=== PATIENT | male | born 1960 | race Caucasian/White ===

== ENCOUNTER 2024-08-27 04:21 | Inpatient (IN) | payer OTHER, SELFPAY ==
[2024-08-26 23:20] VITALS: BP 74/51
[2024-08-26 23:24] VITALS: BP 74/51
[2024-08-26 23:27] VITALS: BMI 31.6
[2024-08-26 23:47] LABS: % Basophils 0.3 % (0-2); % Eosinophils 0.1 % (0-6); % Immature Granulocytes 0.8 % (0-0.5); % Lymphocytes 19.8 % (20.5-51.1); % Monocytes 6.8 % (1.7-9.3); % Neutrophils 72.2 % (42.2-75.2); Absolute Immature Granulocytes 0.1 10^3/uL (0-0.05); Absolute Lymphocytes 1.4 10^3/uL (1.2-3.4); Absolute Monocytes 0.5 10^3/uL (0.1-0.6); Absolute Neutrophils 5.1 10^3/uL (1.4-6.5); Hemoglobin 10.1 g/dL (13.0-18.0); Mean Corp Hgb Conc. 33.7 g/dL (33.0-37.0); Mean Corpuscular Hgb 31.1 pg (27.0-31.0); Mean Corpuscular Volume 92.3 fL (80.0-94.0); Nucleated Red Blood Cells % 0 % (-); Platelet Count 146 10^3/uL (130-400); Red Blood Cell Count 3.25 10^6/uL (4.70-6.10); Red Cell Dist. Width 13.8 % (11.5-14.5); White Blood Cell Count 7.1 10^3/uL (4.8-10.8)
[2024-08-26 23:54] VITALS: BP 83/58
[2024-08-27] VITALS (75 sets, daily range): BP systolic 61–171; BP diastolic 46–145; BMI 31.6; BMI 33.0
[2024-08-27] MEDS: NSS 1000 IV ×5 (00:04→23:26)
--- NOTE | 2024-08-27 00:04 | ED.GENMED ---
History of Present Illness
<Carlos Becerra PA-C - Last Filed: 08/28/24 07:55>
General
Chief Complaint: Dehydration Symptoms
Source: patient, spouse and ambulance crew
Time Seen by Provider: 08/26/24 23:38
History of Present Illness
History of Present Illness:
64-year-old male with past medical history of atrial fibrillation, hypertension (noncompliant with medications secondary to insurance issues) presenting to the ER via EMS for evaluation of a questionable fall, reportedly called EMS because she
found patient on the ground upon getting home from work around 9:30 PM. History from the patient is somewhat limited as patient states that he did not even know he was on the ground at the time. He has no specific complaints at this time other
than he notes that he was a little bit constipated earlier in the week and that he has chronic back pain. Patient currently denies any chest pain, shortness of breath, abdominal pain, extremity related injury, headaches, visual disturbance, focal
weakness or numbness. Patient does have a medication list with him but is unable to recall most of his medications or if he takes them regularly.
Past History
<Carlos Becerra PA-C - Last Filed: 08/28/24 07:55>
Past History
ED Past Medical History: Arrthythmia and HTN
ED Past Surgical History: Orthopedic
Social History
Tobacco: Non-smoker
Alcohol: Former
Drug: None
Personal:
Living: with family
Review of Systems
<Carlos Becerra PA-C - Last Filed: 08/28/24 07:55>
Review of Systems
All Other Systems: ROS reviewed and negative except as documented in HPI and ROS
Phy Exam
<Carlos Becerra PA-C - Last Filed: 08/28/24 07:55>
Physical Exam
Physical Exam:
GENERAL: Alert , in no apparent distress, appears older than stated age, weight, unkempt
HEAD: Scattered superficial abrasions along the right cheek and forehead
EYE: Clear conjunctiva
NECK: Supple, no midline tenderness
ENT: o/p clr, dry mucous membranes
CARDIAC: Irregularly irregular rate and rhythm, heart rate between 106 and 123 bpm
LUNGS: Clear breath sounds bilaterally, no acute respiratory distress, no wheezes/rales/rhonchi
ABDOMEN: Soft, without focal tenderness, no r/g, no cvat, hepatomegaly, mottled right flank
NEUROLOGICAL: Alert and oriented to person place and time but does seem somewhat confused with answering medical related questions about his own personal history, no focal neuro deficits
SKIN: Warm and dry, skin intact., Pale and somewhat mottled
MUSCULOSKELETAL: Trace nonpitting ankle edema, well perfused. Bruising to the dorsum of the left foot
PSYCH: Somewhat flat affect
Scores
<Carlos Becerra PA-C - Last Filed: 08/28/24 07:55>
Heart Failure Risk
Heart Failure Risk Score: Not Applicable
Heart Score for Chest Pain Patients
STEMI patient?: Not applicable
Withdrawal Assessment of Alcohol
Withdrawal Assessment Completed?: Not applicable
Course
<Carlos Becerra PA-C - Last Filed: 08/28/24 07:55>
Orders/Labs/Results
Orders:
Orders
08/26/24 23:31
EKG [Electrocardiogram (*1)] Urgent
Reason for Study: Tachycardia
EKG- Treatment ONCE
08/26/24 23:34
CMP [Comprehensive Metabolic Panel] Urgent
08/26/24 23:35
Complete Blood Count/With Diff Urgent
08/26/24 23:49
0.9% Sodium Chloride 1000 ml [Nss] 1,000 ml IV BOLUS
08/26/24 23:57
Type+Screen Urgent
Alcohol Urgent
Ammonia Urgent
COVID-19 Antigen Urgent
Source: Nasal Swab
Creatine Phosphokinase Urgent
Comment: ADD ON
PTT Urgent
Prothrombin Time Urgent
Influenza A+B Rapid Molecular Urgent
TUTU Source: Nasal Swab
Specimen Description:
08/26/24 23:59
Add On - Microbiology Stat
Tests Added?: cpk
08/27/24 00:00
CT Cervical Spine W/o Iv Contr Urgent
Reason For Exam: ? fall, AMS
CT Chest/abd/pel Wo Iv Cont Urgent
Reason For Exam: hypotension, fall
CT Head W/o Iv Contrast Urgent
Reason For Exam: ? fall, head trauma
08/27/24 01:35
0.9% Sodium Chloride 1000 ml [Nss] 1,000 ml IV BOLUS
08/27/24 03:40
Admit/Transfer Patient As Directed
Co-Sign Provider:
Level of Care: Inpatient admission
Assign to:: IMU- Intermediate Care
Physician / Group: hospitalist
Diagnosis: kidney failure
Reason for Hospitalization: kidney failure
Expected length of stay greater than two midnights?: Yes
ELOS- Estimated Length of Stay in days: 2
I certify the patient meets the requirements for IP care: Yes
PRN Pain Medication Management As Directed
May give lesser potent ordered pain med per pt: Yes
preference::
Protocol:: Medication orders for pain may be administered in a
manner that supports deferring to patient preference
when the pt is:
- Requesting an ordered lesser potent pain medication.
Least to most potent pain medications are defined
as: acetaminophen < NSAID < tramadol < opioids
(morphine, oxycodone, hydromorphone).
- Requesting a lesser dose of the same medication IF
ORDERED.
- Requesting a less intrusive route of administration
if both routes are prescribed by the provider (PO <
IV).
08/27/24 03:41
Code Status As Directed
Resuscitation Status: Full Code
08/27/24 04:27
0.9% Sodium Chloride 1000 ml [Nss] 1,000 ml IV 150 mls/hr
Acetaminophen [Tylenol] 650 mg PO Q4HPRN PRN
Bisacodyl [Dulcolax] 10 mg RECTAL [id number] PRN
Docusate W/Senna [Senokot-S] 1 tablet PO BIDPRN PRN
HYDROmorphone [Dilaudid] 0.5 mg IV Q4HPRN PRN
Ondansetron Injectable [Zofran] 4 mg IV Q6HPRN PRN
Polyethylene Glycol Powder [Miralax] 17 grams PO DAILYPRN PRN
08/27/24 04:27
CARDIOLOGY CONSULT Routine
Consulting Provider: Siomara Martinez
Was physician already notified: No
Reason for consult: afib rvr, metastatic ca, rhabdo
Consult Notification Routine
Specialty to Notify: Cardiology
Date consulting provider notified: 08/27/24
Time consulting provider notified: 10:58
Notified:: Provider
Consult Notification Routine
Specialty to Notify: Nephrology
Date consulting provider notified: 08/27/24
Time consulting provider notified: 10:57
Notified:: Provider
Consult Notification Routine
Specialty to Notify: Oncology
Date consulting provider notified: 08/27/24
Time consulting provider notified: 10:57
Notified:: Provider
NEPHROLOGY CONSULT Routine
Consulting Provider: Bhavya Mejia
Was physician already notified: No
Reason for consult: rhabdo, avery cr 4.4, other labs ok, h/o NICM, dry, bnp pending
ONCOLOGY CONSULT Routine
Consulting Provider: Shagufta Medina
Was physician already notified: No
Reason for consult: new metastatic dz to spine, ribs, hips, unknown prim
Activity As Directed
Activity Level: With Assistance
Bladder Scan As Directed
Follow Bladder Retention/Intermittent Cath Algorithm?: Yes
PRN if no void in __ hours: 6
Frequency: Per Retention Algorithm
If Bladder Scan Result >: 400
then:: Straight cath
Orthostatic Vital Signs As Directed
Orthostatic VS Frequency: Daily
Pneumatic Compression Sleeves As Directed
Type: Knee high
Straight Cath As Directed
Frequency: Per Retention Algorithm
Additional Instructions: straight cath as needed per acute urinary retention algorithm for 24 hrs
Additional Instructions: for bladder scan greater than 400 mL
Vital Signs As Directed
Frequency: Per unit guidelines
Pulse Ox/spot Check [RESP] Routine
Quantity: 1
Pt Eval And Treat Routine
Activity Level: With Assistance
DX Deep Vein Thrombosis Video Routine
08/27/24 Breakfast
Cholesterol Lowering
At Your Request: Limited Participation
Cholesterol Lowering: Sodium, 2 Gram
08/27/24 06:54
ABO2 Urgent
BBK Wristband Number:
Associate notified that ABO2 has been ordered: [id number]
Date: 08/27/24
Time: 00:07
Electrical Prospecting Observer ID: [id number]
CA [id number] [S] IN AM
CEA IN AM
Complete Blood Count/No Diff IN AM
Creatine Phosphokinase IN AM
GGT [GGTP] IN AM
NT-proBNP IN AM
PSA, Total - Screen IN AM
Phosphorus IN AM
TSH IN AM
Vitamin B12 IN AM
Vitamin D, 25-OH IN AM
08/27/24 08:00
Heparin 5,000 units SC Q8
Metoprolol Xl [Toprol Xl] 25 mg PO DAILY
08/27/24 10:30
Urine Protein/Creat Ratio (Random) [Protein/Creat Ratio (Random)] IN AM
Date Specimen was Collected: 08/27/24
Time Specimen was Collected: 10:28
Urine Sodium IN AM
Date Specimen was Collected: 08/27/24
Time Specimen was Collected: 10:28
Abnormal Lab Results
08/26/24 08/26/24 08/26/24
23:34 23:35 23:57
RBC 3.25 L 10^6/uL
(4.70-6.10)
Hgb 10.1 L g/dL
(13.0-18.0)
Hct 30.0 L %
(39.0-52.0)
MCH 31.1 H pg
(27.0-31.0)
Abs Immat Gran (auto) 0.1 H 10^3/uL
(0-0.05)
Immature Gran % 0.8 H %
(0-0.5)
Lymphocytes % 19.8 L %
(20.5-51.1)
PT 26.3 H Sec
(11.4-14.6)
APTT 85.3 H Sec
(23.4-35.0)
Sodium 132 L mmol/L
(135-145)
Chloride 95 L mmol/L
(98-107)
BUN 65 H mg/dl
(9-20)
Creatinine 4.4 H* mg/dL
(0.7-1.3)
Glucose 118 H mg/dl
(70-99)
Calcium 7.7 L mg/dl
(8.4-10.2)
Total Bilirubin 2.1 H mg/dl
(0.2-1.3)
AST 370 H U/L
(17-59)
Alkaline Phosphatase > 2400 H U/L
(38-126)
Ammonia < 9 L umol/L
(9-30)
Creatine Kinase 6235 H U/L
(55-170)
Total Protein 6.0 L g/dl
(6.3-8.2)
08/26/24 23:35
08/26/24 23:34
Vital Signs
Initial and Last Documented VS:
Initial Vital Signs
Temp Pulse BP Pulse Ox
97.3 F 74 74/51 100
08/26/24 23:20 08/26/24 23:20 08/26/24 23:20 08/26/24 23:20
Last Documented Vital Signs
Temp Pulse Resp BP Pulse Ox
98.0 F 112 16 92/53 96
08/28/24 04:25 08/28/24 07:00 08/28/24 07:00 08/28/24 07:00 08/28/24 07:00
<Ganesh Murphy, DO - Last Filed: 08/27/24 00:19>
Orders/Labs/Results
Orders:
Orders
08/26/24 23:31
EKG [Electrocardiogram (*1)] Urgent
Reason for Study: Tachycardia
EKG- Treatment ONCE
08/26/24 23:34
CMP [Comprehensive Metabolic Panel] Urgent
08/26/24 23:35
Complete Blood Count/With Diff Urgent
08/26/24 23:49
0.9% Sodium Chloride 1000 ml [Nss] 1,000 ml IV BOLUS
08/26/24 23:57
Type+Screen Urgent
Alcohol Urgent
Ammonia Urgent
COVID-19 Antigen Urgent
Source: Nasal Swab
Creatine Phosphokinase Urgent
Comment: ADD ON
PTT Urgent
Prothrombin Time Urgent
Influenza A+B Rapid Molecular Urgent
TUTU Source: Nasal Swab
Specimen Description:
08/26/24 23:59
Add On - Microbiology Stat
Tests Added?: cpk
08/27/24 00:00
CT Cervical Spine W/o Iv Contr Urgent
Reason For Exam: ? fall, AMS
CT Chest/abd/pel Wo Iv Cont Urgent
Reason For Exam: hypotension, fall
CT Head W/o Iv Contrast Urgent
Reason For Exam: ? fall, head trauma
08/27/24 01:35
0.9% Sodium Chloride 1000 ml [Nss] 1,000 ml IV BOLUS
08/27/24 03:40
Admit/Transfer Patient As Directed
Co-Sign Provider:
Level of Care: Inpatient admission
Assign to:: IMU- Intermediate Care
Physician / Group: hospitalist
Diagnosis: kidney failure
Reason for Hospitalization: kidney failure
Expected length of stay greater than two midnights?: Yes
ELOS- Estimated Length of Stay in days: 2
I certify the patient meets the requirements for IP care: Yes
PRN Pain Medication Management As Directed
May give lesser potent ordered pain med per pt: Yes
preference::
Protocol:: Medication orders for pain may be administered in a
manner that supports deferring to patient preference
when the pt is:
- Requesting an ordered lesser potent pain medication.
Least to most potent pain medications are defined
as: acetaminophen < NSAID < tramadol < opioids
(morphine, oxycodone, hydromorphone).
- Requesting a lesser dose of the same medication IF
ORDERED.
- Requesting a less intrusive route of administration
if both routes are prescribed by the provider (PO <
IV).
08/27/24 03:41
Code Status As Directed
Resuscitation Status: Full Code
08/27/24 04:27
0.9% Sodium Chloride 1000 ml [Nss] 1,000 ml IV 150 mls/hr
Acetaminophen [Tylenol] 650 mg PO Q4HPRN PRN
Bisacodyl [Dulcolax] 10 mg RECTAL [id number] PRN
Docusate W/Senna [Senokot-S] 1 tablet PO BIDPRN PRN
HYDROmorphone [Dilaudid] 0.5 mg IV Q4HPRN PRN
Ondansetron Injectable [Zofran] 4 mg IV Q6HPRN PRN
Polyethylene Glycol Powder [Miralax] 17 grams PO DAILYPRN PRN
08/27/24 04:27
CARDIOLOGY CONSULT Routine
Consulting Provider: Siomara Martinez
Was physician already notified: No
Reason for consult: afib rvr, metastatic ca, rhabdo
Consult Notification Routine
Specialty to Notify: Cardiology
Date consulting provider notified: 08/27/24
Time consulting provider notified: 10:58
Notified:: Provider
Consult Notification Routine
Specialty to Notify: Nephrology
Date consulting provider notified: 08/27/24
Time consulting provider notified: 10:57
Notified:: Provider
Consult Notification Routine
Specialty to Notify: Oncology
Date consulting provider notified: 08/27/24
Time consulting provider notified: 10:57
Notified:: Provider
NEPHROLOGY CONSULT Routine
Consulting Provider: Bhavya Mejia
Was physician already notified: No
Reason for consult: rhabdo, avery cr 4.4, other labs ok, h/o NICM, dry, bnp pending
ONCOLOGY CONSULT Routine
Consulting Provider: Shagufta Medina
Was physician already notified: No
Reason for consult: new metastatic dz to spine, ribs, hips, unknown prim
Activity As Directed
Activity Level: With Assistance
Bladder Scan As Directed
Follow Bladder Retention/Intermittent Cath Algorithm?: Yes
PRN if no void in __ hours: 6
Frequency: Per Retention Algorithm
If Bladder Scan Result >: 400
then:: Straight cath
Orthostatic Vital Signs As Directed
Orthostatic VS Frequency: Daily
Pneumatic Compression Sleeves As Directed
Type: Knee high
Straight Cath As Directed
Frequency: Per Retention Algorithm
Additional Instructions: straight cath as needed per acute urinary retention algorithm for 24 hrs
Additional Instructions: for bladder scan greater than 400 mL
Vital Signs As Directed
Frequency: Per unit guidelines
Pulse Ox/spot Check [RESP] Routine
Quantity: 1
Pt Eval And Treat Routine
Activity Level: With Assistance
DX Deep Vein Thrombosis Video Routine
08/27/24 Breakfast
Cholesterol Lowering
At Your Request: Limited Participation
Cholesterol Lowering: Sodium, 2 Gram
08/27/24 06:54
ABO2 Urgent
BBK Wristband Number:
Associate notified that ABO2 has been ordered: [id number]
Date: 08/27/24
Time: 00:07
Electrical Prospecting Observer ID: [id number]
CA 19-9 [S] IN AM
CEA IN AM
Complete Blood Count/No Diff IN AM
Creatine Phosphokinase IN AM
GGT [GGTP] IN AM
NT-proBNP IN AM
PSA, Total - Screen IN AM
Phosphorus IN AM
TSH IN AM
Vitamin B12 IN AM
Vitamin D, 25-OH IN AM
08/27/24 08:00
Heparin 5,000 units SC Q8
Metoprolol Xl [Toprol Xl] 25 mg PO DAILY
08/27/24 10:30
Urine Protein/Creat Ratio (Random) [Protein/Creat Ratio (Random)] IN AM
Date Specimen was Collected: 08/27/24
Time Specimen was Collected: 10:28
Urine Sodium IN AM
Date Specimen was Collected: 08/27/24
Time Specimen was Collected: 10:28
Abnormal Lab Results
08/26/24 08/26/24 08/26/24
23:34 23:35 23:57
RBC 3.25 L 10^6/uL
(4.70-6.10)
Hgb 10.1 L g/dL
(13.0-18.0)
Hct 30.0 L %
(39.0-52.0)
MCH 31.1 H pg
(27.0-31.0)
Abs Immat Gran (auto) 0.1 H 10^3/uL
(0-0.05)
Immature Gran % 0.8 H %
(0-0.5)
Lymphocytes % 19.8 L %
(20.5-51.1)
PT 26.3 H Sec
(11.4-14.6)
APTT 85.3 H Sec
(23.4-35.0)
Sodium 132 L mmol/L
(135-145)
Chloride 95 L mmol/L
(98-107)
BUN 65 H mg/dl
(9-20)
Creatinine 4.4 H* mg/dL
(0.7-1.3)
Glucose 118 H mg/dl
(70-99)
Calcium 7.7 L mg/dl
(8.4-10.2)
Total Bilirubin 2.1 H mg/dl
(0.2-1.3)
AST 370 H U/L
(17-59)
Alkaline Phosphatase > 2400 H U/L
(38-126)
Ammonia < 9 L umol/L
(9-30)
Creatine Kinase 6235 H U/L
(55-170)
Total Protein 6.0 L g/dl
(6.3-8.2)
08/26/24 23:35
08/26/24 23:34
Vital Signs
Initial and Last Documented VS:
Initial Vital Signs
Temp Pulse BP Pulse Ox
97.3 F 74 74/51 100
08/26/24 23:20 08/26/24 23:20 08/26/24 23:20 08/26/24 23:20
Last Documented Vital Signs
Temp Pulse Resp BP Pulse Ox
98.0 F 112 16 92/53 96
08/28/24 04:25 08/28/24 07:00 08/28/24 07:00 08/28/24 07:00 08/28/24 07:00
<Carlos Becerra PA-C - Last Filed: 08/28/24 07:55>
MDM/Problems Addressed
Differential Diagnosis Includes:
Sepsis/bacteremia, UTI, CVA given patient's history of A-fib and not properly anticoagulated, visceral injury secondary to trauma, alcohol abuse, dehydration, electrolyte derangement, rhabdomyolysis, renal injury
MDM/Problems Addressed:
64-year-old male presenting the emergency department for evaluation of a possible fall sustained an unknown time. Patient reportedly found on the ground by on her getting home. reportedly en route to the emergency department. Patient
found to be profoundly hypertensive at 74/52 and in A-fib with rapid ventricular rate. Trauma studies ordered. Labs ordered. Fluids ordered for patient's hypotension. Patient will be admitted
Chronic conditions affecting care: Arrhythmia
Acute Exacerbation and/or Progression of Chronic Illness: Arrhythmia
<Carlos Becerra PA-C - Last Filed: 08/28/24 07:55>
*Radiology
Radiology exam reviewed: radiology read reviewed
*Pulse Oximetry
Patient hypoxic: no
*EKG
Interpreted by ED Provider?: Yes
Heart Rate: 105
Rate: tachycardiac
Rhythm: a-fib
QRS Pattern: right bundle branch block
*Stockroom Helper Interpretation
Rate: tachycardiac
Rhythm: a-fib
*Critical Care Note
Total Time (30-74mins, 75-104mins- exclusive of procedures): 35
comment:
Critical care statement: A total of 35 minutes of critical care time was provided for this patient. This includes management of unstable vital signs, evaluation of the patient at bedside, reviewing the patient's pertinent medical records, discussion
with consultants, review of old EKGs and review of pertinent medical records. This time with separate from time utilized to perform the aforementioned documented procedures
<Carlos Becerra PA-C - Last Filed: 08/28/24 07:55>
Comment
Comment:
12 AM: Patient's now at the bedside stating that at some point between 6:30 AM and 9:30 PM when she got home is when she found the patient on the ground. She states that over the last year plus patient has been having significant medical
difficulties but due to not having insurance he has not been dealing with these medical issues properly. He is noncompliant with his anticoagulant regimen, cannot afford the Eliquis and was taking Pradaxa intermittently, most recently had only been
taking a little bit of aspirin. 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 Patient has not had any fevers or recent illnesses. notes that patient's urine has been much darker in color lately and also
states that he was profoundly constipated for approximately 3 weeks, took a laxative on and had an entire day of large-volume stool. Patient has insurance in [place] where he has lived previously and was planning to bring him back to
[place] next week but felt tonight he was too ill which is why she acted EMS.
Patient Management
Discussion with other providers: Hospitalist
Escalation/DeEscalation of care consider admission/obs:
Negative patient's trauma studies were negative for any acute intracranial pathology however there was significant concern for widely spread metastatic disease with suspected source being the prostate. Patient remains hypotensive following 1 L of
IV fluids. Found to be in significant renal failure which we are unsure is acute or chronic given patient has not been seen by medical provider in quite some time. CPK profoundly elevated at greater than 6500. Will order second liter of fluids.
Patient will require ICU level of care secondary to his current instability and current condition. Hospitalist team notified and accepts for continued evaluation and treatment.
ED Attending Note
<Carlos Becerra PA-C - Last Filed: 08/28/24 07:55>
-
Portions of this chart may have been created with voice recognition software.� Occasional wrong word or��sound alike� substitutions may have occurred due to the inherent limitations of voice recognition software.
<Ganesh Murphy DO - Last Filed: 08/27/24 00:19>
ED Attending Note
Patient seen and examined by attending physician: Yes
I performed the substantive portion of visit, reviewed & personally made and approve the management plan that is documented in note by myself or LEILA.: Yes
ED Attending Note:
I have seen and evaluated the patient with a [id number] encounter. I have spoken to the advance practicer provider and involved in the medical history, the physical exam, medical decision making.
Evaluation and management service: agree unless noted differently below.
Results interpretation: agree unless noted differently below.
Focused HPI: 64-year-old male presenting for evaluation for altered mental status. His found him on the floor. It is unsure if he fell or how long he was there. Patient has bizarre affect. He appears disoriented. at bedside states
that this has been an ongoing issue. He has refused medical care. He is noncompliant with his medicines.
Physical exam: Flat affect. Dry mucous membranes. Tachycardic and irregular
Medical Decision Making: Will provide IV fluids. Will obtain CT head. Will look for evidence of hepatic encephalopathy or metabolic abnormalities. Patient will ultimately require admission
Discharge Plan
Departure
Patient Disposition: Admit
Date of Disposition: 08/27/24
Time of Disposition: 01:56
Presentation/result/management discussed w/ accepting MD/DO: Hospitalist
Discharge Problem:
AVERY (acute kidney injury), Rhabdomyolysis, Metastasis to spinal column
Interventions
Interventions:
*Risk Screen - Suicide Last Done: 08/27/24 14:08
*General Assessment Last Done: 08/26/24 23:20
*Neglect/Abuse Screening Last Done: 08/26/24 23:20
ED- Fall Risk Assessment Last Done: 08/27/24 00:11
*ED COVID-19 Vaccine History Last Done: 08/27/24 14:00
*Nursing Disposition Last Done: 08/27/24 11:30
ED- Cardiac Assessment Last Done: 08/27/24 00:12
ED- Neurological Assessment Last Done: 08/26/24 23:34
ED- Pulmonary Assessment Last Done: 08/26/24 23:34
Discharge Date and Time
Discharge Date/Time: 08/27/24 11:30
[2024-08-27 00:21] LABS: Ammonia < 9 umol/L (9-30)
[2024-08-27 00:27] LABS: Alcohol None Detected
[2024-08-27 00:32] LABS: Creatine Phosphokinase 6235 U/L (55-170)
[2024-08-27 00:36] LABS: COVID-19 Antigen Negative (Negative)
[2024-08-27 00:40] LABS: ALT (SGPT) 24 U/L (0-50); AST (SGOT) 370 U/L (17-59); Albumin 3.5 g/dl (3.5-5.0); Blood Urea Nitrogen 65 mg/dl (9-20); Calcium 7.7 mg/dl (8.4-10.2); Carbon Dioxide 24 mmol/L (22-30); Chloride 95 mmol/L (98-107); Estimated Creatinine Clearance 21 ml/min; Glucose 118 mg/dl (70-99); Potassium 4.4 mmol/L (3.5-5.1); Sodium 132 mmol/L (135-145); Total Bilirubin 2.1 mg/dl (0.2-1.3)
[2024-08-27 01:28] LABS: INR 2.42; PT 26.3 Sec (11.4-14.6)
[2024-08-27 01:30] LABS: APTT 85.3 Sec (23.4-35.0)
[2024-08-27 02:03] LABS: Alkaline Phosphatase > 2400 U/L (38-126)
--- NOTE | 2024-08-27 03:12 | HPS.HSE ---
Family Physician
-
Family Physician:
Chief Complaint
-
Weakness
History of Present Illness
This is a 64-year-old with past medical history significant for atrial fibrillation, nonischemic cardiomyopathy, congestive heart failure with recovered EF, presenting to the emergency department after being found on the floor by spouse in the
setting of approximately 10 months history of progressive ambulatory difficulties and worsening weakness.
Past spouse and patient he has been having ambulatory difficulties since around October 2023. Initially he had concern for sciatica for which he followed up with a chiropractor. He had no improvement with a chiropractor. He started having weakness
in his legs and ambulatory difficulties. He reports some weight loss that he had to discontinue his diuretic. He also had to discontinue valsartan due to decreasing blood pressure. He now is back on Lasix 40 mg for peripheral lower extremity
edema.
On this particular occasion patient apparently went to bed in his usual state of health and woke up remembered having plate break fast. Denies have any fall. Stated that he wanted to stay on the ground to rest. Spouse found him at around 9 PM on
the ground prior to bed face up with his left leg bent under his body. Patient denied having any pain. He was unable to get up with help due to weakness. He had some incontinence. There was no alteration in mental status. Patient has had some
concerns about malignancy since the onset of his back pain and lower extremity pain.
He stated that he had blood work done in October which showed normal kidney function. Patient has not been on apixaban due to insurance issues and he has been taking baby aspirin for anticoagulation. He recently received some Pradaxa which he had
not taking for about 3 doses. Reports some epistaxis but denied any melena or hematochezia. Denied any diarrhea nausea or vomiting. Appetite is reduced.
In the emergency department he was afebrile, he was satting 90% on room air, blood pressure was 87/58 his heart rate was around 120. ECG showed atrial fibrillation with rapid ventricular response. CBC was mostly unremarkable with white count of 7
hemoglobin of 10 and plate count 146. INR was 2.4. Electrolytes notable for a sodium of 132 potassium of 4.4 bicarb of 24. BUN and creatinine are elevated at 65.4.4 respectively. Calcium was 7.7 total bilirubin 2.1, AST 370, ALT normal and
markedly elevated alk phos 2400. His CK was also markedly elevated at 6200. COVID and influenza negative.
CT of the chest abdomen pelvis shows no acute fractures or dislocations. There were multiple lesions concerning for metastatic disease with bony involvement. No other acute intrathoracic, intra-abdominal or intracranial process.
Medical History
Past Medical History
Past Medical History: Reports Arrhythmia (Atrial fibrillation) and CHF (Nonischemic cardiomyopathy)
Past Surgical History: Reports None
Social History
Tobacco: Non-smoker
Alcohol: None
Drug: None
Personal:
Living: With Family
Family History
Family History: Not pertinent
Allergies / Home Medications
Allergies reflects when Allergies were last updated in [facility].
Home Medications with original date entered in [facility]
Allergy/Medication List:
Allergies
Allergy/AdvReac Type Severity Reaction Status Date / Time
No Known Allergies Allergy Verified 08/26/24 23:28
Home Medications
aspirin 81 mg capsule 81 mg PO DAILY 08/27/24
carvedilol 25 mg tablet 25 mg PO BID 08/27/24
furosemide 40 mg tablet (Lasix) 40 mg PO DAILY 08/27/24
magnesium 250 mg tablet 250 mg PO DAILY 08/27/24
multivitamin 1 tab PO DAILY 08/27/24
Review of Systems
-
History Source: Patient and Family
Constitutional: Reports Weight Loss and Fatigue
EENT: Reports No Symptoms
Respiratory: Reports No Symptoms
Cardiac: Reports No Symptoms
Abdomen/GI: Reports No Symptoms
: Reports Incontinence
Musculoskeletal: Reports Other (back pain)
Skin: Reports No Symptoms
Neurological: Reports Weakness
Endocrine: Reports No Symptoms
Hematologic/Lymphatic: Reports No Symptoms
Psych: Reports No Symptoms
Physical Exam
Vital Signs
Vital Signs
Temp Pulse Resp BP Pulse Ox
97.3 F 101 21 87/58 98
08/26/24 23:20 08/27/24 01:30 08/27/24 01:30 08/27/24 01:30 08/27/24 01:30
Physical Exam
General: Well Developed, Comfortable, Conversant and Appears Chronically Ill
HEENT: NormoCephalic, Anicteric, Moist mucous membranes, Atraumatic, PERRLA, Silt Conjunctivae and Neck Nontender
Respiratory: Clear
Cardiac: S1/S2 and Irregular Rhythm
Breast: Deferred by me
GI: Soft, Non Tender, Normal Bowel Sounds and No Hepatosplenomegaly
Rectal: Deferred by Provider
Genito-urinary: Deferred by me
Musculoskeletal: No Clubbing, No Cyanosis, Edema, Left Lower Extremity and Edema, Right Lower Extremity
Skin: Warm
Neuro: AO x 3 and Nonfocal/grossly intact
Hematologic/Lymphatic: No Lymphadenopathy
Psych: Calm
Laboratory Results
-
08/26/24 23:35
08/26/24 23:34
Laboratory Results
PT 26.3 Sec (11.4-14.6) H 08/26/24 23:57
INR 2.42 08/26/24 23:57
APTT 85.3 Sec (23.4-35.0) H 08/26/24 23:57
Total Bilirubin 2.1 mg/dl (0.2-1.3) H 08/26/24 23:34
AST 370 U/L (17-59) H 08/26/24 23:34
ALT 24 U/L (0-50) 08/26/24 23:34
Alkaline Phosphatase > 2400 U/L (38-126) H 08/26/24 23:34
Data Reviewed
-
CT Scan: Report Reviewed by me
Medical Tests (Nuc Med, Echo, EKG etc): Image Personally Visualized and interpreted
Lab Data: Labs Reviewed by me
Old Records: Reviewed
Impression/Plan
-
IMPRESSION:
64 y.o male w/ afib, NICM coming in with weakness and found down. Has rhabdo with severe AVERY. Also has findings c/w metastatic disease with osseous mets to spine, ribs, hips, retroperitoneal lymph nodes and biliary lymph nodes. No obvious liver
lesions in the non-contrast CT.
PLAN:
1. AVERY/Rhabdo - suspect partly due to rhabdomyolysis but unsure given duration of being down and degree of cpk elevatin and AVERY there is possibly ongoing CKD whose etiology is unclear. Patient has h/o CHF but appears euvolemic today. Not currently
on diuretics and has boderline low BPs recently. No hydronephrosis or bladder retention obvious on CT scan.
- admit to imu
- continue with IV fluids NS at 150 ml/hr for now
- monitor strict i/os
- trend cpk
- monitor for signs of oveload and may initiate diuretics if SBP > 110
- phos level, u/a, urine protein/cr,
- nephrology consultation
2.AFIB RVR - known afib, was to be on apixaban but could not afford. On coreg 25 bid and aspirin. Rates in the 110s
- rehydration
- hold ac, restart apixaban pending decision on biopsy
- consider changing carvedilol to metoprolol succinate for now due to low bp
- diltiazem gtt if needed for rate control
- tele
- cardiology consult
3. Elevated T bili and alkphos - liver/billiary mets versus non liver elevation of alkphos
- check ggt
-check direct bili
- RUQ u/s (non-con CT)
- consider abdominal mri w/o contrast
4. Metastatic dz - Suspect elevated alkphos is due to osseus lesions from metastatic disease. No clear primary but concern for lung, prostate, kidney, skin
- oncology consult
- check psa, cea, ca 19-9, afp
- additional imaging somewhat limited but lymph node or lesions may be biopsied
- patient prefers to complete w/u in [place] if possible
- PT evaluation
DVT PPX - heparin sq
Code status - full code
[2024-08-27 07:08] LABS: Hematocrit 27.7 % (39.0-52.0); Hemoglobin 9.3 g/dL (13.0-18.0); Mean Corp Hgb Conc. 33.6 g/dL (33.0-37.0); Mean Corpuscular Hgb 30.9 pg (27.0-31.0); Mean Platelet Volume 9.1 fL (7.4-10.4); Platelet Count 120 10^3/uL (130-400); Red Blood Cell Count 3.01 10^6/uL (4.70-6.10); Red Cell Dist. Width 13.9 % (11.5-14.5); White Blood Cell Count 5.2 10^3/uL (4.8-10.8)
[2024-08-27] MEDS: ProAmatine 5 MG PO (07:16)
[2024-08-27 07:36] LABS: ALT (SGPT) 29 U/L (0-50); AST (SGOT) 360 U/L (17-59); Albumin 3.2 g/dl (3.5-5.0); Blood Urea Nitrogen 69 mg/dl (9-20); Calcium 7.6 mg/dl (8.4-10.2); Carbon Dioxide 28 mmol/L (22-30); Chloride 96 mmol/L (98-107); Estimated Creatinine Clearance 18 ml/min; GGTP 64 U/L (15-73); Glucose 123 mg/dl (70-99); Phosphorus 3.8 mg/dl (2.5-4.5); Potassium 4.4 mmol/L (3.5-5.1); Sodium 134 mmol/L (135-145); Total Bilirubin 1.6 mg/dl (0.2-1.3); eGFR 12.18
[2024-08-27 07:42] LABS: NT-proBNP 9920 pg/ml
[2024-08-27] MEDS: LEVOPHED 250 IV ×4 (07:45→21:22)
[2024-08-27 07:58] LABS: TSH 1.65 uIU/ml (0.47-4.68)
[2024-08-27 08:17] LABS: Vitamin B12 265 pg/ml (239-931)
[2024-08-27 08:35] LABS: Alkaline Phosphatase > 2400 U/L (38-126); Creatine Phosphokinase 7255 U/L (55-170)
--- NOTE | 2024-08-27 09:15 | W.CON.NEPH ---
Addendum entered and electronically signed by Bhavya Mejia MD 08/27/24 13:38:
note pt also with h/o heavy Ibuprofen use so may have underlying CKD too, need old labs to compare
Original Note:
Consultation
-
Date/Time Consultation Requested: 08/27/247
Date/Time Consultation Performed: 08/27/2435
Requesting Provider: Shahana Waddell
Performing Provider: Bhavya Bazan
Reason for Consultation: AVERY
Medical History
-
Chief Complaint: Gen weakness
History of Present Illness:
64-year-old with past medical history significant for atrial fibrillation on ASA, coreg not on AC due to insurance coverage , nonischemic cardiomyopathy, congestive heart failure with recovered EF on lasix, presenting to the emergency department
after being found on the floor by spouse in the setting of approximately 10 months history of progressive ambulatory difficulties and worsening weakness.
Past spouse and patient he has been having ambulatory difficulties since around October 2023. Initially he had concern for sciatica for which he followed up with a chiropractor and was taking lot of Ibuprofen for this. He started having weakness in
his legs and ambulatory difficulties. He reports some weight loss 150lbs in more than 8m duration. DUe to his low BPs he is off ARB and lasix. He still with some LE edema which seem chronic.
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 He reports having difficulty to urinate with hesitancy for a long time but did not seek medical attention. No PSA was checked before. Spouse found him at around 9 PM
yesterday on the ground prior to bed face up with his left leg bent under his body. Patient denied having any pain. He was unable to get up with help due to weakness. He had some incontinence.
Denied any diarrhea nausea or vomiting. Appetite is reduced. no fever, chest pain or shortness of breath.
On arrival to the ER today noted to have hypotension and 70s, received total of 4 L of normal saline, did not have any urine output so far and plan to have a Hernandez catheter placement. concerned about increasing abdominal distention.
His laboratory data noted creatinine of 4.4, with rhabdomyolysis 6235 however this morning creatinine increased to 5, CKs up to 7200. He is on pressors for hypotension. CT scan chest abdomen pelvis without contrast shows significant bone mineral
stasis with bilateral hydronephrosis, distended bladder suspect prostate cancer.
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
Past Medical History
atrial fibrillation, nonischemic cardiomyopathy, congestive heart failure with recovered EF
Social History
Tobacco: Non-Smoker
Alcohol: None
Personal:
Living: With Family
Employment: Other ( worked in the [employer])
Family History
no CKD
Allergies / Home Medications
Allergy/AdvReac Type Severity Reaction Status Date / Time
No Known Allergies Allergy Verified 08/26/24 23:28
�Medication �Instructions �Recorded �Confirmed �Type
aspirin 81 mg capsule 81 mg PO DAILY 08/27/24 08/27/24 History
carvedilol 25 mg tablet 25 mg PO BID 08/27/24 08/27/24 History
furosemide 40 mg tablet (Lasix) 40 mg PO DAILY 08/27/24 08/27/24 History
magnesium 250 mg tablet 250 mg PO DAILY 08/27/24 08/27/24 History
multivitamin 1 tab PO DAILY 08/27/24 08/27/24 History
Review of Systems
-
All complete 12 point review of system have been inquired and 4 negative other than stated in HPI
Physical Exam
Vital Signs
Vital Signs
Temp Pulse Resp BP Pulse Ox
97.3 F 102 31 82/56 99
08/26/24 23:20 08/27/24 06:52 08/27/24 06:52 08/27/24 07:16 08/27/24 06:52
Lab Results
WBC 5.2 10^3/uL (4.8-10.8) 08/27/24 06:54
RBC 3.01 10^6/uL (4.70-6.10) L 08/27/24 06:54
Hgb 9.3 g/dL (13.0-18.0) L 08/27/24 06:54
Hct 27.7 % (39.0-52.0) L 08/27/24 06:54
Plt Count 120 10^3/uL (130-400) L 08/27/24 06:54
Sodium 134 mmol/L (135-145) L 08/27/24 06:54
Potassium 4.4 mmol/L (3.5-5.1) 08/27/24 06:54
Chloride 96 mmol/L (98-107) L 08/27/24 06:54
Carbon Dioxide 28 mmol/L (22-30) 08/27/24 06:54
BUN 69 mg/dl (9-20) H 08/27/24 06:54
Creatinine 5.0 mg/dL (0.7-1.3) H* 08/27/24 06:54
eGFR 12.18 08/27/24 06:54
Glucose 123 mg/dl (70-99) H 08/27/24 06:54
Calcium 7.6 mg/dl (8.4-10.2) L 08/27/24 06:54
Phosphorus 3.8 mg/dl (2.5-4.5) 08/27/24 06:54
Ahr-B-Boppxyjidcw Pept 9920 pg/ml 08/27/24 06:54
Albumin 3.2 g/dl (3.5-5.0) L 08/27/24 06:54
CTchest abd ;
IMPRESSION:
CHEST:
1. MULTIFOCAL BLASTIC OSSEOUS METASTATIC DISEASE involving the thoracic spine, ribs, and sternum.
2. Acute superior and inferior endplate fractures of T7 (either pathologic or traumatic in etiology).
3. Multiple acute and subacute right rib fractures (either pathologic or traumatic in etiology).
4. Moderate cardiomegaly.
5. Multiple small subcentimeter centrilobular pulmonary nodules in the right upper lobe which are most likely secondary to peripheral endobronchial infection. Pulmonary metastases are an alternative diagnostic possibility.
6. Minimal bilateral pleural effusions.
ABDOMEN and PELVIS:
1. SEVERE PROSTATE CANCER with extracapsular extension of malignancy and URINARY BLADDER OUTLET OBSTRUCTION.
2. Severely distended urinary bladder.
3. Moderate bilateral hydronephrosis.
4. VERY EXTENSIVE BLASTIC OSSEOUS METASTATIC DISEASE in the lumbar spine, pelvic bones, and proximal femurs.
5. Multiple pathologic fractures in the lower lumbar spine.
6. Extra osseous extension of malignancy from the sacrum and left pubic bone into the adjacent soft tissues.
7. SEVERE METASTATIC LYMPHADENOPATHY in the pelvis.
8. Moderate metastatic lymphadenopathy in the retroperitoneum.
9. Large amount of fecal material in the proximal colon.
10. Moderate splenomegaly.
CT head:
IMPRESSION:
1. No CT evidence for acute intracranial hemorrhage.
2. Moderate-sized chronic transcortical infarct in the lateral right frontal lobe and right insular cortex.
3. Moderate bilateral frontal lobe volume loss.
4. Moderate right frontal sinusitis.
Physical Exam
General: Awake, Alert, Oriented, AOx3 and Other ( chronically ill appearance)
HEENT: EOMI, Anicteric, Facial Symmetry and No JVD
Respiratory: Clear, Normal Excursion and Nonlabored Respirations
Cardiac: S1/S2 and Other ( A. fib with RVR)
Breast: Deferred by me
Abdomen: Soft, Nontender and Nondistended
Musculoskeletal: No Cyanosis and Edema (2+)
Skin: No Rash
Neuro: Nonfocal/Grossly Intact
Psych: Appropriate
Data Reviewed
-
Radiology: Report Reviewed by me, Discussed with Physician, Discussed with Patient and Discussed with Family
Labs: Labs Reviewed by me, Discussed with Physician, Discussed with Patient and Discussed with Family
Assessment/Plan
-
IMP:
AVERY
Bilat hydronephrosis with distended bladder-ALSTON
Hypotension
Rhabdomyolysis
AFIB RVR
Metastatic dz - likely prostate
Significantly elevated ALP likely from bone metastases
Anemia
Hyponatremia
Plan:
A/w found down
AVERY-severe with RHabdo and obst uropathy-bilat hydro on CT, consulted
place hernandez, check urine studies
aggressive IVF however caution with h/o CHF, BNP is high
trend CK-increasing trend
hypotension-pressors to keep MAP>65
no emergent indication of HD however likely need in next 24-48hrs if renal function worsens
avoid nephrotoxins
d/w pt and at bedside in detail
d/w primary
[2024-08-27 10:39] LABS: Urine Albumin 2+ (Neg - Trace); Urine Bilirubin Negative (Negative); Urine Character Clear (Clear); Urine Color Amber; Urine Glucose Negative (Negative); Urine Ketone Negative (Negative); Urine Leukocyte 1+ (Negative); Urine Nitrite Negative (Negative); Urine Occult Blood 4+ (Negative); Urine Specific Gravity 1.015 (<1.030); Urine Urobilinogen 1+ (Neg - 1+)
[2024-08-27 10:44] LABS: Urine Bacteria Few (Negative); Urine Red Blood Cell 40-50 /HPF (0-2)
[2024-08-27 10:59] LABS: Protein/creatinine Ratio 0.2; Urine Protein 27 mg/dl; Urine Sodium 36 mmol/L (30-90)
--- NOTE | 2024-08-27 12:13 | CON.INTV ---
Addendum entered and electronically signed by Stefanie Ulrich MD 08/27/24 13:39:
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 She is requesting midline instead
Reviewed reasoning for PICC line over midline. states that she would like to see how he does with the midline. I reminded her that he is critically ill and a PICC line will help us manage any issues given that he is requiring pressors
Although I disagree with her request, I encouraged the to consider PICC line to allow us for additional ports of access. This will be an ongoing discussion.
I did my best to educate her with regards to the potential risks of a PICC line
All questions answered to the best of my ability
Original Note:
Consultation
Consultation Request
Date/Time Consultation Requested: 08/27
Date/Time Consultation Performed: 08/27
Reason for Consultation: Critical care
Medical History
-
History of Present Illness:
History obtained from the patient but patient is not a very good historian. Most history is obtained from his who used to work at [facility] 20 years ago. Patient has a history of atrial fibrillation, nonischemic cardiomyopathy with
history of heart failure with myocarditis 20+ years ago follows cardiology at [facility], does not routinely see a physician. Patient has lost 100 pounds over the last year, refused to be seen by any physician. He has had multiple falls
recently, and apparently had mental status changes few days ago. Despite multiple request by to go seek medical attention, patient refused. Patient was found down at around 9:30 PM Wednesday night. was working throughout the day. EMS
was contacted. To me he denies any symptoms however he states he does not feel good. Specifically he denies chest pain, abdominal pain, nausea, diarrhea, shortness of breath, blood in urine or stool, falls or syncope. Not sure his ability to give
history is optimal at this time. Upon arrival to [facility], afebrile, pulse 74, blood pressure 74/51, 100% saturation. He had a CT chest, head, cervical spine. He was given IV fluids. He had persistent hypotension, was started on
norepinephrine. Patient admitted to ICU for further management
.
PMH: Asthma, NICM, Afib sees cardiology at [facility] (Dr. Winston). Patient has refused medical care in the past
Past Medical History
Past Medical History: None (See above)
Past Surgical History: None (See above)
Social History
Tobacco: Non-smoker
Alcohol: Binge Drinker (none since 2023)
Drug: None
Personal:
Living: With Family
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
Family History
Family History: Other (Family history positive for prostate cancer. 2 children)
Allergies / Home Medications
Allergies
Allergy/AdvReac Type Severity Reaction Status Date / Time
No Known Allergies Allergy Verified 08/26/24 23:28
Home Medications
�Medication �Instructions �Recorded �Confirmed �Last Taken �Type
aspirin 81 mg capsule 81 mg PO DAILY 08/27/24 08/27/24 Unknown History
carvedilol 25 mg tablet 25 mg PO BID 08/27/24 08/27/24 Unknown History
furosemide 40 mg tablet (Lasix) 40 mg PO DAILY 08/27/24 08/27/24 Unknown History
magnesium 250 mg tablet 250 mg PO DAILY 08/27/24 08/27/24 Unknown History
multivitamin 1 tab PO DAILY 08/27/24 08/27/24 Unknown History
Review of Systems
-
Unable to Obtain full review of systems at this time due to: Acuity
All other systems: Negative unless noted
Vitals / Labs / Diagnostic Testing
Vital Signs
Temp Pulse Resp BP Pulse Ox
98.1 F 127 24 84/50 97
08/27/24 07:00 08/27/24 11:15 08/27/24 11:15 08/27/24 11:15 08/27/24 11:15
Lab Data
08/27/24 06:54
08/27/24 06:54
Laboratory Results
08/26/24
23:57
PT 26.3 H
INR 2.42
APTT 85.3 H
Microbiology
08/26/24 23:57 Nasal Swab Influenza Types A & B (WINTER) - Final
Negative for Influenza A & B, NAAT
Negative results must be combined with clinical observations
and patient history.
Nucleic Acid Amplification test (NAAT)performed on the
[employer] platform.
Diagnostic Testing:
Physical Exam
-
HEENT: Normocephalic and Other (Disheveled appearing)
Cardiovascular: Irregular Rhythm, Murmur (n) and Rub (n)
Respiratory: Wheeze (few), Rales (n), Rhonchi (few) and Non-Labored Respirations
GI: Soft, Non Distended (Obese) and Non Tender
Neurology: Awake, Alert, Oriented (Oriented to hospital), No Motor Deficits (Moving all extremities) and Other (Agitated)
Skin: Other (No clubbing, no cyanosis)
General: Other (Agitated)
Assessment
-
64-year-old male with history of atrial fibrillation, history of nonischemic cardiomyopathy follows cardiology at [facility], 100 pound weight loss over the past year, has not had a bowel movement for 3 weeks according to , found with mental
status changes, found down at least throughout the day. Upon arrival to [facility], found to be in acute renal failure, rhabdomyolysis, hypotensive. Imaging suggested old moderate size cortical stroke, metastatic lesions throughout the
sternum, ribs, spine, and significant adenopathy throughout the abdomen. Patient given IV fluids, IV antibiotics, required norepinephrine. Patient brought to ICU for further management.
Septic shock
Hypotension, suspect urinary source
Acute renal insufficiency, creatinine 5.0
Hematuria, 1 L post Baeza catheter placement
Rhabdomyolysis
Anemia
Thrombocytopenia, Coagulopathy
100 pound weight loss
Elevated alkaline phosphatase greater than 2400
Constipation, no bowel movement x 3 weeks
Extensive suspected metastatic disease per imaging
Thoracic spine, ribs, sternum, sacrum, left pubic bone
Acute endplate fractures of T7
Multiple subacute, acute rib fractures
Severe metastatic adenopathy in the pelvis, retroperitoneum
Conditions present prior to admission
History of atrial fibrillation
History of nonischemic cardiomyopathy, myocarditis 20 years ago
Follows cardiology at [facility], details unclear
Family history of leukemia (brother)
History of binge alcohol, none for last year
Plan/recommendations
Patient is critically ill with multiorgan system failure.
At unfortunately patient has had symptoms for at least few weeks including no bowel movement for 3 weeks.
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
He has lost 100 pounds over the last year
also describes multiple falls recently, difficulty urinating, dark urine
Moving forward
IV fluids with additional boluses as able
Continue norepinephrine
May require stress dose steroids but hold off for now
Acute renal failure with rhabdomyolysis, hematuria
1 L of bloody urine noted in the bladder post Baeza catheter placement
Suspect secondary to metastatic prostate cancer?
Significant pelvic and abdominal adenopathy noted
Nephrology has been consulted
EKG with atrial fibrillation, right bundle branch block
Patient also high risk for thromboembolic disease
Unfortunately, given gross hematuria, falls, acute rib fractures, not ideal candidate for anticoagulation
Check echocardiogram, assess RV/LV
Obtain cardiology records from [facility]
Agree with empiric antibiotics. Patient currently on Zosyn therapy
Patient also complaining of not feeling well, generalized pain. Suspect secondary to metastatic osseous disease
Dilaudid as needed for pain
DVT prophylaxis: Continue with subcutaneous heparin every 8 hours
GI prophylaxis: Add Protonix
Reviewed with critical care nursing, primary service
Given presentation and evidence of extensive metastatic disease, suspect prognosis is poor
Reviewed with over phone. plans to discuss with family members, children regarding CODE STATUS as patient has refused evaluation in the past
TCCT 45 min
--- NOTE | 2024-08-27 12:25 | CON.ONC ---
Impression
Impression
- Rhabdomyolysis
- AVERY
- blastic bone metastases
- prostate cancer with bladder obstruction, extensive pelvic, retroperitoneal adenopathy
- bilateral hydronephrosis
Plan
Plan
- imaging findings HIGHLY suspicious for metastatic prostate cancer with local extension/obstruction of bladder resulting in bilateral hydronephrosis, extensive LN involvement and extensive bone metastases. PSA pending.
- pt critically ill with hypotension, RVR on pressors with significant AVERY in setting of rhabdo, unclear if also underlying infection. ICU, nephrology following.
- unclear if AVERY related to rhabdo vs. element of obstructive nephropathy with bilateral hydro. placed consult to Urology as may require PCNs. Baeza was able to be placed.
- tissue for diagnosis confirmation not necessarily needed if PSA high with imaging findings however should be considered to rule out more aggressive rare histologies (ie small cell) and for molecular testing. This can be considered in-pt vs. outpt
as pt is likely going to seek tx in [place] where he is from.
- recommend starting Bicalutamide once pt more stable. Review with that he should establish an oncologist either here or in [place] [facility] after discharge to start ADT and would consider first line chemotherapy for this pt with extensive dz.
- will continue to follow.
Patient History
History of Present Illness
Nigel is a 64 yo M w/ hx of atrial fibrillation who was brought in by his after being found down, confused and too weak to stand. states he was in normal state of health when she left for work at am however in hindsight may have been
slightly confused. She states that over the past several months he has been having issues with new joint and leg pain. He is from [place] without [place] insurance. He was seeing chiropractor, painter spring for these symptoms without improvement. also
notes he has been having more urinary issues, constipation and recently did a 'colon cleanse' so she was concerned weakness could have been due to dehydration because he had diarrhea after cleanse. Labs on admission notable for hgb 9.3 g/dl, plts
120, Cr 5.0, t bili 1.6, AST 230, ALT normal ALP > 2400, CK 7255. He was hypotensive w/ afib RVR. He is receiving fluids, started on levophed and awaiting ICU bed. Pt is lethargic on exam, hx provided by . She notes his dad of esophageal
cancer in his 60-70s, mom had some form of cancer that involved bones however she is unsure what type. Pt did not follow with regularly however had labs in October with clarifier and she does not recall any LFT changes. He is never smoker,
former heavy ETOH use.
CT C/A/P showed multifocal blastic ossteous metastases involving spine, ribs with multiple rib fractures, T7 fracture, prostate cancer with bladder outlet obstruction, bladder dilation, moderate bilateral hydronephrosis, pelvic and retroperitoneal
adenopathy, moderate splenomegaly. non =specific RUL pulmonary nodules favoring infectious process.
Past-Medical/Surgical History
- atrial fibrillation
Patient Medication
�Medication �Instructions �Recorded �Confirmed �Last Taken �Type
aspirin 81 mg capsule 81 mg PO DAILY 08/27/24 08/27/24 Unknown History
carvedilol 25 mg tablet 25 mg PO BID 08/27/24 08/27/24 Unknown History
furosemide 40 mg tablet (Lasix) 40 mg PO DAILY 08/27/24 08/27/24 Unknown History
magnesium 250 mg tablet 250 mg PO DAILY 08/27/24 08/27/24 Unknown History
multivitamin 1 tab PO DAILY 08/27/24 08/27/24 Unknown History
Active Medications
Generic Name Dose Route Start Last Admin
Trade Name Freq PRN Reason Stop Dose Admin
Acetaminophen 650 mg 08/27/24 04:27
Acetaminophen 325 Mg Tablet PO 09/24/24 04:26
Q4HPRN PRN
mild pain/JOHNSON/temp> 100.4F
Hydromorphone HCl 0.5 mg 08/27/24 04:27
Hydromorphone 0.5 Mg/0.5 Ml Syringe IV 09/10/24 04:26
Q4HPRN PRN
severe pain
Norepinephrine Bitartrate 4 mg in 250 mls @ 0 mls/hr 08/27/24 07:15 08/27/24 07:45
Levophed IV 250 mls
PER PROTOCOL CASSI Administration
Protocol
Per Protocol
Sodium Chloride 1,000 mls @ 100 mls/hr 08/27/24 08:45 08/27/24 09:48
Nss IV Not Given
.Q10H CASSI
Piperacillin Sod/Tazobactam Sod 2.25 grams in 50 mls @ 100 mls/hr 08/27/24 12:00
Zosyn IV
Q8H CASSI
Ondansetron HCl 4 mg 08/27/24 04:27
Ondansetron 4 Mg/2 Ml Vial IV 09/24/24 04:26
Q6HPRN PRN
nausea and vomiting
Polyethylene Glycol 17 grams 08/27/24 04:27
Polyethylene Glycol Powder 17 Grams Packet PO 09/24/24 04:26
DAILYPRN PRN
constipation
Sodium Chloride 0 flush 08/27/24 05:00
Sodium Chloride 0.9% (Flush) Syringe IV 09/24/24 04:59
PER PROTOCOL CASSI
Review of Systems
-
Unable to obtain full review of systems at this time due to: Acuity
History Source: Family
Constitutional: Reports Weight Loss; Denies Fever
Respiratory: Denies Cough
Cardiac: Denies Chest Pain
GI: Reports Diarrhea and Constipated; Denies Abdominal Pain, Bloody Stools or Black Stools
: Reports Frequency and Difficulty Voiding
Musculoskeletal: Reports Joint Pain and Muscle Pain
Neuro: Reports Weakness; Denies Headache or Lightheadedness
Physical Exam
-
General: Well Nourished, No Apparent Distress and Other (lethargic, ill appearing )
HEENT: Negative Jaundice
Cardiology: Irregular Rate/Rhythm; Negative No Murmur
Pulmonary: Clear
GI: Soft; Negative Distended
Musculoskeletal: No Edema
Extremities: Negative Edema
Neurology: Non Focal and No Lateralizing Symptoms
Labs
Lab Results
WBC 5.2 10^3/uL (4.8-10.8) 08/27/24 06:54
RBC 3.01 10^6/uL (4.70-6.10) L 08/27/24 06:54
Hgb 9.3 g/dL (13.0-18.0) L 08/27/24 06:54
Hct 27.7 % (39.0-52.0) L 08/27/24 06:54
MCV 92.0 fL (80.0-94.0) 08/27/24 06:54
MCH 30.9 pg (27.0-31.0) 08/27/24 06:54
MCHC 33.6 g/dL (33.0-37.0) 08/27/24 06:54
RDW 13.9 % (11.5-14.5) 08/27/24 06:54
Plt Count 120 10^3/uL (130-400) L 08/27/24 06:54
MPV 9.1 fL (7.4-10.4) 08/27/24 06:54
Abs Immat Gran (auto) 0.1 10^3/uL (0-0.05) H 08/26/24 23:35
Absolute Neuts (auto) 5.1 10^3/uL (1.4-6.5) 08/26/24 23:35
Absolute Lymphs (auto) 1.4 10^3/uL (1.2-3.4) 08/26/24 23:35
Absolute Monos (auto) 0.5 10^3/uL (0.1-0.6) 08/26/24 23:35
Absolute Eos (auto) 0.0 10^3/uL (0-0.7) 08/26/24 23:35
Absolute Basos (auto) 0.0 10^3/uL (0-0.2) 08/26/24 23:35
Immature Gran % 0.8 % (0-0.5) H 08/26/24 23:35
Neutrophils % 72.2 % (42.2-75.2) 08/26/24 23:35
Lymphocytes % 19.8 % (20.5-51.1) L 08/26/24 23:35
Monocytes % 6.8 % (1.7-9.3) 08/26/24 23:35
Eosinophils % 0.1 % (0-6) 08/26/24 23:35
Basophils % 0.3 % (0-2) 08/26/24 23:35
Creatinine 5.0 mg/dL (0.7-1.3) H* 08/27/24 06:54
Vital Signs
Vital Signs
Temp Pulse Resp BP Pulse Ox
102.1 F H 127 24 84/50 97
08/27/24 12:24 08/27/24 11:15 08/27/24 11:15 08/27/24 11:15 08/27/24 11:15
[2024-08-27] MEDS: TYLENOL PO (12:39)
[2024-08-27 13:24] LABS: B.E. -0.7 mmol/L; HCO3 21.8 mmol/L (21-28); PCO2 28 mmHg (35-48); PO2 94 mmHg (83-108)
--- NOTE | 2024-08-27 13:37 | W.PN.HOSP.TC ---
Today's Communication/Plan
-
Pressors
Hernandez cath
IVF
ICU
Ur cx
empiric Zosyn
Assessment / Plan
Assessment / Plan
Septic Shock
not responding to low dose Levophed. Contacted Dr. Ulrich and will change from IMU to ICU. Pt is critically ill. Needs fluids and Pressors
concern for urinary outlet obstruction from Prostate Cancer. Order hernandez catheter and 1000 cc dark urine drained. Concern for urinary tract infection as source of sepsis
Zosyn started empirically, await Gm to decide if Gm + coverage should be added
Probable UTI
1. AVERY/Rhabdo - suspect partly due to rhabdomyolysis but unsure given duration of being down and degree of cpk elevatin and AVERY there is possibly ongoing CKD whose etiology is unclear. Patient has h/o CHF but appears euvolemic today. Not currently
on diuretics and has borderline low BPs recently. No hydronephrosis or bladder retention obvious on CT scan.
- admit to imu
- continue with IV fluids NS
- monitor strict i/os
- trend cpk
- monitor for signs of overload and may initiate diuretics if SBP > 110
- phos level, urine protein/cr,
- nephrology consultation
Creat 4.4-->5.0
2.AFIB RVR - known afib, was to be on apixaban but could not afford. On coreg 25 bid and aspirin. Rates in the 110s
- rehydration
- hold ac, restart apixaban pending decision on biopsy
- hold on Beta Blockers due to hypotension
- diltiazem gtt if needed for rate control
- cardiology consult
3. Elevated T bili and alkphos - liver/billiary mets versus non liver elevation of alkphos - most likely bone related
- check ggt
-check direct bili
- RUQ u/s (non-con CT)
- consider abdominal mri w/o contrast
4. Metastatic dz - Suspect elevated alkphos is due to osseus lesions from Prostatic metastatic disease. No clear primary but concern for lung, prostate, kidney, skin
- oncology consult
- check psa, cea, ca 19-9, afp
- additional imaging somewhat limited but lymph node or lesions may be biopsied
- patient prefers to complete w/u in [place] if possible
- PT evaluation
reviewed result of CT scan with (PORSCHE Chen), out of room
Oncology has been consulted, but first order of business will be to stabilize pt
CHEST:
1. MULTIFOCAL BLASTIC OSSEOUS METASTATIC DISEASE involving the thoracic spine, ribs, and sternum.
2. Acute superior and inferior endplate fractures of T7 (either pathologic or traumatic in etiology).
3. Multiple acute and subacute right rib fractures (either pathologic or traumatic in etiology).
4. Moderate cardiomegaly.
5. Multiple small subcentimeter centrilobular pulmonary nodules in the right upper lobe which are most likely secondary to peripheral endobronchial infection. Pulmonary metastases are an alternative diagnostic possibility.
6. Minimal bilateral pleural effusions.
ABDOMEN and PELVIS:
1. SEVERE PROSTATE CANCER with extracapsular extension of malignancy and URINARY BLADDER OUTLET OBSTRUCTION.
2. Severely distended urinary bladder.
3. Moderate bilateral hydronephrosis.
4. VERY EXTENSIVE BLASTIC OSSEOUS METASTATIC DISEASE in the lumbar spine, pelvic bones, and proximal femurs.
5. Multiple pathologic fractures in the lower lumbar spine.
6. Extra osseous extension of malignancy from the sacrum and left pubic bone into the adjacent soft tissues.
7. SEVERE METASTATIC LYMPHADENOPATHY in the pelvis.
8. Moderate metastatic lymphadenopathy in the retroperitoneum.
9. Large amount of fecal material in the proximal colon.
10. Moderate splenomegaly.
DVT PPX - heparin sq
on admission, INR was 2.42/PTT 85.3
most likely related to septic shock, will place Heparin on hold, await further input from Heme/Onc
Total Critical Care Time 60 minutes. I was immediately available to the patient and staff. I personally examined, reviewed labs, diagnostic images/reports, interpretations, treatment plans, discussed patient care with other providers and family
or caregivers (if patient is unable to make decisions), entered orders as appropriate and documented the medical record.
Very complex situation
Code status - full code
Anticipated Discharge: > 48 hours
Subjective/Interval History
-
Date of Service: August 27, 2024
Pt appears ill, poorly responsive, very weak, hypotensive
Objective Data
-
Labs:
Laboratory Results
08/26/24 08/27/24 08/27/24
23:34 06:54 13:12
WBC 5.2
Hgb 9.3 L
Hct 27.7 L
Plt Count 120 L
PT
INR
APTT
HCO3 21.8
Sodium 134 L
Potassium 4.4
Chloride 96 L
Carbon Dioxide 28
BUN 69 H
Creatinine 5.0 H*
Glucose 123 H
Calcium 7.6 L
Total Bilirubin 1.6 H
AST 360 H
ALT 29
Alkaline Phosphatase > 2400 H > 2400 H
08/27/24
13:31
WBC
Hgb
Hct
Plt Count
PT Pending
INR Pending
APTT Pending
HCO3
Sodium
Potassium
Chloride
Carbon Dioxide
BUN
Creatinine
Glucose
Calcium
Total Bilirubin
AST
ALT
Alkaline Phosphatase
Vital Signs:
Vital Signs
Temp Pulse Resp BP Pulse Ox
102.1 F H 127 24 84/50 97
08/27/24 12:24 08/27/24 11:15 08/27/24 11:15 08/27/24 11:15 08/27/24 11:15
I&O
08/26/24 08/27/24 08/28/24
06:59 06:59 06:59
Output Total 1000 / 1000
Balance -1000 / -1000
Review of Systems
-
History Source: Patient and Family (reviewed with , April MORRELL, both in and out of room)
Constitutional: Reports Fever (98.1-->102.1)
EENT: Reports No Symptoms Reported
Respiratory: Reports No Symptoms
Cardiac: Denies Chest Pain
Abdomen/GI: Reports Constipated (no BM in 3 weeks)
Genitourinary: Reports Other (was not urinating, ordered hernandez)
Physical Exam
-
General: Well Developed, Well Nourished and Other (ill appearing, hypotensive/shock)
HEENT: Normocephalic and Atraumatic
Respiratory: Clear to Auscultation (on shallow respirations)
Cardiac: S1/S2 and Irregular Rhythm
GI: Soft, Nontender and Nondistended
Musculoskeletal: No Clubbing, No Cyanosis and No Edema
Skin: Warm and Dry
[2024-08-27] MEDS: OFIRMEV 100 IV (13:43)
[2024-08-27] MEDS: ZOSYN 50 IV ×2 (13:46→19:41)
--- NOTE | 2024-08-27 13:48 | CON.CAR ---
Consultation
Consultation Request
Date/Time Consultation Requested: August 27, 2024
Date/Time Consultation Performed: August 27, 2024
Requesting Provider: Hospitalist
Performing Provider: Dr Wilbert vela
Reason for Consultation: Atrial fibrillation with rapid ventricular rates, hypotension
Medical History
-
Chief Complaint: Profound weakness
History of Present Illness:
Patient woke up in the morning and had breakfast and then just felt progressively weaker where he laid on the ground and did not want to get up. His found him later in the day around 9 PM on the ground. He denied having any particular pain.
He was unable to get up on his own due to weakness.
Patient was brought to [facility] emergency department by his who found him on the floor.
In the emergency department he was found to be febrile with temperature of 102.1 hypotensive with blood pressure of 87/58 and in atrial fibrillation with rapid ventricular rate of 120 bpm.
His provides he has medical history of atrial fibrillation, cardiomyopathy felt to be noninfarct related, heart failure with recovered/improved ejection fraction and progressive ambulatory dysfunction as well as progressive now profound
weakness starting approximately 10 months ago. Along with this she has had reduced appetite and reduced oral intake.
His tells me that for many years he receives much of his care in [place], he is a [place] citizen. She tells me that the diagnosis of cardiomyopathy/congestive heart failure was initially made in [place] approximately 15 years ago. She notes
that with medical therapy as well as a reduction in his binge drinking his ejection fraction ultimately improved. She also tells me that over the years his control of alcohol abuse has waxed and waned. The diagnosis of atrial fibrillation was also
made and [place]. Locally he has been receiving his cardiology care at [facility] with Dr. Winston but he has been noncompliant with follow-up and noncompliant with medical therapy.
He is now admitted to the ICU with septic shock, acute renal failure and rhabdomyolysis.
He is also found to very likely have widely metastatic prostate cancer.
Additionally he is felt to have decompensated congestive heart failure.
Cardiology has been consulted regarding atrial fibrillation as well as heart failure.
He is in renal failure with BUN and creatinine of 69 and 5
Creatinine kinase is 7255 and alkaline phosphatase is greater than 2400 with AST of 360 and ALT of 29
proBNP is elevated at 9920
He is anemic with hemoglobin of 9.3 and thrombocytopenic with platelet count of 120,000
Presenting electrocardiogram August 26, 2024 find atrial fibrillation with ventricular rate of 105 bpm, right bundle branch block
Second EKG August 27, 2024 finds atrial fibrillation ventricular rate of 127 bpm right bundle branch block and some nonspecific T wave abnormalities laterally
Chest x-ray on admission finds mild cardiomegaly with no vascular congestion or pulmonary edema. No pneumonia
Cervical spine CT finds multifocal blastic osseous metastatic disease
Chest abdomen and pelvis CT finds multifocal blastic osseous metastatic disease involving the thoracic spine, ribs and sternum. Acute superior and inferior endplate fractures of T7 (either pathologic or traumatic in etiology).
Multiple acute and subacute right rib fractures (either pathologic or traumatic in etiology). Multiple small subcentimeter centrilobular pulmonary nodules in the right upper lobe which are most likely secondary to peripheral
endobronchial infection. Pulmonary metastases are an alternative diagnostic possibility.
CT scan of the head finds no acute intracranial hemorrhage, moderate-sized chronic transcortical infarct in the lateral right frontal lobe and right insular cortex, moderate bilateral frontal lobe volume loss
Social History
Tobacco: Non-Smoker
Alcohol: Binge Drinker (None since 2023)
Drug: None
Personal:
Living: With Family
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
Family History
Family History: Reviewed & Not Pertinent
Allergies / Home Medications
Allergy/AdvReac Type Severity Reaction Status Date / Time
No Known Allergies Allergy Verified 08/26/24 23:28
�Medication �Instructions �Recorded �Confirmed �Type
aspirin 81 mg capsule 81 mg PO DAILY 08/27/24 08/27/24 History
carvedilol 25 mg tablet 25 mg PO BID 08/27/24 08/27/24 History
furosemide 40 mg tablet (Lasix) 40 mg PO DAILY 08/27/24 08/27/24 History
magnesium 250 mg tablet 250 mg PO DAILY 08/27/24 08/27/24 History
multivitamin 1 tab PO DAILY 08/27/24 08/27/24 History
Review of Systems
-
Unable to obtain full review of systems at this time due to: Acuity
Physical Exam
Vital Signs
Temp Pulse Resp BP Pulse Ox
102.1 F H 127 24 84/50 97
08/27/24 12:24 08/27/24 11:15 08/27/24 11:15 08/27/24 11:15 08/27/24 11:15
Lab Results
08/27/24 06:54
08/27/24 06:54
Shb-S-Xjvuibkeivv Pept 9920 pg/ml 08/27/24 06:54
Physical Exam
General: Well Developed, No Apparent Distress, Comfortable and Other (He is somnolent but arousable.)
HEENT: Normocephalic, Anicteric and Moist Mucous Membranes
Respiratory: Clear (Clear anteriorly bilaterally) and Other (He has clear breath sounds bilaterally)
Cardiac: S1/S2, Irregular Rhythm (Tachycardic) and Murmur (Grade 1/6 basal systolic ejection murmur and 1/6 apical holosystolic murmur, PMI laterally and inferiorly displaced, no rubs)
Breast: Deferred by me
GI: Soft and Non Distended
Rectal: Deferred by Provider
Musculoskeletal: No Clubbing, No Cyanosis and Edema (There is +2 bilateral lower extremity edema)
Skin: Warm and Dry
Neuro: Other (Somnolent but is arousable to some degree, cannot hold a full conversation)
Impression / Plan
-
Impression:
- Septic shock
- Rhabdomyolysis
- AVERY
- Atrial fibrillation with rapid ventricular rate ( describes permanent atrial fibrillation)
- History of cardiomyopathy/heart failure with recovered ejection fraction
- Anemia
- Thrombocytopenia
- blastic bone metastases
- prostate cancer with bladder obstruction, extensive pelvic, retroperitoneal adenopathy
- bilateral hydronephrosis
He is critically ill
Recommendations:
Hemodynamic support to include IV fluid hydration, IV pressors and also antibiotics for suspected sepsis
I do not think he is significantly intravascularly volume overloaded. He likely is intravascular volume depleted and therefore no need for diuresis at present.
He has permanent atrial fibrillation and while rates are mildly rapid, it is appropriate/physiologic for his current state. At present no attempts to control ventricular rate, but as his blood pressure improves if he still tachycardic we could
consider rate control of atrial fibrillation.
Ideally he will be on anticoagulation for atrial fibrillation related thromboembolic risk reduction but he is at high bleeding risk at present. He has been having epistaxis, he is thrombocytopenic, he has multiple metastatic lesions.
Continue current care and reassess safety for anticoagulation, IV heparin.
Currently he is too hypotensive to consider guideline directed medical therapy for heart failure with reduced ejection fraction.
Will check echocardiogram in the morning
He remains critically ill.
I met with and discussed his case with his . All of her questions have been answered.
Total critical care time today is 60 minutes
Data Reviewed
-
EKG: Tracing Personally Visualized and interpreted and Report Reviewed by me
Radiology: Image Personally Visualized and interpreted and Report Reviewed by me
CT Scan: Image Personally Visualized and interpreted and Report Reviewed by me
Labs: Labs Reviewed by me and Discussed with Family
[2024-08-27 13:51] LABS: INR 2.26; PT 25.1 Sec (11.4-14.6)
[2024-08-27 13:53] LABS: APTT 67.2 Sec (23.4-35.0)
[2024-08-27] MEDS: PITRESSIN 100 IV ×2 (14:29→20:31)
[2024-08-27 15:24] LABS: % Basophils 0.2 % (0-2); % Eosinophils 0.1 % (0-6); % Immature Granulocytes 0.7 % (0-0.5); % Lymphocytes 17.1 % (20.5-51.1); % Monocytes 12.5 % (1.7-9.3); % Neutrophils 69.4 % (42.2-75.2); Absolute Immature Granulocytes 0.1 10^3/uL (0-0.05); Absolute Lymphocytes 1.4 10^3/uL (1.2-3.4); Absolute Neutrophils 5.6 10^3/uL (1.4-6.5); Hematocrit 28.4 % (39.0-52.0); Hemoglobin 9.6 g/dL (13.0-18.0); Mean Corp Hgb Conc. 33.8 g/dL (33.0-37.0); Mean Corpuscular Hgb 30.7 pg (27.0-31.0); Mean Corpuscular Volume 90.7 fL (80.0-94.0); Mean Platelet Volume 9.3 fL (7.4-10.4); Nucleated Red Blood Cells % 0 % (-); Platelet Count 167 10^3/uL (130-400); Red Blood Cell Count 3.13 10^6/uL (4.70-6.10); Red Cell Dist. Width 14.1 % (11.5-14.5); White Blood Cell Count 8.1 10^3/uL (4.8-10.8)
[2024-08-27 15:40] LABS: Blood Urea Nitrogen 72 mg/dl (9-20); Calcium 7.2 mg/dl (8.4-10.2); Carbon Dioxide 24 mmol/L (22-30); Chloride 97 mmol/L (98-107); Estimated Creatinine Clearance 22 ml/min; Glucose 121 mg/dl (70-99); Potassium 4.4 mmol/L (3.5-5.1); Sodium 129 mmol/L (135-145); eGFR 15.46
[2024-08-27] MEDS: LR 1000 IV ×2 (15:56→23:26)
--- NOTE | 2024-08-27 16:04 | PTCARENOTE ---
patient with picc order for med purposes/pva; insisted on midline instead of picc at this time. midline place, primary RN aware, will cont to assess for picc needs
--- NOTE | 2024-08-27 17:57 | PTCARENOTE ---
12:30 New admission from ED. Admitting DX : Hypotension, Prostal Cancer with metastasis . Patient transfer via psychology technician on continue business support liaison. Arrived with Levophed at 12mcg and NSS at 150/hr infusing via RT AC # 18 Line + blood return. Left
Ac peripheral line capped flushed +blood return. Indwelling Hernandez inserted in ER draining dark red blood
pt drowsy, AAO x3. b/L UE and LE pain. Reports that pain started before he sustain fall
Afib 107 occasional 130's BP via left upper arm: SBP 73-80;
+2 edema to b/l LE Pedal pulses weak
Abdomen soft round pt incontinent of bowel
Indwelling hernandez + Hematuria with no blood clots Hernandez care done Output at this time 250cc
patient's at bedside. Dr. Ulrich at bedside. very detail update to pt and his given at the bedside. Dr. Ulrich explained that pt hemodynamically untestable, he explained that medications such as Levophed and Vasopressin are very potent
to veins. Significants to insertion of PICC line explained. 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 I don't want my to get PICC line because I know it's going to his heart and he has a lot of heart issues as
it is'. Dr. Ulrich again explained the important for pt to get picc line until he will be hemodynamic stable. confirmed an understanding of information that was provided to her by physial. After all, refused PICC line and ask for mid-line to
be inserted instead.
RT UE Mid line inserted . Levophed at 18mcg and Vasopressin at 0.04 . LR 1L bolus given
At this time pt more awake Levophed adjusted for SBP >90 call mcfarlane within reach
--- NOTE | 2024-08-27 20:00 | PTCARENOTE ---
Received pt resting in bed, AAOx2, thought it was year 1953. Drowsy but easily arousable. LEs weak, barely able to wiggle toes, unable to move joints. reports this has been ongoing/progressive weakness. Sensation in RLE < LLE. No complaints of
pain except with movement. Afib on tele, HR 80-90s. On levo and vaso to maintain SBP>90. Up titrating levo - see worklist. Afebrile. + DP/PTs. +2 LE edema, +1 UE. On RA, spo2 97%. Lungs dim throughout. + bowel sounds. Round abd. Poor appetite.
Pureed diet. Baeza draining bloody urine. No clots noted. R midline with vaso and levo infusing. R AC with NSS @ 150ml/hr. Turning q2.
Earlier in the day, pt. not agreeable to PICC line but now she is willing to have a PICC placed. VAT team contacted as pressor needs continue to increase. VAT RN stated she will put him on her list.
--- NOTE | 2024-08-27 21:41 | PTCARENOTE ---
Pt. more confused, slow to answer what his name is and unable to tell his , even though an hour ago he was able to without difficulty. SOLE SEAMER notified. No new orders at this time. Continue to monitor.
1L LR bolus ordered for hypotension. VAT team at bedside placing PICC.
[2024-08-28] VITALS (55 sets, daily range): BP systolic 69–120; BP diastolic 50–92; PULSE 98; BMI 33.0
--- NOTE | 2024-08-28 00:42 | PTCARENOTE ---
R DL PICC ok to use per order. New tubing hung for pressors and IVF. Continues on levo and vaso. Urine appears more bloody, no clots- PAINT TECHNICIAN notified. Will monitor. Pt. without complaints but just wishes to rest. Remains easily arousable.
[2024-08-28] MEDS: PITRESSIN 100 IV ×3 (02:53→19:31)
[2024-08-28] MEDS: DILAUDID 0.5 MG IV (04:05)
[2024-08-28] MEDS: LEVOPHED 258 MG IV ×3 (04:08→19:26)
--- NOTE | 2024-08-28 04:15 | PTCARENOTE ---
Pt. reassessed. Medicated for pain, specifically in his back, with PRN dilaudid dose. Attempting to wean levophed. Levophed switched to double concentrated. Assessment otherwise unchanged
[2024-08-28] MEDS: ZOSYN 50 IV ×4 (04:20→23:29)
[2024-08-28 04:25] LABS: INR 1.85; PT 21.5 Sec (11.4-14.6)
[2024-08-28 04:26] LABS: APTT 61.3 Sec (23.4-35.0); Fibrinogen 623 MG/DL (199-459)
[2024-08-28 04:42] LABS: D-Dimer > 20.00 ug/mlFEU (0.00-0.50)
[2024-08-28 04:51] LABS: ALT (SGPT) 28 U/L (0-50); AST (SGOT) 238 U/L (17-59); Albumin 2.2 g/dl (3.5-5.0); Blood Urea Nitrogen 63 mg/dl (9-20); Carbon Dioxide 23 mmol/L (22-30); Chloride 98 mmol/L (98-107); Direct Bilirubin 0.9 mg/dl (0.0-0.4); Estimated Creatinine Clearance 38 ml/min; Glucose 167 mg/dl (70-99); Sodium 129 mmol/L (135-145); Total Bilirubin 1.6 mg/dl (0.2-1.3); Total Protein 4.3 g/dl (6.3-8.2); eGFR 29.39
[2024-08-28 05:00] LABS: Hematocrit 26.2 % (39.0-52.0); Hemoglobin 8.9 g/dL (13.0-18.0); Mean Corpuscular Hgb 30.9 pg (27.0-31.0); Mean Platelet Volume 9.5 fL (7.4-10.4); Platelet Count 174 10^3/uL (130-400); Red Blood Cell Count 2.88 10^6/uL (4.70-6.10); Red Cell Dist. Width 13.8 % (11.5-14.5); White Blood Cell Count 8.2 10^3/uL (4.8-10.8)
[2024-08-28 05:03] LABS: Alkaline Phosphatase > 2400 U/L (38-126)
[2024-08-28] MEDS: NSS 1000 IV ×2 (06:23→16:54)
--- NOTE | 2024-08-28 08:00 | PTCARENOTE ---
Received pt awake and alert.Speech is mostly appropriate.Occasionally forgets his month.Denies pain.+5/5 movement bl upper extremities.0/5 movement bl lower extremities with decreased sensation noted.A Fib noted.Right PICC intact with
Vasopressin and Levophed gtts.Decreased breath sounds throughout.POX 94% on RA.Appetite poor.No BM.Baeza draining red bloody urine with clots noted.Skin integrity as documented.Pt's children at bedside.Plan of care discussed.
[2024-08-28 08:29] LABS: % Basophils 0.1 % (0-2); % Immature Granulocytes 0.7 % (0-0.5); % Lymphocytes 18.9 % (20.5-51.1); % Monocytes 11.1 % (1.7-9.3); % Neutrophils 69.2 % (42.2-75.2); Absolute Immature Granulocytes 0.1 10^3/uL (0-0.05); Absolute Lymphocytes 1.6 10^3/uL (1.2-3.4); Absolute Monocytes 0.9 10^3/uL (0.1-0.6); Absolute Neutrophils 5.7 10^3/uL (1.4-6.5); Nucleated Red Blood Cells % 0 % (-)
--- NOTE | 2024-08-28 08:42 | W.PN.NEPH.PH ---
Today's Communication / Plan
-
No dialysis required
Maintain IV fluids but will decrease rate to 100cc/hr
Can utilize IV Lasix as needed if I's and O's balance becomes too significantly positive due to history of congestive heart
Follow CPK levels
Maintain MAP greater than 65 with pressor support
Renally dosed Zosyn
Assessment/Plan
-
IMP:
AVERY
Bilat hydronephrosis with distended bladder-ALSTON
Hypotension
Rhabdomyolysis
AFIB RVR
Metastatic dz - likely prostate
Significantly elevated ALP likely from bone metastases
Anemia
Hyponatremia
Plan:
A/w found down
AVERY-severe with RHabdo and obst uropathy-bilat hydro on CT, consulted
Creatinine down to 2.4 BUN 63 nonoliguric with urine output greater than 1 L
Maintain hernandez, check urine studies: Urine protein to creatinine ratio 200 mg
adjusted IVF(s) however caution with h/o CHF, BNP is high
trend CK-increasing trend : ~7K yesterday, none recorded today
hypotension-pressors to keep MAP>65
Hyponatremia stable serum sodium 129
no emergent indication of HD
avoid nephrotoxins
d/w pt and sons at bedside
d/w primary
Patient critically ill requiring 2 pressor support in setting of acute renal failure
Total Time Spent with Patient (in minutes): 34 minutes critical care time spent with patient
-
-
Date of Service: August 28, 2024
CC / HPI / ROS
-
Chief Complaint:
AVERY
History of Present Illness:
Creatinine improved to 2.4
Hemodynamically labile on dual pressor support
Remains on Zosyn
Review of Systems:
Nonoliguric via Hernandez
Noted fevers over past 24 hours
Labs
-
Labs:
WBC 8.2 10^3/uL (4.8-10.8) 08/28/24 03:57
RBC 2.88 10^6/uL (4.70-6.10) L 08/28/24 03:57
Hgb 8.9 g/dL (13.0-18.0) L 08/28/24 03:57
Hct 26.2 % (39.0-52.0) L 08/28/24 03:57
Plt Count 174 10^3/uL (130-400) 08/28/24 03:57
Sodium 129 mmol/L (135-145) L 08/28/24 03:57
Potassium 4.0 mmol/L (3.5-5.1) 08/28/24 03:57
Chloride 98 mmol/L (98-107) 08/28/24 03:57
Carbon Dioxide 23 mmol/L (22-30) 08/28/24 03:57
BUN 63 mg/dl (9-20) H 08/28/24 03:57
Creatinine 2.4 mg/dL (0.7-1.3) H 08/28/24 03:57
eGFR 29.39 08/28/24 03:57
Glucose 167 mg/dl (70-99) H 08/28/24 03:57
Calcium 7.0 mg/dl (8.4-10.2) L 08/28/24 03:57
Phosphorus 3.8 mg/dl (2.5-4.5) 08/27/24 06:54
Abw-G-Chpihvngbec Pept 9920 pg/ml 08/27/24 06:54
Albumin 2.2 g/dl (3.5-5.0) L 08/28/24 03:57
Physical Exam
-
Vital Signs:
Vital Signs
Temp Pulse Resp BP Pulse Ox
98.0 F 112 16 92/53 96
08/28/24 04:25 08/28/24 07:00 08/28/24 07:00 08/28/24 07:00 08/28/24 07:00
Cardiovascular:: Irregular rate and rhythm
Respiratory:: Bilateral: CTA
Lung Excursion:: Normal
Abdomen:: Nontender and Soft
Bowel Sounds:: Decreased
Extremity Edema:: None: Bilateral:
Hernandez Catheter: Yes
--- NOTE | 2024-08-28 08:59 | CONS.URO ---
Medical History
History of Present Illness
Dr Hamilton's admission note excerpt: '64-year-old with past medical history significant for atrial fibrillation, nonischemic cardiomyopathy, congestive heart failure with recovered EF, presenting to the emergency department after being found on
the floor by spouse in the setting of approximately 10 months history of progressive ambulatory difficulties and worsening weakness.'
Lab assessment found him to be in ARF.
CT demonstrated a massively distended urinary with bilateral hydroureteronephrosis --> Baeza was placed
Patient reports that he has not been seeing a PCP and has never seen an urologist.
Past Medical History
Past Medical History: Other (Atrial fibrillation and CHF/nonischemic cardiomyopathy)
Social History
Personal:
Living: With Family
Allergies/Home Medications
Allergies
Allergy/AdvReac Type Severity Reaction Status Date / Time
No Known Allergies Allergy Verified 08/26/24 23:28
Home Medications
�Medication �Instructions �Recorded �Confirmed �Type
aspirin 81 mg capsule 81 mg PO DAILY 08/27/24 08/27/24 History
carvedilol 25 mg tablet 25 mg PO BID 08/27/24 08/27/24 History
furosemide 40 mg tablet (Lasix) 40 mg PO DAILY 08/27/24 08/27/24 History
magnesium 250 mg tablet 250 mg PO DAILY 08/27/24 08/27/24 History
multivitamin 1 tab PO DAILY 08/27/24 08/27/24 History
Physical Exam
Vital Signs
Vital Signs
Temp Pulse Resp BP Pulse Ox
100.3 F 112 16 92/53 96
08/28/24 07:15 08/28/24 07:00 08/28/24 07:00 08/28/24 07:00 08/28/24 07:00
Lab / Testing Results
Laboratory Results
08/28/24 03:57
08/28/24 03:57
Physical Exam
adult male asleep upon entering room
General: No Apparent Distress
Genito-urinary: Baeza Catheter
Assessment / Plan
-
suspected metastatic prostate cancer causing urinary retention/obstructive nephropathy/AVERY
PSA pending
Rec: keep Baeza
med tx of prostate cancer per Med Onc
will recommend TURP later during month after stabilization of acute issues
Data Reviewed
-
CT Scan: Image personally visualized and interpreted
Lab Data: Labs Reviewed
--- NOTE | 2024-08-28 09:24 | PTOTSP ---
Dysphagia Evaluation
No signs of oral/pharyngeal dysphagia suspected based on clinical bedside swallowing evaluation.
Recommend:
1. Regular, Thin Liquids
2. Medications - as best tolerated
3. Strategies: upright as close to 90 degrees as tolerated, small sips/bites slow rate
No further dysphagia tx f/u warranted at this time. Please reconsult as appropriate.
[2024-08-28] MEDS: NSS IV (10:30)
--- NOTE | 2024-08-28 10:54 | W.PN.CARDCBS ---
Today's Communication / Plan
-
Await echocardiogram
Wean pressors as tolerated
Eventual resumption of anticoagulation and carvedilol for rate control
Impression / Plan
-
Impression:
- Septic shock
- Rhabdomyolysis
- AVERY
- Atrial fibrillation with rapid ventricular rate ( describes permanent atrial fibrillation)
- History of cardiomyopathy/heart failure with recovered ejection fraction
- Anemia
- Thrombocytopenia
- blastic bone metastases
- prostate cancer with bladder obstruction, extensive pelvic, retroperitoneal adenopathy
- bilateral hydronephrosis
Plan:
Despite what is clinical sepsis with shock and mild rhabdomyolysis in the setting of newly diagnosed widely metastatic prostate cancer and bladder outlet obstruction, he is considerably improved by report.
Cultures to date are negative, he is on broad-spectrum antibiotics and in the last.
He has gross hematuria following Baeza placement. Will continue to hold anticoagulation for now. Eventual resumption of Eliquis.
Ventricular response to atrial fibrillation is still somewhat rapid but not dramatically so and best option is continued observation without calcium blockers, beta-blockers, amiodarone, digoxin etc. Suspect that as pressors are weaned we will be
able to resume carvedilol.
He will begin therapy for presumed prostate cancer.
Await echocardiogram.
He is critically ill
Progress Note - Pharmacology Teacher
Subjective
Date of Service: August 28, 2024:
64-year-old man admitted with weakness and rhabdomyolysis after laying on the ground, CPK 7450, presented to the emergency department with fever and hypotension with permanent atrial fibrillation and rapid ventricular response. He had evidence of
bladder outlet obstruction, Baeza placed for 900 mL, initial creatinine as high as 5 and 24 hours later following Baeza placement 2.4, patient with suspected widely metastatic prostate cancer and bony lesions, D-dimer greater than 20, sodium 129,
alkaline phosphatase greater than 2400 with AST 238, proBNP 9920
Overall he feels much better
PMH: Cardiomyopathy/CHF, known atrial fibrillation, unclear whether persistent or paroxysmal, noncompliance, receives care in [place]
Current meds: Grgeory-Synephrine IV, Zosyn, vasopressin, norepinephrine
92/53, pulse 112, resp rate 16, afebrile, no distress, April at bedside, head neck exam unremarkable, irregular rate and rhythm, no obvious murmurs, JVD okay, anasarca from hips down, abdomen distended, pulses palpable
Chest x-ray with cardiomegaly PICC line
EKG yesterday atrial fibrillation, right bundle branch block, ST and T changes
Echo: Pending
Hemoglobin 8.9, White count 8.2, platelets 174, ABG 7.5///, sodium 129, potassium 4, BUN and creatinine 63 and 2.4
Objective
Labs:
08/28/24 03:57
08/28/24 03:57
Labs
Hgb 8.9 g/dL (13.0-18.0) L 08/28/24 03:57
Hct 26.2 % (39.0-52.0) L 08/28/24 03:57
Plt Count 174 10^3/uL (130-400) 08/28/24 03:57
PT 21.5 Sec (11.4-14.6) H 08/28/24 03:57
INR 1.85 08/28/24 03:57
APTT 61.3 Sec (23.4-35.0) H 08/28/24 03:57
Sodium 129 mmol/L (135-145) L 08/28/24 03:57
Potassium 4.0 mmol/L (3.5-5.1) 08/28/24 03:57
BUN 63 mg/dl (9-20) H 08/28/24 03:57
Creatinine 2.4 mg/dL (0.7-1.3) H 08/28/24 03:57
Glucose 167 mg/dl (70-99) H 08/28/24 03:57
Vital Signs and I&O:
Vital Signs
Temp Pulse Resp BP Pulse Ox
37.9 C 112 16 92/53 96
08/28/24 07:15 08/28/24 07:00 08/28/24 07:00 08/28/24 07:00 08/28/24 07:00
Vital Signs
Temp Pulse Resp BP Pulse Ox
37.9 C 112 16 92/53 96
08/28/24 07:15 08/28/24 07:00 08/28/24 07:00 08/28/24 07:00 08/28/24 07:00
Intake & Output
08/26/24 08/27/24 08/28/24 08/29/24
07:59 07:59 07:59 07:59
Intake Total 5978.4 / 5978.4
Output Total 2465 / 2465
Balance 3513.4 / 3513.4
Physical Exam
Physical Exam
See above
[2024-08-28] MEDS: DULCOLAX 5 MG PO (11:17)
--- NOTE | 2024-08-28 11:35 | W.PN.ONC2 ---
Today's Communication / Plan
-
- Cr improving.
- apprec urology, nephrology recs regarding obstuctive nephropathy.
- plan to start Bicalutamide 08/29.
Impression
Impression
- Rhabdomyolysis
- AVERY
- blastic bone metastases
- prostate cancer with bladder obstruction, extensive pelvic, retroperitoneal adenopathy
- bilateral hydronephrosis
Plan
Plan
- imaging findings HIGHLY suspicious for metastatic prostate cancer with local extension/obstruction of bladder resulting in bilateral hydronephrosis, extensive LN involvement and extensive bone metastases. PSA pending.
- pt critically ill with hypotension, RVR on pressors with significant AVERY in setting of rhabdo, unclear if also underlying infection. initial BCX + staph aureus. ICU, nephrology following.
- unclear if AVERY related to rhabdo vs. element of obstructive nephropathy with bilateral hydro. placed consult to Urology as may require PCNs. Hernandez was able to be placed. Cr improving with IV hydration, hernandez down to 2.4 today.
- tissue for diagnosis confirmation not necessarily needed if PSA high with imaging findings however recommended to rule out more aggressive rare histologies (ie small cell) and for molecular testing. can consider doing this in-pt once hemodynamics
more stable.
- recommend starting Bicalutamide 50 mg daily, plan to start tomorrow as pt MS at baseline and clinically improving today (no renal dosing required). Reviewed with yesterday and pt today that he should establish an oncologist either here or in
[place] [facility] after discharge to start ADT and would consider first line chemotherapy for this pt with extensive dz. Pt states it can take months to see oncology in [place] and would consider starting at least ADT here while awaiting appointment.
- will continue to follow.
Subjective/Objective
Chief Complaint
AVERY, suspected metastatic prostate cancer, shock
Subjective
pt much more alert this am. He notes getting best sleep last 24 hours than he has had in months. Pain controlled at this time. Cr improved from 4.1 to 2.4 today after fluids.
Vital Signs:
Vital Signs
Temp Pulse Resp BP Pulse Ox
100.3 F 112 16 92/53 96
08/28/24 07:15 08/28/24 07:00 08/28/24 07:00 08/28/24 07:00 08/28/24 07:00
Lab Results:
Laboratory Data
WBC 8.2 10^3/uL (4.8-10.8) 08/28/24 03:57
Hgb 8.9 g/dL (13.0-18.0) L 08/28/24 03:57
Plt Count 174 10^3/uL (130-400) 08/28/24 03:57
PT 21.5 Sec (11.4-14.6) H 08/28/24 03:57
INR 1.85 08/28/24 03:57
APTT 61.3 Sec (23.4-35.0) H 08/28/24 03:57
eGFR 29.39 08/28/24 03:57
Physical Exam
HEENT: No Jaundice
Cardiology: Normal Sinus Rhythm
Pulmonary: Clear
GI: Soft; No Distended
Extremities: No Edema
Neuro: Non Focal
Review of Systems
Review of Systems
Constitutional: Reports Fatigue; Denies Fever
Respiratory: Denies Dyspnea
Cardiovascular: Denies Chest Pain
Genitourinary: Reports Hematuria
Neurological: Denies Headache
Orders
Orders
Orders From Last 24 Hours
08/27/24 12:39
Consult Urology [UROLOGY CONSULT] Routine
08/29/24 08:00
Bicalutamide [Casodex] 50 mg PO DAILY
--- NOTE | 2024-08-28 11:58 | CM ---
CM following re: discharge planning.
Discussed in Rounds, reviewed pt's chart, met with pt. Pt's son and daughter who live in [place] at bedside.
Pt is a 64 year old male, admitted with primary dx of AVERY, suspected metastatic prostate cancer, shock. per Oncology, pt will start chemotherapy here in [place] or in [place].
Per son and daughter who live in [place], pt lives with spouse 2SH, 2 steps to enter in [facility], has 2 supportive children. Per daughter, pt ambulates wit a walker at baseline and spouse provided all necessary care/supervision pt needed.
PCP: per daughter, pt does not have PCP in [facility]
Pharmacy: [facility] [place].
D/C plan: home with services when medically stable. Return back to [place] for ongoing treatment.
CM will follow with discharge plan updates as hospitalization progresses
--- NOTE | 2024-08-28 12:00 | PTCARENOTE ---
Pt assessed.No change in assessment noted.Multi Podus boots applied as ordered. Pt's at bedside.Plan of care discussed.
--- NOTE | 2024-08-28 12:30 | W.PN.INTV ---
Today's Communication / Plan
Recommendations
Continue antibiotics
Zosyn/vancomycin for now
Wean down vasopressors as able
Follow renal function
Continue IV fluids
Baeza in place
Pain control with narcotics, watch respiratory status closely
Assessment
-
64-year-old male with history of atrial fibrillation, history of nonischemic cardiomyopathy follows cardiology at [facility], 100 pound weight loss over the past year, has not had a bowel movement for 3 weeks according to , found with mental
status changes, found down at least throughout the day. Upon arrival to [facility], found to be in acute renal failure, rhabdomyolysis, hypotensive. Imaging suggested old moderate size cortical stroke, metastatic lesions throughout the
sternum, ribs, spine, and significant adenopathy throughout the abdomen. Patient given IV fluids, IV antibiotics, required norepinephrine. Patient brought to ICU for further management.
Septic shock
Hypotension, suspect urinary source
Acute renal insufficiency, creatinine 5.0
Hematuria, 1 L post Baeza catheter placement
Rhabdomyolysis
Anemia
Thrombocytopenia, Coagulopathy
100 pound weight loss
Elevated alkaline phosphatase greater than 2400
Constipation, no bowel movement x 3 weeks
Extensive suspected metastatic disease per imaging
Thoracic spine, ribs, sternum, sacrum, left pubic bone
Acute endplate fractures of T7
Multiple subacute, acute rib fractures
Severe metastatic adenopathy in the pelvis, retroperitoneum
Conditions present prior to admission
History of atrial fibrillation
History of nonischemic cardiomyopathy, myocarditis 20 years ago
Follows cardiology at [facility], details unclear
Family history of leukemia (brother)
History of binge alcohol, none for last year
Plan/recommendations
Patient is critically ill with multiorgan system failure-requiring vasopressors.
At unfortunately patient has had symptoms for at least few weeks including no bowel movement for 3 weeks.
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
He has lost 100 pounds over the last year
also describes multiple falls recently, difficulty urinating, dark urine
-
Septic shock: Likely urinary source
Urine culture negative
Blood culture positive for Staph aureus-identification pending.
Continue pip-tazo and vancomycin for now.
-
Continue Levophed/vasopressin-target mean arterial blood pressure 65 mmHg
IV fluids with additional boluses as able
-
Acute renal failure with rhabdomyolysis, hematuria
creatinine improving
1 L of bloody urine noted in the bladder post Baeza catheter placement
Suspect secondary to metastatic prostate cancer?
Significant pelvic and abdominal adenopathy noted on CT chest. Abdomen pelvis.
Nephrology following patient, case discussed.
No dialysis required.
Maintain IV fluids follow CK levels
-
Atrial fibrillation/history of heart failure
Cardiology following
No diuresis for now
Echocardiogram pending
Patient also high risk for thromboembolic disease
Unfortunately, given gross hematuria, falls, acute rib fractures, not ideal candidate for anticoagulation
Obtain cardiology records from [facility]
Cancer related pain:
Patient also complaining of not feeling well, generalized pain. Suspect secondary to metastatic osseous disease
Dilaudid as needed for pain
Oncology following the patient to start therapy 08/29/2024.
DVT prophylaxis: Continue SCDs. Pharmacological prophylaxis on hold due to hematuria. Will reassess in 24 hours
GI prophylaxis: Continue Protonix
-
Reviewed with critical care nursing, primary service
-
Dr. Massey updated and children at the bedside 08/28/2024. Remains full code.
-
Critical care statement: A total of 38 minutes of critical care time was provided for this patient today. This includes management of unstable vital signs, evaluation of the patient at bedside, reviewing the patient's pertinent medical records
including ventilator settings, arterial blood gases, radiographs, microbiology, laboratory evaluations and discussion with primary team, critical care nursing, and respiratory therapy.
Subjective Dataa
Subjective Data
Date of Service:
Date of Service: August 28, 2024
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
Subjective:
Patient offers no complaints this morning
He is in bed and denies any nausea or vomiting.
Denies abdominal pain.
His bone pain is controlled
Review of Systems
General: Fever (n)
Cardiopulmonary: Dyspnea (none at rest)
GI: Abdominal Pain (n) and Nausea (n)
Neuro: Headache (n)
Objective Data
Data Reviewed
Vital Signs / I&O / Oxygen:
Vital Signs
Temp Pulse Resp BP Pulse Ox
100.3 F 112 16 92/53 96
08/28/24 07:15 08/28/24 07:00 08/28/24 07:00 08/28/24 07:00 08/28/24 07:00
Intake and Output
08/27/24 08/28/24 08/29/24
06:59 06:59 06:59
Intake Total 5978.4 / 5978.4
Output Total 2465 / 2465
Balance 3513.4 / 3513.4
SaO2 96
Physical Exam
General: Comfortable
HEENT: Normocephalic
Cardiovascular: S1-S2
Respiratory: Non-Labored Respirations
GI: Soft and Non Distended
Neurology: Awake and AO x 3
Skin: Warm
Labs/Micro/Reports
Lab Data
08/28/24 03:57
08/28/24 03:57
Laboratory Results
08/27/24 08/27/24 08/28/24
13:12 13:31 03:57
PT 25.1 H 21.5 H
INR 2.26 1.85
APTT 67.2 H 61.3 H
pH 7.50 H
pCO2 28 L
pO2 94
HCO3 21.8
O2 Delivery Level
Microbiology
08/27/24 13:51 Urine Urine Culture - Final
NO GROWTH
08/27/24 10:30 Urine Urine Culture - Final
NO GROWTH
08/27/24 13:31 Blood/Venous Blood Culture - Preliminary
Staphylococcus aureus
08/27/24 13:31 Blood/Venous Gram Stain - Final
08/26/24 23:57 Nasal Swab Influenza Types A & B (WINTER) - Final
Negative for Influenza A & B, NAAT
Negative results must be combined with clinical observations
and patient history.
Nucleic Acid Amplification test (NAAT)performed on the
[employer] platform.
--- NOTE | 2024-08-28 12:52 | PHA.VAN.IN ---
Assessment
- Assessment
Renal Function: Unknown baseline (resolving renal failure since admisiion 4.4--->2.4)
Maximum Temperature: 102.1 - 08/27/23 12:24
Concomitant Antimicrobials: piperacillin/tazo
Plan
- Plan
Initial / Loading Dose: 2000 mg loading dose x 1 - started 08/28 12:14
Maintenance Regimen: dose by random level due to elevated SCr
Monitoring: random AM 08/29/24
Pharmacokinetics Vancomycin I
- -
Patient Age: 64
Patient Sex: Male
Vancomycin Day #: 1
Indication: Bacteremia
Requesting Provider: Estuardo
Height / Weight:
Height 5 ft 11 in
Actual Weight 107.3 kg
Pertinent Past Medical History: 100 lb wt loss over part year; metastatic disease
- Vital Signs / Lab Results
Temp Pulse Resp BP Pulse Ox
100.3 F 112 16 92/53 96
08/28/24 07:15 08/28/24 07:00 08/28/24 07:00 08/28/24 07:00 08/28/24 07:00
Lab Results - Hematology
08/26/24 08/27/24 08/27/24
23:35 06:54 15:05
WBC 7.1 5.2 8.1
08/28/24
03:57
WBC 8.2
Lab Results - Chemistry
08/26/24 08/27/24 08/27/24
23:34 06:54 15:05
BUN 65 H 69 H 72 H
Creatinine 4.4 H* 5.0 H* 4.1 H*
Estimated Creat Clear 21 18 22
Albumin 3.5 3.2 L
08/28/24
03:57
BUN 63 H
Creatinine 2.4 H
Estimated Creat Clear 38
Albumin 2.2 L
Lab Results - Urine
08/27/24
10:30
Urine Nitrite Cancelled
Urine Nitrite (Reflex) Negative
Ur Leukocyte Esterase Cancelled
Leukocyte Esterase Rfl 1+ A
Urine WBC (Reflex) 6-10
Ur Squamous Epith Cells 3-5
Urine Bacteria (Reflex) Few A
Microbiology Results
08/27/24 13:51 Urine Culture - Final
Urine NO GROWTH
08/27/24 10:30 Urine Culture - Final
Urine NO GROWTH
08/27/24 13:31 Blood Culture - Preliminary
Blood/Venous Staphylococcus aureus
Gram Stain - Final
08/26/24 23:57 Influenza Types A & B (WINTER) - Final
Nasal Swab Negative for Influenza A & B, NAAT
Negative results must be combined with clinical observations
and patient history.
Nucleic Acid Amplification test (NAAT)performed on the
[employer] platform.
--- NOTE | 2024-08-28 13:10 | W.PN.UPDATE ---
Update Note
Progress Note Update
updated at the bedside: Concerned about his progressive lower extremity weakness. Patient states that is slowly he has developed this over time. Now unable to move both legs.
Based on CAT scan patient is significant metastatic disease:
VERY EXTENSIVE BLASTIC OSSEOUS METASTATIC DISEASE in the lumbar spine, pelvic bones, and proximal femurs.
Multiple pathologic fractures in the lower lumbar spine.
Extra osseous extension of malignancy from the sacrum and left pubic bone into the adjacent soft tissues.
SEVERE METASTATIC LYMPHADENOPATHY in the pelvis.
Moderate metastatic lymphadenopathy in the retroperitoneum.
-
Metastatic disease could explain this.
Alternatively patient has lost about 100 pounds and muscle mass loss may be contributed.
Follow total CK
MRI may be necessary to rule out cord compression-will obtain MRI of the thoracic and lumbar spine now.
Oncology updated.
It is not clear to me whether any additional intervention will be necessary.
[2024-08-28] MEDS: VANCOCIN 540 MG IV (13:12)
[2024-08-28] MEDS: PROTONIX 40 MG PO (13:12)
--- NOTE | 2024-08-28 13:57 | W.PN.UPDATE ---
Update Note
Progress Note Update
Did discuss with his my concern regarding his lower extremity weakness and potential cord compression.
I explained her that MRI should be performed as soon as possible to rule out cord compression. She is concerned about the financials, she will call her family and let me know. Patient is from [place] and does not have medical insurance here in the
[place].
She does understand that this is time sensitive and if cord compression persists for Prolonged time it may be irreversible.
--- NOTE | 2024-08-28 16:00 | PTCARENOTE ---
Pt assessed.No change in assessment noted.
[2024-08-28] MEDS: TYLENOL 650 MG PO ×2 (16:58→21:01)
--- NOTE | 2024-08-28 18:44 | W.PN.HOSP.TC ---
Today's Communication/Plan
-
Case Management consult
continue abx
Assessment / Plan
Assessment / Plan
Septic Shock
continues to require Pressors
Pt only doctor as outpatient is Nigel Winston of Cardiology at [facility]
Urine Cx neg
Blood Cx +Staph aureus
1. AVERY/Rhabdo - suspect partly due to rhabdomyolysis but unsure given duration of being down and degree of cpk elevatin and AVERY there is possibly ongoing CKD whose etiology is unclear. Patient has h/o CHF but appears euvolemic today. Not currently
on diuretics and has borderline low BPs recently. No hydronephrosis or bladder retention obvious on CT scan.
- admit to imu
- continue with IV fluids NS
- monitor strict i/os
- trend cpk
- monitor for signs of overload and may initiate diuretics if SBP > 110
- phos level, urine protein/cr,
- nephrology consultation
Creat 4.4-->5.0-->2.4
2.AFIB RVR - known afib, was to be on apixaban but could not afford. On coreg 25 bid and aspirin. Rates in the 110s
- rehydration
- hold ac, consider restart apixaban pending decision on biopsy
- hold on Beta Blockers due to hypotension
- diltiazem gtt if needed for rate control
- cardiology consult
3. Elevated T bili and alkphos - liver/billiary mets versus non liver elevation of alkphos - most likely bone related
- 64 ggt
-check direct bili
- RUQ u/s (non-con CT)
- consider abdominal mri w/o contrast
4. Metastatic dz - Suspect elevated alkphos is due to osseus lesions from Prostatic metastatic disease. No clear primary but concern for lung, prostate, kidney, skin
- oncology consult
- check psa, cea, ca 19-9, afp
- additional imaging somewhat limited but lymph node or lesions may be biopsied
- patient prefers to complete w/u in [place] if possible
- PT evaluation
5. Pt notes weak lower extremities
Bryson raises concern for metastatic disease to the spine and would like to check MRI. Pt and are hesitant and would like to find out about transfer to [place] possibility.
Will request CM consult
reviewed result of CT scan with (PORSCHE Chen), out of room
Oncology has been consulted, but first order of business will be to stabilize pt
CHEST:
1. MULTIFOCAL BLASTIC OSSEOUS METASTATIC DISEASE involving the thoracic spine, ribs, and sternum.
2. Acute superior and inferior endplate fractures of T7 (either pathologic or traumatic in etiology).
3. Multiple acute and subacute right rib fractures (either pathologic or traumatic in etiology).
4. Moderate cardiomegaly.
5. Multiple small subcentimeter centrilobular pulmonary nodules in the right upper lobe which are most likely secondary to peripheral endobronchial infection. Pulmonary metastases are an alternative diagnostic possibility.
6. Minimal bilateral pleural effusions.
ABDOMEN and PELVIS:
1. SEVERE PROSTATE CANCER with extracapsular extension of malignancy and URINARY BLADDER OUTLET OBSTRUCTION.
2. Severely distended urinary bladder.
3. Moderate bilateral hydronephrosis.
4. VERY EXTENSIVE BLASTIC OSSEOUS METASTATIC DISEASE in the lumbar spine, pelvic bones, and proximal femurs.
5. Multiple pathologic fractures in the lower lumbar spine.
6. Extra osseous extension of malignancy from the sacrum and left pubic bone into the adjacent soft tissues.
7. SEVERE METASTATIC LYMPHADENOPATHY in the pelvis.
8. Moderate metastatic lymphadenopathy in the retroperitoneum.
9. Large amount of fecal material in the proximal colon.
10. Moderate splenomegaly.
DVT PPX - heparin sq placed on hold with hematuria, CCM will consider restarting
on admission, INR was 2.42/PTT 85.3-->2/3 1.85/61.3
most likely related to septic shock, will place Heparin on hold, await further input from Heme/Onc
Very complex situation on multiple aspects
Total Critical Care Time 60 minutes. I was immediately available to the patient and staff. I personally examined, reviewed labs, diagnostic images/reports, interpretations, treatment plans, discussed patient care with other providers and family
or caregivers (if patient is unable to make decisions), entered orders as appropriate and documented the medical record.
Very complex situation
Code status - full code
Anticipated Discharge: > 48 hours
Subjective/Interval History
-
Date of Service: August 28, 2024
Pt does not have [employer] Insurance, as [place] he would like to go back to [place] for treatment
Objective Data
-
Vital Signs:
Vital Signs
Temp Pulse Resp BP Pulse Ox
101.2 F H 105 18 102/68 96
08/28/24 15:43 08/28/24 17:30 08/28/24 17:30 08/28/24 17:30 08/28/24 17:30
I&O
08/27/24 08/28/24 08/29/24
06:59 06:59 06:59
Intake Total 5978.4 / 6176.0 1837.4 / 1837.4
Output Total 2465 / 2465 1225 / 1225
Balance 3513.4 / 3711.0 612.4 / 612.4
Review of Systems
-
History Source: Patient and Family (reviewed with , April MORRELL, both in and out of room)
Constitutional: Reports Fever (98.1-->102.1-->101.2)
EENT: Reports No Symptoms Reported
Respiratory: Reports No Symptoms
Cardiac: Denies Chest Pain
Abdomen/GI: Reports Constipated (no BM in 3 weeks)
Genitourinary: Reports Other (was not urinating, ordered hernandez, drained >1000 cc)
Physical Exam
-
General: Well Developed, Well Nourished and Other (appears much less ill yovani when initially admitted)
HEENT: Normocephalic and Atraumatic
Respiratory: Clear to Auscultation (on shallow respirations)
Cardiac: S1/S2 and Irregular Rhythm
GI: Soft, Nontender and Nondistended
Musculoskeletal: No Clubbing, No Cyanosis and No Edema
Skin: Warm and Dry
--- NOTE | 2024-08-28 20:00 | PTCARENOTE ---
Patient received in bed, AAOX3, offers no complaints. Refusing turns, educated at this time. 5/5 movement in bilateral upper extremities, 0/5 in bilateral lower extremities. Afib on monitor, febrile, blood pressure as documented. palpable pulses
throughout, + edema to lower extremities. Lungs diminished, pulse ox 95% on room air. Abdomen obese with positive bowel sounds. Poor appetite noted. Baeza catheter draining blood tinged urine. RDL PICC with IVF, Levophed, and Vasopressin gtts
infusing as documented. Family at bedside.
[2024-08-28 20:04] LABS: Vitamin D, 25-OH*** 20.8 ng/mL (30-80)
[2024-08-28 20:09] LABS: AFP Male/Tumor Marker 4 ng/mL (0-9)
[2024-08-28 20:18] LABS: CEA 1.77 ng/ml
[2024-08-28] MEDS: SENOKOT 8.6 MG PO (21:01)
[2024-08-28 22:00] LABS: PSA, Total - Screen > 2000.00 ng/ml (0.0-4.0)
[2024-08-29] VITALS (61 sets, daily range): BP systolic 59–114; BP diastolic 48–79
[2024-08-29] MEDS: ROXICODONE 2.5 MG PO ×3 (01:03→22:20)
[2024-08-29 01:08] LABS: CA 19-9 17 U/mL (<=35)
--- NOTE | 2024-08-29 01:25 | PTCARENOTE ---
Patient reassessed, incontinent of liquid stool, CHG bath given, linens changed. Sacral foam placed. Turned and repositioned. at bedside
[2024-08-29] MEDS: PITRESSIN 100 IV (03:31)
[2024-08-29] MEDS: LEVOPHED 258 MG IV (03:32)
[2024-08-29] MEDS: NSS 1000 IV (03:33)
--- NOTE | 2024-08-29 04:57 | PTCARENOTE ---
Patient sleeping, no changes in assessment,
[2024-08-29] MEDS: ZOSYN 50 IV ×2 (05:16→11:25)
[2024-08-29 05:34] LABS: Vancomycin Random 9.5 ug/ml
[2024-08-29 05:41] LABS: Blood Urea Nitrogen 47 mg/dl (9-20); Carbon Dioxide 22 mmol/L (22-30); Chloride 105 mmol/L (98-107); Creatine Phosphokinase 1571 U/L (55-170); Estimated Creatinine Clearance 85 ml/min; Glucose 128 mg/dl (70-99); Potassium 3.4 mmol/L (3.5-5.1); Sodium 135 mmol/L (135-145); eGFR > 60.00
[2024-08-29 05:51] LABS: Hematocrit 24.3 % (39.0-52.0); Mean Corp Hgb Conc. 32.9 g/dL (33.0-37.0); Mean Corpuscular Hgb 30.1 pg (27.0-31.0); Mean Corpuscular Volume 91.4 fL (80.0-94.0); Mean Platelet Volume 9.2 fL (7.4-10.4); Platelet Count 172 10^3/uL (130-400); Red Blood Cell Count 2.66 10^6/uL (4.70-6.10); Red Cell Dist. Width 13.9 % (11.5-14.5); White Blood Cell Count 8.5 10^3/uL (4.8-10.8)
[2024-08-29] MEDS: CALCIUM GLUCONATE 100 IV (06:35)
[2024-08-29] MEDS: KCL 270 MEQ IV (06:35)
[2024-08-29] MEDS: CASODEX 50 MG PO (07:31)
[2024-08-29] MEDS: PROTONIX 40 MG PO (07:31)
[2024-08-29 07:57] LABS: % Basophils 0.1 % (0-2); % Eosinophils 0.4 % (0-6); % Immature Granulocytes 1.4 % (0-0.5); % Lymphocytes 22.7 % (20.5-51.1); % Monocytes 11.1 % (1.7-9.3); % Neutrophils 64.3 % (42.2-75.2); Absolute Immature Granulocytes 0.1 10^3/uL (0-0.05); Absolute Lymphocytes 1.9 10^3/uL (1.2-3.4); Absolute Monocytes 0.9 10^3/uL (0.1-0.6); Absolute Neutrophils 5.5 10^3/uL (1.4-6.5); Nucleated Red Blood Cells % 0 % (-)
--- NOTE | 2024-08-29 08:48 | W.PN.URO.CBU ---
Today's Communication / Plan
-
Rec: keep Baeza
med tx of prostate cancer per Med Onc
will recommend TURP later during month after stabilization of acute issues
Assessment / Plan
-
presumed metastatic prostate cancer [PSA >2000] causing urinary retention/obstructive nephropathy/AVERY
Diagnosis
-
Date of Service: August 29, 2024
-
Patient Diagnosis:
suspected metastatic prostate cancer causing urinary retention/obstructive nephropathy/AVERY
Rec: keep Baeza
med tx of prostate cancer per Med Onc
will recommend TURP later during month after stabilization of acute issues
Objective
-
Vital Signs
Temp Pulse Resp BP Pulse Ox
98 F 109 21 102/65 94
08/29/24 03:20 08/29/24 07:30 08/29/24 07:30 08/29/24 07:30 08/29/24 07:30
Intake and Output
08/28/24 08/29/24 08/30/24
06:59 06:59 06:59
Intake Total 5978.4 / 6176.0 3493.0 / 3791.8 298.8 / 298.8
Output Total 2465 / 2465 1625 / 1625
Balance 3513.4 / 3711.0 1868.0 / 2166.8 298.8 / 298.8
Intake:
Oral fluids 240 / 240
IV fluids (Total) 4638.4 / 4836.0 3443.0 / 3576.8 133.8 / 133.8
IVF 3450 / 3600 2500 / 2600 100 / 100
Levo 1044.4 / 1080.0 625.0 / 646.8 21.8 / 21.8
Vaso 144 / 156 318 / 330 12 / 12
IV piggybacks 1100 / 1100 50 / 215 165 / 165
Output:
Urine, Baeza 1215 / 1215 1625 / 1625
Urine, Voided 1250 / 1250
Laboratory Results
08/29/24 04:47
08/29/24 04:47
PSA >2000
Physical Exam
-
General - well developed, well nourished, no acute distress
Chest - clear bilaterally
Abdomen - soft, non-tender, positive bowel sounds, no CVAT, no incisional pain or distention
Genitalia - normal
Rectal - normal
Skin - warm & dry with no rash
Neuro - AOx3, no motor deficits
Extremities - no clubbing, no cyanosis, no edema
Incision - clean, dry
Dressing - clean, dry, intact
--- NOTE | 2024-08-29 09:24 | PTCARENOTE ---
Received pt awake and alert. Speech is slow but appropriate. Denies pain. +5/5 movement bl upper extremities.0/5 movement bl lower extremities with decreased sensation noted.A Fib noted.Right PICC intact with Vasopressin and Levophed gtts. Crackles
in bases. POX 94% on RA. Appetite poor. No BM. Baeza draining red bloody urine with clots noted. Skin integrity as documented. Pt's spouse at bedside. Plan of care discussed.
--- NOTE | 2024-08-29 09:25 | W.PN.NEPH.PH ---
Today's Communication / Plan
-
will sign off
hold further IVFs
Assessment/Plan
-
IMP:
AVERY
Bilat hydronephrosis with distended bladder-ALSTON
Hypotension
Rhabdomyolysis
AFIB RVR
Metastatic dz - likely prostate
Significantly elevated ALP likely from bone metastases
Anemia
Hyponatremia
Plan:
A/w found down
AVERY-severe with RHabdo and obst uropathy-bilat hydro on CT, consulted
Creatinine down to 1.1 BUN 63 nonoliguric with urine output greater than 1.3 L
Maintain hernandez, check urine studies: Urine protein to creatinine ratio 200 mg
Remains hypotensive on levophed
will d/c further IVFs
trend CK-down to 1500
hypotension-pressors to keep MAP>65
Hyponatremia stable serum sodium 135
Replete potassium
no emergent indication of HD
avoid nephrotoxins
d/w primary
Patient critically ill requiring 2 pressor support in setting of acute renal failure
we will sign off
-
-
Date of Service: August 29, 2024
CC / HPI / ROS
-
Chief Complaint:
AVERY
History of Present Illness:
Creatinine improved to 1.1
Hemodynamically labile on levophed
Remains on Zosyn
Review of Systems:
Nonoliguric via Hernandez
Noted fevers over past 24 hours
Labs
-
Labs:
WBC 8.5 10^3/uL (4.8-10.8) 08/29/24 04:47
RBC 2.66 10^6/uL (4.70-6.10) L 08/29/24 04:47
Hgb 8.0 g/dL (13.0-18.0) L 08/29/24 04:47
Hct 24.3 % (39.0-52.0) L 08/29/24 04:47
Plt Count 172 10^3/uL (130-400) 08/29/24 04:47
Sodium 135 mmol/L (135-145) 08/29/24 04:47
Potassium 3.4 mmol/L (3.5-5.1) L 08/29/24 04:47
Chloride 105 mmol/L (98-107) 08/29/24 04:47
Carbon Dioxide 22 mmol/L (22-30) 08/29/24 04:47
BUN 47 mg/dl (9-20) H 08/29/24 04:47
Creatinine 1.1 mg/dL (0.7-1.3) 08/29/24 04:47
eGFR > 60.00 08/29/24 04:47
Glucose 128 mg/dl (70-99) H 08/29/24 04:47
Calcium 7.0 mg/dl (8.4-10.2) L 08/29/24 04:47
Phosphorus 3.8 mg/dl (2.5-4.5) 08/27/24 06:54
Dop-X-Idtemymrmeg Pept 9920 pg/ml 08/27/24 06:54
Albumin 2.2 g/dl (3.5-5.0) L 08/28/24 03:57
Physical Exam
-
Vital Signs:
Vital Signs
Temp Pulse Resp BP Pulse Ox
99.2 F 101 23 99/59 95
08/29/24 07:40 08/29/24 09:15 08/29/24 09:15 08/29/24 09:00 08/29/24 09:15
Cardiovascular:: Irregular rate and rhythm
Respiratory:: Bilateral: CTA
Lung Excursion:: Normal
Abdomen:: Nontender and Soft
Bowel Sounds:: Decreased
Extremity Edema:: +1: Bilateral:
Hernandez Catheter: Yes
[2024-08-29] MEDS: SOLU-CORTEF 50 MG IV ×3 (09:53→22:20)
[2024-08-29] MEDS: LEVOPHED IV (09:53)
--- NOTE | 2024-08-29 10:03 | W.PN.CARDCBS ---
Today's Communication / Plan
-
Attempt to wean vasopressin, continue phenylephrine
Eventual furosemide, eventual restart of carvedilol
In the interim, add digoxin and supplement potassium
Management of potential spinal cord injury per hospitalist, [employer] promotional sales, neuro, etc.
Impression / Plan
-
Impression:
- Septic shock
- Rhabdomyolysis
- AVERY
- Atrial fibrillation with rapid ventricular rate ( describes permanent atrial fibrillation)
- History of cardiomyopathy/heart failure with recovered ejection fraction
- Anemia
- Thrombocytopenia
- blastic bone metastases
- prostate cancer with bladder obstruction, extensive pelvic, retroperitoneal adenopathy
- bilateral hydronephrosis
-Possible spinal cord compression
Echo 08/28/2024: Dilated LV, EF 55-60%, possible basal and mid inferior akinesis, LVH, moderate mitral regurgitation, MAC, moderately dilated left atrium, mild to moderate tricuspid regurgitation, pulmonary artery pressure 46 mmHg above mean right
atrial pressure, normal RV
Plan:
At present, his heart rate in atrial fibrillation is slightly elevated but acceptable. He is currently off norepinephrine having been switched to phenylephrine. He is still on vasopressin and is retaining fluid.
At present it seems like he may have a spinal cord injury related to bony metastatic prostate cancer to spine with spinal cord compression. He has severe sensory and motor deficits of the abdomen and lower extremities. This in retrospect has
probably been present since his fall on Wednesday. Options are very limited.
Spinal cord injury may account for his hypotension.
Although he likely has acute HFpEF, he is not in distress and his echocardiogram is overall reassuring.
He remains off carvedilol related to hypotension. Will add low-dose digoxin. Will need to supplement potassium we could consider amiodarone for rate control as his atrial fibrillation is largely permanent.
Ideally, would add furosemide given that he is volume overloaded with proBNP greater than 9000. However, given hypotension will hold off for now.
Cortisol level this morning was 38, patient currently on hydrocortisone 50 mg every 8 hours, defer to [employer] promotional sales
Antibiotics per primary service.
To optimize volume status and heart rate, continue phenylephrine which is a better choice than norepinephrine, and attempt to wean vasopressin.
Case management to address issues regarding [place] citizenship and [place]
Overall complex and very unfortunate situation.
Progress Note - Picker
Subjective
Date of Service: August 29, 2024:
64-year-old man admitted with weakness and rhabdomyolysis after laying on the ground, CPK 7450, presented to the emergency department with fever and hypotension with permanent atrial fibrillation and rapid ventricular response. He had evidence of
bladder outlet obstruction, Baeza placed for 900 mL, initial creatinine as high as 5 and 24 hours later following Baeza placement 2.4, patient with suspected widely metastatic prostate cancer and bony lesions, D-dimer greater than 20, sodium 129,
alkaline phosphatase greater than 2400 with AST 238, proBNP 9920, concern has been raised regarding spinal cord compression
Overall he feels much better
PMH: Cardiomyopathy/CHF, permanent atrial fibrillation, noncompliance, receives care in [place]
Current meds: Vasopressin, Gregory-Synephrine, norepinephrine, Casodex 50 mg a day, pantoprazole 40 mg a day, Zosyn, vancomycin, hydrocortisone
Blood pressure 99/59, pulse 101, respirate 23, afebrile, intake and output +2.4 L, weight is 107.3 kg yesterday, weight at admission was 102.8 kg, no distress, April at bedside, neuro - decreased sensorium abdomen and lower extremities,
minimal movement of toes if any on command, cannot lift legs, no acute distress, lungs are relatively clear, irregular rate and rhythm somewhat tachycardic, soft systolic murmur, JVD okay, anasarca
Chest x-ray cardiomegaly, no active disease
Hemoglobin 8, platelets are 172, potassium is 3.4, BUN and creatinine are 47 and 1.1, potassium is 3.4, CPK is 1571, calcium is 7, PSA is greater than 2000, proBNP was 9920
Objective
Labs:
08/29/24 04:47
08/29/24 04:47
Labs
Hgb 8.0 g/dL (13.0-18.0) L 08/29/24 04:47
Hct 24.3 % (39.0-52.0) L 08/29/24 04:47
Plt Count 172 10^3/uL (130-400) 08/29/24 04:47
PT 21.5 Sec (11.4-14.6) H 08/28/24 03:57
INR 1.85 08/28/24 03:57
APTT 61.3 Sec (23.4-35.0) H 08/28/24 03:57
Sodium 135 mmol/L (135-145) 08/29/24 04:47
Potassium 3.4 mmol/L (3.5-5.1) L 08/29/24 04:47
BUN 47 mg/dl (9-20) H 08/29/24 04:47
Creatinine 1.1 mg/dL (0.7-1.3) 08/29/24 04:47
Glucose 128 mg/dl (70-99) H 08/29/24 04:47
Vital Signs and I&O:
Vital Signs
Temp Pulse Resp BP Pulse Ox
37.3 C 101 23 99/59 95
08/29/24 07:40 08/29/24 09:15 08/29/24 09:15 08/29/24 09:00 08/29/24 09:15
Vital Signs
Temp Pulse Resp BP Pulse Ox
37.3 C 101 23 99/59 95
08/29/24 07:40 08/29/24 09:15 08/29/24 09:15 08/29/24 09:00 08/29/24 09:15
Intake & Output
08/27/24 08/28/24 08/29/24 08/30/24
07:59 07:59 07:59 07:59
Intake Total 6176.0 / 6373.6 3597.2 / 3799.0 403.6 / 403.6
Output Total 2465 / 2715 1625 / 1625
Balance 3711.0 / 3658.6 1972.2 / 2174.0 403.6 / 403.6
Physical Exam
Physical Exam
See above
[2024-08-29] MEDS: NEO-SYNEPHRINE 250 IV ×2 (10:23→17:14)
--- NOTE | 2024-08-29 10:50 | PTCARENOTE ---
Levophed weaning off with start of Gregory-synephrine. Blood cx X2 drawn.
--- NOTE | 2024-08-29 10:55 | W.PN.ONC ---
Today's Communication / Plan
-
Needs MRI to evaluate for cord compression to explain leg weakness (could also be contributing to low BP)
CM has been consulted to comment on financial implications of inpatient MRI (has [place] insurance)
He's been started on solumedrol for possible adrenal insufficiency (steroids are first line treatment for cord compression as well, though will need higher doses (and dexamethasone) if confirmed)
Starting bicalutamide today. Rec adding Lupron or similar in about ~2 weeks (details TBD)
Will continue to follow
Impression
Impression
- Rhabdomyolysis
- AVERY
- blastic bone metastases
- prostate cancer with bladder obstruction, extensive pelvic, retroperitoneal adenopathy; PSA > 2000, alk phos > 2400
- bilateral hydronephrosis
- leg weakness
Plan
Plan
Needs MRI to evaluate for cord compression to explain leg weakness (could also be contributing to low BP)
CM has been consulted to comment on financial implications of inpatient MRI (has [place] insurance)
He's been started on solumedrol for possible adrenal insufficiency (steroids are first line treatment for cord compression as well, though will need higher doses (and dexamethasone) if confirmed)
Starting bicalutamide today. Rec adding Lupron or similar in about ~2 weeks (details TBD)
Will continue to follow
Subjective/Objective
Subjective/Objective
severe leg weakness persists, with saddle anesthesia
Vital Signs:
Vital Signs
Temp Pulse Resp BP Pulse Ox
99.2 F 103 23 98/61 95
08/29/24 07:40 08/29/24 10:31 08/29/24 10:31 08/29/24 10:30 08/29/24 10:31
Lab Results:
Laboratory Data
WBC 8.5 10^3/uL (4.8-10.8) 08/29/24 04:47
Hgb 8.0 g/dL (13.0-18.0) L 08/29/24 04:47
Plt Count 172 10^3/uL (130-400) 08/29/24 04:47
PT 21.5 Sec (11.4-14.6) H 08/28/24 03:57
INR 1.85 08/28/24 03:57
APTT 61.3 Sec (23.4-35.0) H 08/28/24 03:57
eGFR > 60.00 08/29/24 04:47
--- NOTE | 2024-08-29 11:01 | PN.CDI ---
CDI
- -
CDI:
Physician Documentation Request
Admit Date: 08/27/24 04:21
Dear Doctor Jerri,
Please review the following and provide your response in the progress notes.
Clinical Indicators:
Pt admitted with septic shock, rhabdomyolysis, and AVERY.
2/2 Customer Operations Intern: ' hematuria-1 L of bloody urine noted in the bladder post Baeza catheter placement..'
2/3 Equipment Sales Specialist: '-Anemia-He has gross hematuria following Baeza placement.'
Laboratory Tests
08/26/24 08/28/24 08/29/24
23:35 03:57 04:47
Hgb 10.1 L 8.9 L 8.0 L
Based on the above, could you clarify, in your progress note, which of the following is the most likely type of anemia you are evaluating, monitoring and/or treating?
Acute blood loss anemia
Acute blood loss anemia with baseline chronic anemia (Specify type)
Anemia of chronic disease - indicate if neoplastic disease, CKD or other
Chronic iron deficiency anemia due to blood loss
Other
Use of terms such as suspected, likely, concern for, or probable (associated with a specific diagnosis that is being evaluated, monitored, or treated as if it exists) are acceptable and can be coded in the inpatient setting, when documented at the
time of discharge.
Thank you,
Casandra Conley RN, BSN
CDI Specialist
[place] [facility]
Please use your independent medical judgment in providing your response.
[2024-08-29] MEDS: PITRESSIN IV (11:07)
--- NOTE | 2024-08-29 11:08 | PHA.VAN.FU ---
Vancomycin Assessment / Plan
- Assessment
Renal Function: SCR Decreasing
WBC's are: WNL
Concomitant Antimicrobials: piperacillin/tazobactam
- Assessment - Therapeutic Drug Monitoring
Random Level: 9.5 - drawn ~15.5H after 2g loading dose
- Dosing Plan
Dosing by Level: Re-dose today (Vanc 1500mg)
- Monitoring Plan
Random Level: 08/30 0600
Monitoring Comments: AVERY resolving - will keep dose by level for today (BUN remains elevated)
- Follow Up
Pharmacy will continue to follow.
Vancomycin Follow UP
- -
Patient Age: 64
Patient Sex: Male
Vancomycin Day #: 2
Indication: Bacteremia
Requesting Provider: Estuardo
Pertinent Antimicrobial Allergies:
NKDA
Height / Weight:
Height 5 ft 11 in
Actual Weight 107.3 kg
Pertinent Past Medical History: BMI ~33, Metastatic prostate cancer
- Vital Signs / Lab Results
Temp Pulse Resp BP Pulse Ox
99.2 F 114 19 101/62 94
08/29/24 07:40 08/29/24 11:00 08/29/24 11:00 08/29/24 11:00 08/29/24 11:00
Lab Results - Hematology
08/26/24 08/27/24 08/27/24
23:35 06:54 15:05
WBC 7.1 5.2 8.1
08/28/24 08/29/24
03:57 04:47
WBC 8.2 8.5
Lab Results - Chemistry
08/26/24 08/27/24 08/27/24
23:34 06:54 15:05
BUN 65 H 69 H 72 H
Creatinine 4.4 H* 5.0 H* 4.1 H*
Estimated Creat Clear 21 18 22
Albumin 3.5 3.2 L
08/28/24 08/29/24
03:57 04:47
BUN 63 H 47 H
Creatinine 2.4 H 1.1
Estimated Creat Clear 38 85
Albumin 2.2 L
Microbiology Results
08/27/24 13:31 Blood Culture - Preliminary
Blood/Venous Staphylococcus aureus
Gram Stain - Final
08/27/24 13:51 Urine Culture - Final
Urine NO GROWTH
08/27/24 10:30 Urine Culture - Final
Urine NO GROWTH
Therapeutic Drug Monitoring
Random Vancomycin 9.5 ug/ml 08/29/24 04:47
--- NOTE | 2024-08-29 11:44 | W.PN.INTV ---
Today's Communication / Plan
Recommendations
Continue current antibiotic
Repeat blood cultures
Transition to Gregory-Synephrine from Levophed.
Continue vasopressin
Infectious disease consultation
Hopefully can obtain MRI of the lumbar spine and thoracic spine once the gives the okay.
Case management social work has been consulted as the patient is uninsured
Discontinue IV fluids
Repeat H&H, if stable later today then start DVT prophylaxis
Monitor hematuria.
Assessment
-
64-year-old male with history of atrial fibrillation, history of nonischemic cardiomyopathy follows cardiology at [facility], 100 pound weight loss over the past year, has not had a bowel movement for 3 weeks according to , found with mental
status changes, found down at least throughout the day. Upon arrival to [facility], found to be in acute renal failure, rhabdomyolysis, hypotensive. Imaging suggested old moderate size cortical stroke, metastatic lesions throughout the
sternum, ribs, spine, and significant adenopathy throughout the abdomen. Patient given IV fluids, IV antibiotics, required norepinephrine. Patient brought to ICU for further management.
Septic shock
Hypotension, suspect urinary source
Acute renal insufficiency, creatinine 5.0
Hematuria, 1 L post Baeza catheter placement
Rhabdomyolysis
Anemia
Thrombocytopenia, Coagulopathy
100 pound weight loss
Elevated alkaline phosphatase greater than 2400
Constipation, no bowel movement x 3 weeks
Extensive suspected metastatic disease per imaging
Thoracic spine, ribs, sternum, sacrum, left pubic bone
Acute endplate fractures of T7
Multiple subacute, acute rib fractures
Severe metastatic adenopathy in the pelvis, retroperitoneum
Conditions present prior to admission
History of atrial fibrillation
History of nonischemic cardiomyopathy, myocarditis 20 years ago
Follows cardiology at [facility], details unclear
Family history of leukemia (brother)
History of binge alcohol, none for last year
Plan/recommendations
Remains critically ill: On vasopressors Levophed/vasopressin.
Renal function improved.
-
At unfortunately patient has had symptoms for at least few weeks including no bowel movement for 3 weeks.
Patient has refused medical care per , only sees central service technician at [facility] for atrial fibrillation and heart failure history with cardiomyopathy
He has lost 100 pounds over the last year
also describes multiple falls recently, difficulty urinating, dark urine
-
Shock, suspect multiple sources: Possibly septic, cannot rule out neurogenic as the patient now has lower extremity weakness.
Echocardiogram noted with normal LVEF. Normal RV function. No severe valvular disease.
No leukocytosis, afebrile.
Chest x-ray without infiltrates.
Urine culture negative
Blood culture positive for Staph aureus-identification pending.
Repeat blood culture
Continue pip-tazo and vancomycin for now.
Given persistent shock despite negative urine culture on only 1 positive for staph hours. ID will be consulted for evaluation.
Discussed with multiple reasons for shock. Including neurogenic, I am requesting an urgent MRI of the thoracic and lumbar spine-I have discussed the urgency with his multiple times since 08/28/2024. Including permanent damage if there is
either spinal infectious versus metastatic disease with cord compression. She is concerned about financial status the patient is uninsured and he is from [place]. We have consulted case management/social work to assist.
I have discussed this with oncology, primary team Dr. Guthrie as well.
-
With 100 pound weight loss. Possibly this patient has some degree of relative adrenal insufficiency.
Will start hydrocortisone 50 mg IV every 6 hours empirically., As a trial. If there is no improvement on hemodynamics in the next 48 hours then we will discontinue
Cortisol level not significantly decreased.
-
Continue Levophed/vasopressin-target mean arterial blood pressure 65 mmHg.
Transition to Gregory-Synephrine as the patient is tachycardic. Continue vasopressin
Discontinue Levophed
Renal function is improved. No further IV fluids.
-
Acute renal failure with rhabdomyolysis, hematuria-hematuria improved. Renal function resolved.
1 L of bloody urine noted in the bladder post Baeza catheter placement
Suspect secondary to metastatic prostate cancer?
Significant pelvic and abdominal adenopathy noted on CT chest. Abdomen pelvis.
Nephrology following patient, case discussed.
No dialysis required.
CK levels improved.
-
Atrial fibrillation/history of heart failure
Continue with rate control as able.
Discontinue Levophed, transition to Gregory-Synephrine as above.
Cardiology following
No diuresis for now
Echocardiogram: Noted with normal LVEF. Normal RV function. No severe valvular disease. Pulmonary hypertension noted
Patient also high risk for thromboembolic disease
Unfortunately, given gross hematuria, falls, acute rib fractures, not ideal candidate for anticoagulation
-
Will need to contemplate DVT prophylaxis later today. Hemoglobin is trending lower. Hematuria seems to have improved. Hemoglobin decline may be dilutional.
No evidence for ongoing acute bleeding.
If hemoglobin is stable later start pharmacological prophylaxis with heparin SQ every 12.
Cancer related pain:
Patient also complaining of not feeling well, generalized pain. Suspect secondary to metastatic osseous disease
Dilaudid as needed for pain
Oncology following the patient to start therapy 08/29/2024.
Difficult situation. Patient will need to go back to [place] and skin oncology to get further care.
DVT prophylaxis: Continue SCDs. Repeat hemoglobin later today. If stable start DVT prophylaxis with heparin subcu.
GI prophylaxis: Continue Protonix
-
Reviewed with critical care nursing, primary service, consultants.
-
Dr. Massey updated and children at the bedside 08/28/2024 and 08/29/2024. Remains full code.
-
On 14 situation, patient is from [place]. He is uninsured here. Unclear whether his going to be able to continue with care in the [place]. Unable to be transferred to [place] as he is critically ill.
-
Critical care statement: A total of 40 minutes of critical care time was provided for this patient today. This includes management of unstable vital signs, evaluation of the patient at bedside, reviewing the patient's pertinent medical records
including ventilator settings, arterial blood gases, radiographs, microbiology, laboratory evaluations and discussion with primary team, critical care nursing, and respiratory therapy.
Subjective Dataa
Subjective Data
Date of Service:
Date of Service: August 29, 2024
Chief Complaint: Cvicu Nurse Follow Up (Septic shock/obstructive uropathy/rapid atrial fibrillation)
Subjective:
Patient offers no new complaints
Continues to report lower extremity weakness
Denies increased phlegm production
Denies chest pain
Denies headache or blurry vision
Review of Systems
Cardiopulmonary: Dyspnea (None at rest)
Neuro: Headache (n), Dizziness (n), Weakness (B both lower extremity) and Other (Denies swallowing problem)
Objective Data
Data Reviewed
Vital Signs / I&O / Oxygen:
Vital Signs
Temp Pulse Resp BP Pulse Ox
99.2 F 114 19 101/62 94
08/29/24 07:40 08/29/24 11:00 08/29/24 11:00 08/29/24 11:00 08/29/24 11:00
Intake and Output
08/28/24 08/29/24 08/30/24
06:59 06:59 06:59
Intake Total 5978.4 / 6176.0 3493.0 / 3794.8 991.0 / 991.0
Output Total 2465 / 2465 1625 / 1625 100 / 100
Balance 3513.4 / 3711.0 1868.0 / 2169.8 891.0 / 891.0
SaO2 94
Physical Exam
General: Comfortable
HEENT: Normocephalic
Cardiovascular: S1-S2 and Peripheral Edema (Both extremities)
Respiratory: Non-Labored Respirations
GI: Soft and Non Distended
Neurology: Awake, AO x 3 and Other (Lower extremity weak 1/5. Decreased sensation.)
Skin: Warm
Labs/Micro/Reports
Lab Data
08/29/24 04:47
Microbiology
08/27/24 13:31 Blood/Venous Blood Culture - Preliminary
Staphylococcus aureus
08/27/24 13:31 Blood/Venous Gram Stain - Final
08/27/24 13:51 Urine Urine Culture - Final
NO GROWTH
08/27/24 10:30 Urine Urine Culture - Final
NO GROWTH
08/26/24 23:57 Nasal Swab Influenza Types A & B (WINTER) - Final
Negative for Influenza A & B, NAAT
Negative results must be combined with clinical observations
and patient history.
Nucleic Acid Amplification test (NAAT)performed on the
[employer] platform.
[2024-08-29] MEDS: VANCOCIN 530 MG IV (12:01)
[2024-08-29] MEDS: KCL 40 MEQ PO (12:01)
[2024-08-29] MEDS: TYLENOL 650 MG PO (12:09)
[2024-08-29] MEDS: LANOXIN 250 MCG PO ×2 (12:09→20:14)
--- NOTE | 2024-08-29 12:59 | CON.ID ---
Consultation
-
Date/Time Consultation Requested: August 29, 2024 1156
Date/Time Consultation Performed: August 29, 2024 1300
Requesting Provider: Dr. Raman Marte
Performing Provider: Dr. Lucy Kaur
Reason for Consultation: Hypotensive, bacteremia
Chief Complaint / Past History
Chief Complaint
Weakness
History of Present Illness
History obtained from review of medical records as well as from the patient. His son, daughter and son-in-law also present. He is a 64-year-old male [place], has lived [place] the [place] 10 [place] with history of asthma, A-fib,
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 Patient has been having ambulatory dysfunction since October 2003. He reports he seek care from a
chiropractor. He had x-ray done which showed some changes and lumbar spine. Patient continued to progress from limping to the use of a cane. He has unintentional weight loss of 150 pounds during this time. On August 26, he slid off the bed and
unable to get back up. He stayed on the floor until his came home from work. Patient noted to be in rhabdomyolysis, AVERY. CAT scan of the abdomen and pelvis showed severe prostate cancer with extension causing urinary bladder outlet
obstruction, moderate bilateral hydronephrosis, very extensive blastic osseous metastatic disease in the lumbar spine pelvic bone and proximal femurs, multiple pathologic fractures in the lower lumbar spine, extraosseous extension from the sacrum
and left pubic bone into the adjacent soft tissues, severe metastatic lymphadenopathy in the pelvis and retroperitoneum. PSA over [address]. [address] in ED. Patient has been febrile since August 27. He has been hypotensive and currently on 3
pressors. Admission blood culture 2 out of 2 bottles positive for Staphylococcus aureus. TTE, no gross vegetation, positive thickened mitral valve leaflet with moderate mitral regurgitation. Since being in the hospital, patient unable to move
both lower extremities. He denies fevers or chills at home.
Past History
Additional Past Medical History:
Asthma
Afib
Nonischemic cardiomyopathy
Allergy History:
No Known Allergies Allergy (Verified 08/26/24 23:28)
Medications Reviewed: Yes
Current Antibiotics:
Vancomycin day 2
Zosyn day 3
Social History
Tobacco: Non-Smoker
Alcohol: Binge Drinker
Drug: None
Personal:
Living: With Family
Family History
Family History: Not Pertinent
Review of Systems
Review of Systems
General: Change in Appetite
HEENT: Negative Sinus Problems, Headache or Pharyngitis
Cardiovascular: Negative Chest Pain or Dyspnea
Respiratory: Negative Dyspnea or Cough
Gasteroenterology: Negative Nausea, Vomiting or Diarrhea
Genital / Urological: Negative Dysuria or Flank Pain
Endocrine: Weakness
Skin / Hair / Nails: Negative Rash
Neurological: Negative Dizziness
All systems: All other systems were reviewed and were negative
Vital Signs
Temp Pulse Resp BP Pulse Ox
100.9 F H 118 19 87/57 95
08/29/24 11:50 08/29/24 12:09 08/29/24 11:45 08/29/24 11:45 08/29/24 11:45
Physical Exam
Physical Exam
Constitutional: Acutely Ill
Eyes: No Conjunctival Hemorrhage and Other (sclera mild icterus)
Cardiovascular: Irregular Rate and Other (tachycardic)
Pulmonary: Clear
Gastrointestinal: Soft, Non Tender and Non Distended
Genito-Urinary: Hernandez and Clear Urine; Negative CVA Tenderness
Extremities: Negative Edema, Splinter Hemorrhage or Janeway Lesions
Musculoskeletal: Other (Unable to turn over or sit up for me examine spine)
Neurological: AO x 3 and Other (BLE no motor strength); Negative Meningeal Signs
Psychological: Calm
Lines: PICC (RUE intact)
Lab / Diagnostic Study Results
08/29/24 04:47
Abs Immat Gran (auto) 0.1 10^3/uL (0-0.05) H 08/29/24 04:47
Absolute Neuts (auto) 5.5 10^3/uL (1.4-6.5) 08/29/24 04:47
Absolute Lymphs (auto) 1.9 10^3/uL (1.2-3.4) 08/29/24 04:47
Absolute Monos (auto) 0.9 10^3/uL (0.1-0.6) H 08/29/24 04:47
Absolute Basos (auto) 0.0 10^3/uL (0-0.2) 08/29/24 04:47
Immature Gran % 1.4 % (0-0.5) H 08/29/24 04:47
Neutrophils % 64.3 % (42.2-75.2) 08/29/24 04:47
Lymphocytes % 22.7 % (20.5-51.1) 08/29/24 04:47
Monocytes % 11.1 % (1.7-9.3) H 08/29/24 04:47
Eosinophils % 0.4 % (0-6) 08/29/24 04:47
Basophils % 0.1 % (0-2) 08/29/24 04:47
PT 21.5 Sec (11.4-14.6) H 08/28/24 03:57
INR 1.85 08/28/24 03:57
Ur Squamous Epith Cells 3-5 /LPF (Few) 08/27/24 10:30
Microbiology Results
Micro:
08/29/24 10:21 Blood Culture - Pending
Blood/Venous
08/29/24 10:21 Blood Culture - Pending
Blood/Venous
08/27/24 13:31 Blood Culture - Preliminary
Blood/Venous Staphylococcus aureus
Gram Stain - Final
08/27/24 13:51 Urine Culture - Final
Urine NO GROWTH
08/27/24 10:30 Urine Culture - Final
Urine NO GROWTH
08/26/24 23:57 Influenza Types A & B (WINTER) - Final
Nasal Swab Negative for Influenza A & B, NAAT
Negative results must be combined with clinical observations
and patient history.
Nucleic Acid Amplification test (NAAT)performed on the
[employer] platform.
08/27/24 CT C-spine: MULTIFOCAL BLASTIC OSSEOUS METASTATIC DISEASE (C4 vertebral body, right C4 lateral mass, and posterior 3rd ribs bilaterally). Moderate to severe discogenic degenerative disease at C2/C3 with a moderate-sized disc-osteophyte
complex causing mild spinal cord compression and central canal stenosis.
08/27/24 CT c/a/p: SEVERE PROSTATE CANCER with extracapsular extension of malignancy and URINARY BLADDER OUTLET OBSTRUCTION.
2. Severely distended urinary bladder.
3. Moderate bilateral hydronephrosis.
4. VERY EXTENSIVE BLASTIC OSSEOUS METASTATIC DISEASE in the lumbar spine, pelvic bones, and proximal femurs.
5. Multiple pathologic fractures in the lower lumbar spine.
6. Extra osseous extension of malignancy from the sacrum and left pubic bone into the adjacent soft tissues.
7. SEVERE METASTATIC LYMPHADENOPATHY in the pelvis.
8. Moderate metastatic lymphadenopathy in the retroperitoneum.
08/27/24 CXR: Mild cardiomegaly. Midthoracic likely T7 partial vertebral compression fracture, incompletely evaluated on this study.
Assessment / Plan
# Staph aureus bacteremia (2 of 2 bottles)
# Fever persists
# Septic shock on 3 pressors
# 10 month h/o progressive BLE weakness
# New finding of prostate ca (likely stage IV) with extensive mets entire spine, pelvis, lymph nodes
# Bladder outlet obstruction from prostate ca, hernandez placed
# AVERY, resolved
# Uninsured
- Ucx neg.
- TTE no gross vege; thickened MV leaflet, mod MR
- CXR no pneumonia
- Agree with MRI spine to evaluate for cord compression from epidural abscess and/or osseous mets.
Pt and family worried about the cost of MRI, since patient does not have [place] insurance. They want to know the cost first.
I explained MRI must be done KIKI to look for reversible cause of BLE weakness, if not already too late.
I spoke to Multi Skilled Operator regarding family's financial concern. assistant farm operations manager stated he will connect family to the business office.
Shortly afterwards, patient's son informed me to go ahead with MRI
I discussed case with resizer operator, Dr. Massey MRI C/T/L spine wo and with contrast order placed.
- Follow repeat blood cx's until clear.
- Check ESR, CRP
- DC Zosyn.
- Start cefazolin 2g IV q8h.
- Continue Vancomycin pending susceptibility of Staph. aureus
Care Review
Plan reviewed with: Physician (Dr. Massey)
Total Time Spent with Patient (in minutes): 70
70 minute critical care time including review of records, face to face time with patient and family, case discussion with resizer operator Dr. Massey, management and plan of care.
--- NOTE | 2024-08-29 13:05 | PTCARENOTE ---
Report given to 3W RN. Dressing change performed as instructed by wound RN. Pt assisted to wheelchair and moved to [facility] with all belongings.
--- NOTE | 2024-08-29 13:55 | CM ---
M following re: discharge planning.
Discussed in Rounds, reviewed pt's chart, met with pt. Pt's son, daughter and son in law who live in [place] at bedside.
Pt is [place] citizen, was staying with his spouse 2SH, 2 steps to enter in [facility], has 2 supportive children. Pt stated he has [place] insurance that does not work outside of [place]. Pt does not have PCP in [facility].
CM made a referral to Medicaid specialist Kendal and she will meet with the pt and his family shortly.
D/C plan: home with services when medically stable. Return back to [place] for ongoing treatment.
CM will follow with discharge plan updates as hospitalization progresses
[2024-08-29 15:37] LABS: Hemoglobin 7.7 g/dL (13.0-18.0)
--- NOTE | 2024-08-29 19:00 | W.PN.HOSP.TC ---
Today's Communication/Plan
-
MRI of spine tomorrow
recheck labs
T&S for potential transfusion
Assessment / Plan
Assessment / Plan
Septic Shock
continues to require Pressors, though has decreased Pressor requirements
Pt only doctor as outpatient is Nigel Winston of Cardiology at [facility]
Urine Cx neg
Blood Cx +Staph aureus
input of ID appreciated
1. AVERY/Rhabdo - suspect partly due to rhabdomyolysis but unsure given duration of being down and degree of cpk elevatin and AVERY there is possibly ongoing CKD whose etiology is unclear. Patient has h/o CHF but appears euvolemic today. Not currently
on diuretics and has borderline low BPs recently. No hydronephrosis or bladder retention obvious on CT scan.
- admit to imu
- stopped IV fluids NS
- monitor strict i/os
- trend cpk
- monitor for signs of overload and may initiate diuretics if SBP > 110
- phos level, urine protein/cr,
- nephrology consultation
Creat 4.4-->5.0-->2.4-->1.1
2.AFIB RVR - known afib, was to be on apixaban but could not afford. On coreg 25 bid and aspirin. Rates in the 110s
- rehydration
- hold ac, consider restart apixaban pending decision on biopsy
- hold on Beta Blockers due to hypotension
- diltiazem gtt if needed for rate control
- cardiology consult
3. Elevated T bili and alkphos - liver/billiary mets versus non liver elevation of alkphos - most likely bone related
- 64 ggt
-check direct bili
- RUQ u/s (non-con CT)
- consider abdominal mri w/o contrast
4. Metastatic dz - Suspect elevated alkphos is due to osseus lesions from Prostatic metastatic disease. No clear primary but concern for lung, prostate, kidney, skin
- oncology consult
- check psa, cea, ca 19-9, afp
- additional imaging somewhat limited but lymph node or lesions may be biopsied
- patient prefers to complete w/u in [place] if possible
- PT evaluation
5. Pt notes weak lower extremities
Bryson raises concern for metastatic disease to the spine and would like to check MRI. Pt and are hesitant and would like to find out about transfer to [place] possibility.
Will request CM consult
6. Anemia
Hgb 10.1-->9.3-->9.6-->8.9-->8.0-->7.7
will T&S for potential transfusion tomorrow
reviewed result of CT scan with (PORSCHE Chen), out of room
Oncology has been consulted, but first order of business will be to stabilize pt
CHEST:
1. MULTIFOCAL BLASTIC OSSEOUS METASTATIC DISEASE involving the thoracic spine, ribs, and sternum.
2. Acute superior and inferior endplate fractures of T7 (either pathologic or traumatic in etiology).
3. Multiple acute and subacute right rib fractures (either pathologic or traumatic in etiology).
4. Moderate cardiomegaly.
5. Multiple small subcentimeter centrilobular pulmonary nodules in the right upper lobe which are most likely secondary to peripheral endobronchial infection. Pulmonary metastases are an alternative diagnostic possibility.
6. Minimal bilateral pleural effusions.
ABDOMEN and PELVIS:
1. SEVERE PROSTATE CANCER with extracapsular extension of malignancy and URINARY BLADDER OUTLET OBSTRUCTION.
2. Severely distended urinary bladder.
3. Moderate bilateral hydronephrosis.
4. VERY EXTENSIVE BLASTIC OSSEOUS METASTATIC DISEASE in the lumbar spine, pelvic bones, and proximal femurs.
5. Multiple pathologic fractures in the lower lumbar spine.
6. Extra osseous extension of malignancy from the sacrum and left pubic bone into the adjacent soft tissues.
7. SEVERE METASTATIC LYMPHADENOPATHY in the pelvis.
8. Moderate metastatic lymphadenopathy in the retroperitoneum.
9. Large amount of fecal material in the proximal colon.
10. Moderate splenomegaly.
DVT PPX - heparin sq placed on hold with hematuria, CCM will consider restarting
on admission, INR was 2.42/PTT 85.3-->2/3 1.85/61.3
most likely related to septic shock, will place Heparin on hold, await further input from Heme/Onc
Very complex situation on multiple aspects
Total Critical Care Time 60 minutes. I was immediately available to the patient and staff. I personally examined, reviewed labs, diagnostic images/reports, interpretations, treatment plans, discussed patient care with other providers and family
or caregivers (if patient is unable to make decisions), entered orders as appropriate and documented the medical record.
Very complex situation
Code status - full code
Anticipated Discharge: > 48 hours
Subjective/Interval History
-
Date of Service: August 29, 2024
More alert, appears more comfortable
Objective Data
-
Labs:
Laboratory Results
08/29/24
15:18
Hgb 7.7 L
Hct 23.0 L
Vital Signs:
Vital Signs
Temp Pulse Resp BP Pulse Ox
98.6 F 124 24 99/75 96
08/29/24 16:00 08/29/24 17:00 08/29/24 17:00 08/29/24 17:00 08/29/24 17:00
I&O
08/28/24 08/29/24 08/30/24
06:59 06:59 06:59
Intake Total 5978.4 / 6176.0 3493.0 / 3794.8 1901.0 / 1901.0
Output Total 2465 / 2465 1625 / 1625 295 / 295
Balance 3513.4 / 3711.0 1868.0 / 2169.8 1606.0 / 1606.0
Review of Systems
-
History Source: Patient and Family (dgt and s-i-l in room)
Constitutional: Reports Fever (98.1-->102.1-->101.2)
EENT: Reports No Symptoms Reported
Respiratory: Reports No Symptoms
Cardiac: Denies Chest Pain
Abdomen/GI: Reports Constipated (no BM in 3 weeks)
Genitourinary: Reports Other (was not urinating, ordered hernandez, drained >1000 cc)
Physical Exam
-
General: Well Developed, Well Nourished and Other (appears much less ill than when initially admitted)
HEENT: Normocephalic and Atraumatic
Respiratory: Clear to Auscultation (on shallow respirations)
Cardiac: S1/S2 and Irregular Rhythm
GI: Soft, Nontender and Nondistended
Musculoskeletal: No Clubbing, No Cyanosis and No Edema
Skin: Warm and Dry
[2024-08-29] MEDS: ANCEF 10 IV (22:20)
[2024-08-29] MEDS: SENOKOT PO (22:21)
--- NOTE | 2024-08-29 23:42 | PTCARENOTE ---
Pt politely declining to be repositioned in bed despite education. Pt encouraged to turn with assist to avoid future pressure ulcers, to keep his lungs healthy and to [place] off DVTs. Pt says 'I'm comfortable, I will turn later'. Pt is of sound mind
and is refusing at this time. Will continue to encourage movement/compliance with care and preventative measures. Pt excited to feel deep painful stimuli in RLE and slight movement noted 1/5. LLE remains 0/5. Please see full assessment for details.
Will monitor.
[2024-08-30] VITALS (43 sets, daily range): BP systolic 85–124; BP diastolic 49–101; BMI 35.1
--- NOTE | 2024-08-30 04:00 | PTCARENOTE ---
Pt in agreement to turning q2h at this time. Compliant with care. Emotional support provided. No change in assessment. Will monitor.
[2024-08-30] MEDS: ROXICODONE 2.5 MG PO ×4 (05:02→20:31)
[2024-08-30] MEDS: SOLU-CORTEF 50 MG IV ×4 (05:03→23:50)
[2024-08-30] MEDS: ANCEF 10 IV ×3 (05:03→23:49)
[2024-08-30 05:19] LABS: % Basophils 0.1 % (0-2); % Eosinophils 0.1 % (0-6); % Immature Granulocytes 4.7 % (0-0.5); % Lymphocytes 21.1 % (20.5-51.1); % Monocytes 8.4 % (1.7-9.3); % Neutrophils 65.6 % (42.2-75.2); Absolute Immature Granulocytes 0.5 10^3/uL (0-0.05); Absolute Lymphocytes 2.1 10^3/uL (1.2-3.4); Absolute Monocytes 0.8 10^3/uL (0.1-0.6); Absolute Neutrophils 6.4 10^3/uL (1.4-6.5); Hematocrit 22.7 % (39.0-52.0); Hemoglobin 7.5 g/dL (13.0-18.0); Mean Corpuscular Hgb 30.5 pg (27.0-31.0); Mean Corpuscular Volume 92.3 fL (80.0-94.0); Nucleated Red Blood Cells % 0 % (-); Platelet Count 169 10^3/uL (130-400); Red Blood Cell Count 2.46 10^6/uL (4.70-6.10); Red Cell Dist. Width 13.8 % (11.5-14.5); White Blood Cell Count 9.8 10^3/uL (4.8-10.8)
[2024-08-30 05:44] LABS: Vancomycin Random 14.5 ug/ml
[2024-08-30 06:10] LABS: Blood Urea Nitrogen 50 mg/dl (9-20); Calcium 7.1 mg/dl (8.4-10.2); Carbon Dioxide 22 mmol/L (22-30); Chloride 104 mmol/L (98-107); Creatine Phosphokinase 828 U/L (55-170); Estimated Creatinine Clearance 64 ml/min; Glucose 131 mg/dl (70-99); Sodium 132 mmol/L (135-145); eGFR 51.67
--- NOTE | 2024-08-30 08:00 | PTCARENOTE ---
Assumed care of patient. Pt rec'd A&Ox3. Pleasant. Moves upper extremities w/o issue. Able to wiggle toes on right foot but no movement on left. Sensation is fair. Multipodis boots on. Foot drop noted. S1 S2 irregular w/ afib on monitor.
+PP. +2 generalized edema. On R/A...sats 97%. Lungs diminished. Encouraged coughing and deep breathing. Abdomen obese...+BS. Incontinent of liquid brown stool. Regular diet...thin liquids...poor appetite. Urology hernandez draining yellow urine
w/ sediment. Skin pale...right flank purplish yellow ecchymosis noted. Sacral dressing intact. Right DL PICC w/ bharti gtt infusing...see intervention. VS documented. Call mcfarlane within reach. Will continue to monitor.
[2024-08-30 08:01] LABS: Erythrocyte Sed Rate 93 mm/hour (0-20)
--- NOTE | 2024-08-30 08:41 | W.PN.ONC ---
Today's Communication / Plan
-
Complete inpatient MRI to evaluate for spinal cord compression
Continue to wean off pressors as indicated per grip
If MRI positive for spinal cord compression, recommend high dose of dexamethasone
Impression
Impression
- Rhabdomyolysis
- AVERY
- blastic bone metastases
- prostate cancer with bladder obstruction, extensive pelvic, retroperitoneal adenopathy; PSA > 2000, alk phos > 2400
- bilateral hydronephrosis
- leg weakness and hyperreflexia on exam
Plan
Plan
Had extensive conversation with patient regarding his goals of care and insurance difficulties due to him having no [place] insurance.
Patient states he would like to improve from this acute illness and then return to [place] for oncologic management. However, ultimately patient is agreeable to inpatient MRI, he understands the urgency and severity of the potential cord compression
Pending MRI to evaluate for cord compression to explain leg weakness
Spoke to inpatient MRI and radiologist, urged them to have MRI completed today if possible. Unfortunately only 1 MRI machine is running currently
CM has been consulted to comment on financial implications of inpatient MRI (has [place] insurance)
He's been started on solumedrol for possible adrenal insufficiency (steroids are first line treatment for cord compression as well, though will need higher doses (and dexamethasone) if confirmed)
Started bicalutamide. Rec adding Lupron or similar in about ~2 weeks (details TBD)
Will continue to follow
Subjective/Objective
Subjective/Objective
Vital Signs:
Vital Signs
Temp Pulse Resp BP Pulse Ox
98.7 F 85 12 107/64 95
08/30/24 03:15 08/30/24 05:45 08/30/24 05:45 08/30/24 05:30 08/30/24 05:45
Lab Results:
Laboratory Data
WBC 9.8 10^3/uL (4.8-10.8) 08/30/24 05:05
Hgb 7.5 g/dL (13.0-18.0) L 08/30/24 05:05
Plt Count 169 10^3/uL (130-400) 08/30/24 05:05
PT 21.5 Sec (11.4-14.6) H 08/28/24 03:57
INR 1.85 08/28/24 03:57
APTT 61.3 Sec (23.4-35.0) H 08/28/24 03:57
eGFR 51.67 08/30/24 05:05
[2024-08-30] MEDS: PROTONIX 40 MG PO (08:46)
[2024-08-30] MEDS: CASODEX 50 MG PO (08:46)
--- NOTE | 2024-08-30 09:59 | W.PN.CARDCBS ---
Today's Communication / Plan
-
Remains in rate controlled aFib.
Given rising cr, will hold further Digoxin at this time. He did receive a Digoxin load Feb 4
BP support with IV Gregory and he is off IV Levophed. He has been on Vasopressin
Cont to hold Coreg
Cont attempts to wean IV pressors.
He is getting evaluation for cord compression with met prostate cancer and MRI is pending.
Given hypotension, avoiding diuresis at this time.
Antibiotics and hydrocortizone as per primary service.
Case management to address issues regarding [place] citizenship and lack of insurance here in the states.
Discussed with nursing.
Impression / Plan
-
.
Impression:
- Septic shock
- Rhabdomyolysis
- AVERY
- Atrial fibrillation with rapid ventricular rate ( describes permanent atrial fibrillation)
- History of cardiomyopathy/heart failure with recovered ejection fraction
- Anemia
- Thrombocytopenia
- blastic bone metastases
- prostate cancer with bladder obstruction, extensive pelvic, retroperitoneal adenopathy
- bilateral hydronephrosis
-Possible spinal cord compression
Echo 08/28/2024: Dilated LV, EF 55-60%, possible basal and mid inferior akinesis, LVH, moderate mitral regurgitation, MAC, moderately dilated left atrium, mild to moderate tricuspid regurgitation, pulmonary artery pressure 46 mmHg above mean right
atrial pressure, normal RV
Plan:
Remains in rate controlled aFib.
Given rising cr, will hold further Digoxin at this time. He did receive a Digoxin load Feb 4
BP support with IV Gregory and he is off IV Levophed. He has been on Vasopressin
Cont to hold Coreg
Cont attempts to wean IV pressors.
He is getting evaluation for cord compression with met prostate cancer and MRI is pending.
Given hypotension, avoiding diuresis at this time.
Antibiotics and hydrocortizone as per primary service.
Case management to address issues regarding [place] citizenship and lack of insurance here in the states.
Discussed with nursing.
CCT: 31 min
Progress Note - Traveling Inventory Associate
Subjective
Date of Service: August 30, 2024
Pt seen and examined. No cp.
Objective
Labs:
08/30/24 05:05
08/30/24 05:05
Labs
Hgb 7.5 g/dL (13.0-18.0) L 08/30/24 05:05
Hct 22.7 % (39.0-52.0) L 08/30/24 05:05
Plt Count 169 10^3/uL (130-400) 08/30/24 05:05
PT 21.5 Sec (11.4-14.6) H 08/28/24 03:57
INR 1.85 08/28/24 03:57
APTT 61.3 Sec (23.4-35.0) H 08/28/24 03:57
Sodium 132 mmol/L (135-145) L 08/30/24 05:05
Potassium 4.0 mmol/L (3.5-5.1) 08/30/24 05:05
BUN 50 mg/dl (9-20) H 08/30/24 05:05
Creatinine 1.5 mg/dL (0.7-1.3) H 08/30/24 05:05
Glucose 131 mg/dl (70-99) H 08/30/24 05:05
Vital Signs and I&O:
Vital Signs
Temp Pulse Resp BP Pulse Ox
98 F 85 12 107/64 95
08/30/24 08:30 08/30/24 05:45 08/30/24 05:45 08/30/24 05:30 08/30/24 05:45
Vital Signs
Temp Pulse Resp BP Pulse Ox
98 F 85 12 107/64 95
08/30/24 08:30 08/30/24 05:45 08/30/24 05:45 08/30/24 05:30 08/30/24 05:45
Intake & Output
08/28/24 08/29/24 08/30/24 08/31/24
06:59 06:59 06:59 06:59
Intake Total 5978.4 / 6176.0 3493.0 / 3794.8 3031.0 / 3031.0
Output Total 2465 / 2465 1625 / 1625 470 / 470
Balance 3513.4 / 3711.0 1868.0 / 2169.8 2561.0 / 2561.0
Physical Exam
Physical Exam
General: No acute distress, AAOX3
Neck: Negative JVD
Heart: Irregularly irregular, Negative S3 positive S1/S2, Negative S4, No murmur
Lungs: CTA b/l, negative wheezes/rales/rhonchi
Abd: Positive BS, NT/ND, neg rebound/rigidity/guarding
Ext: Negative cyanosis/clubbing/edema
Neuro: nonfocal
--- NOTE | 2024-08-30 11:42 | W.PN.ID1 ---
Date of Service
Date of Service: August 30, 2024
Today's Communication
Continue cefazolin.
Assessment / Plan
# Staph aureus (MSSA) bacteremia (2 of 2 bottles)
# Fever resolving
# Autonomic vs Septic shock on 3 pressors
# 10 month h/o progressive BLE weakness
# New finding of prostate ca (likely stage IV) with extensive mets entire spine, pelvis, lymph nodes
# Bladder outlet obstruction from prostate ca, hernandez placed
# AVERY, resolved
# Uninsured
- Ucx neg.
- TTE no gross vege; thickened MV leaflet, mod MR
- CXR no pneumonia
- MRI C/T/L spine wo and with contrast to assess for cord compression/abscess. (MRI in repair at this time)
- Repeat blood cx's x 2 neg so far
- CRP 265. ESR 36
- Continue cefazolin 2g IV q8h.
- DC Vancomycin.
Chief Complaint
-: Fever and Bacteremia
Subjective / Review of Systems
Feels OK today. Aware MRI is down.
Vital Signs / Physical Exam
Vital Signs
Vital Signs
Temp Pulse Resp BP Pulse Ox
98 F 85 12 107/64 95
08/30/24 08:30 08/30/24 05:45 08/30/24 05:45 08/30/24 05:30 08/30/24 05:45
Physical Exam
Constitutional: No Acute Distress
Eyes: Sclera Anicteric
Cardiovascular: Regular Rate and S1/S2
Pulmonary: Clear
Gastrointestinal: Soft, Non Tender, Non Distended and Normal Bowel Sounds
Genito-Urinary: Hernandez and Clear Urine
Neurological: AO x 3
Objective Data
Lab Data
Lab Results
08/30/24 05:05
ESR 93 mm/hour (0-20) H 02/05/25 05:05
PT 21.5 Sec (11.4-14.6) H 08/28/24 03:57
INR 1.85 08/28/24 03:57
APTT 61.3 Sec (23.4-35.0) H 08/28/24 03:57
Estimated Creat Clear 64 ml/min 08/30/24 05:05
Total Bilirubin 1.6 mg/dl (0.2-1.3) H 08/28/24 03:57
GGT 64 U/L (15-73) 08/27/24 06:54
AST 238 U/L (17-59) H 08/28/24 03:57
ALT 28 U/L (0-50) 08/28/24 03:57
Alkaline Phosphatase > 2400 U/L (38-126) H 08/28/24 03:57
C-Reactive Protein 264.90 mg/L (0.0-10.00) H 08/29/24 04:47
Most recent labs reviewed.
Micro Results:
08/29/24 10:21 Blood Culture - Preliminary
Blood/Venous No Growth in 24 hours- Final report to follow
08/29/24 10:21 Blood Culture - Preliminary
Blood/Venous No Growth in 24 hours- Final report to follow
08/27/24 13:31 Blood Culture - Final
Blood/Venous S aureus-Methicillin Sensitive
Gram Stain - Final
08/27/24 13:51 Urine Culture - Final
Urine NO GROWTH
08/27/24 10:30 Urine Culture - Final
Urine NO GROWTH
08/26/24 23:57 Influenza Types A & B (WINTER) - Final
Nasal Swab Negative for Influenza A & B, NAAT
Negative results must be combined with clinical observations
and patient history.
Nucleic Acid Amplification test (NAAT)performed on the
[employer] platform.
08/27/24 CT C-spine: MULTIFOCAL BLASTIC OSSEOUS METASTATIC DISEASE (C4 vertebral body, right C4 lateral mass, and posterior 3rd ribs bilaterally). Moderate to severe discogenic degenerative disease at C2/C3 with a moderate-sized disc-osteophyte
complex causing mild spinal cord compression and central canal stenosis.
08/27/24 CT c/a/p: SEVERE PROSTATE CANCER with extracapsular extension of malignancy and URINARY BLADDER OUTLET OBSTRUCTION.
2. Severely distended urinary bladder.
3. Moderate bilateral hydronephrosis.
4. VERY EXTENSIVE BLASTIC OSSEOUS METASTATIC DISEASE in the lumbar spine, pelvic bones, and proximal femurs.
5. Multiple pathologic fractures in the lower lumbar spine.
6. Extra osseous extension of malignancy from the sacrum and left pubic bone into the adjacent soft tissues.
7. SEVERE METASTATIC LYMPHADENOPATHY in the pelvis.
8. Moderate metastatic lymphadenopathy in the retroperitoneum.
08/27/24 CXR: Mild cardiomegaly. Midthoracic likely T7 partial vertebral compression fracture, incompletely evaluated on this study.
--- NOTE | 2024-08-30 12:00 | PTCARENOTE ---
No major changes in physical assessment. Pt remains on R/A...sats 98%. Gregory gtt @ 40mcg...see intervention. Family at bedside.
--- NOTE | 2024-08-30 12:35 | W.PN.INTV ---
Today's Communication / Plan
Recommendations
Wean off vasopressors currently on Gregory-Synephrine low-dose
Continue hydrocortisone stress doses for now
MRI thoracic and lumbar are pending.
Continue cefazolin
Follow H&H
Start heparin prophylaxis 5000 every 12 and monitor for bleeding
Prognosis is guarded
Assessment
-
64-year-old male with history of atrial fibrillation, history of nonischemic cardiomyopathy follows cardiology at [facility], 100 pound weight loss over the past year, has not had a bowel movement for 3 weeks according to , found with mental
status changes, found down at least throughout the day. Upon arrival to [facility], found to be in acute renal failure, rhabdomyolysis, hypotensive. Imaging suggested old moderate size cortical stroke, metastatic lesions throughout the
sternum, ribs, spine, and significant adenopathy throughout the abdomen. Patient given IV fluids, IV antibiotics, required norepinephrine. Patient brought to ICU for further management.
Septic shock
Hypotension, suspect urinary source
Acute renal insufficiency, creatinine 5.0
Hematuria, 1 L post Baeza catheter placement
Rhabdomyolysis
Anemia
Thrombocytopenia, Coagulopathy
100 pound weight loss
Elevated alkaline phosphatase greater than 2400
Constipation, no bowel movement x 3 weeks
Extensive suspected metastatic disease per imaging
Thoracic spine, ribs, sternum, sacrum, left pubic bone
Acute endplate fractures of T7
Multiple subacute, acute rib fractures
Severe metastatic adenopathy in the pelvis, retroperitoneum
Conditions present prior to admission
History of atrial fibrillation
History of nonischemic cardiomyopathy, myocarditis 20 years ago
Follows cardiology at [facility], details unclear
Family history of leukemia (brother)
History of binge alcohol, none for last year
Plan/recommendations
Remains critically ill: Vasopressor requirement improved down to only Gregory-Synephrine at this point.
-
Prior history:
Unfortunately patient has had symptoms for at least few weeks including no bowel movement for 3 weeks.
Patient has refused medical care per , only sees maintenance repairer at [facility] for atrial fibrillation and heart failure history with cardiomyopathy
He has lost 100 pounds over the last year
also describes multiple falls recently, difficulty urinating, dark urine
-
Shock, suspect multiple sources: Possibly septic, cannot rule out neurogenic as the patient now has lower extremity weakness.
Echocardiogram noted with normal LVEF. Normal RV function. No severe valvular disease.
No leukocytosis, afebrile.
Chest x-ray without infiltrates.
Urine culture negative
Blood culture positive for Staph aureus-identification pending.
Repeat blood 08/29/2024: No growth to date.
Antibiotic transition to cefazolin per infectious disease. 08/29/2024.
-
Discussed with multiple reasons for shock. Including neurogenic, I am requesting an urgent MRI of the thoracic and lumbar spine-I have discussed the urgency with his multiple times since 08/28/2024. Including permanent damage if there is
either spinal infectious versus metastatic disease with cord compression.
She is concerned about financial status the patient is uninsured and he is from [place]. We have consulted case management/social work to assist.
agreed order has been placed. MRI pending.
-
With 100 pound weight loss. Possibly this patient has some degree of relative adrenal insufficiency.
Continue hydrocortisone 50 mg IV every 6 hours empirically., As a trial. If there is no improvement on hemodynamics in the next 48 hours then we will discontinue hemodynamic seems to be improving.
Cortisol level not significantly decreased.
-
Transitioned to Gregory-Synephrine to 11/12/2024. Vasopressin discontinued.
Hopefully can be weaned off soon.
Renal function is improved. No further IV fluids.
-
Acute renal failure with rhabdomyolysis, hematuria-hematuria improved. Creatinine fluctuating.
1 L of bloody urine noted in the bladder post Baeza catheter placement
Suspect secondary to metastatic prostate cancer?
Significant pelvic and abdominal adenopathy noted on CT chest. Abdomen pelvis.
Nephrology has signed off, will call back if renal function continues to worsen.
Maintain Baeza
No dialysis required.
CK levels improved. No need to follow anymore.
-
Atrial fibrillation/history of heart failure
Continue with rate control as able.
Discontinued Levophed, transition to Gregory-Synephrine as above.
Cardiology following
No diuresis for now
Received digoxin before. Coreg on hold.
Echocardiogram: Noted with normal LVEF. Normal RV function. No severe valvular disease. Pulmonary hypertension noted
Patient also high risk for thromboembolic disease-anticoagulation on hold due to hematuria.
Unfortunately, given gross hematuria, falls, acute rib fractures, not ideal candidate for anticoagulation
-
DVT prophylaxis started 08/30/2024 heparin SQ every 12. High risk for thromboembolic disease.
Will need to monitor hemoglobin closely. No further hematuria.
Cancer related pain:
Patient also complaining of not feeling well, generalized pain. Suspect secondary to metastatic osseous disease
Dilaudid as needed for pain
Oncology following the patient to start therapy 08/29/2024.
Difficult situation. Patient will need to go back to [place] and skin oncology to get further care. Case discussed with oncology 08/30/2024.
Worsening anemia: Suspect acute blood loss after hematuria as well as bone marrow failure from cancer.
DVT prophylaxis: Continue SCDs. Start heparin subcu 08/30/2024. Follow hemoglobin closely.
GI prophylaxis: Continue Protonix
-
Reviewed with critical care nursing, primary service, consultants.
-
Dr. Massey updated and children at the bedside 08/28/2024 and 08/29/2024, 08/30/2024. Remains full code.
Case discussed with primary team, cardiology and oncology as well.
-
Difficult situation, patient is from [place]. He is uninsured here. Unclear whether his going to be able to continue with care in the [place]. Unable to be transferred to [place] as he is critically ill.
-
Critical care statement: A total of 36 minutes of critical care time was provided for this patient today. This includes management of unstable vital signs, evaluation of the patient at bedside, reviewing the patient's pertinent medical records
including ventilator settings, arterial blood gases, radiographs, microbiology, laboratory evaluations and discussion with primary team, critical care nursing, and respiratory therapy.
Subjective Dataa
Subjective Data
Date of Service:
Date of Service: August 30, 2024
Chief Complaint: Clinical Neuropsychologist Follow Up (Septic shock/obstructive uropathy/rapid atrial fibrillation)
Subjective:
Patient offers no new complaints
Remains on low-dose vasopressors
Continues to report lower extremity weakness
Denies abdominal pain
Denies significant back pain at this point.
Review of Systems
Cardiopulmonary: Dyspnea ( Not at rest)
GI: Abdominal Pain (n) and Nausea (n)
Objective Data
Data Reviewed
Vital Signs / I&O / Oxygen:
Vital Signs
Temp Pulse Resp BP Pulse Ox
97.9 F 77 11 105/62 96
08/30/24 11:44 08/30/24 12:00 08/30/24 12:00 08/30/24 12:00 08/30/24 12:00
Intake and Output
08/29/24 08/30/24 08/31/24
06:59 06:59 06:59
Intake Total 3493.0 / 3794.8 3031.0 / 3054.0 126 / 126
Output Total 1625 / 1625 470 / 470
Balance 1868.0 / 2169.8 2561.0 / 2584.0 126 / 126
SaO2 96
Physical Exam
General: Comfortable
HEENT: Normocephalic
Cardiovascular: S1-S2 and Peripheral Edema (Both extremities)
Respiratory: Non-Labored Respirations
GI: Soft and Non Distended
Neurology: Awake, AO x 3 and Other (Lower extremity weak 1/5. Decreased sensation.)
Skin: Warm
Labs/Micro/Reports
Lab Data
08/30/24 05:05
Microbiology
08/29/24 10:21 Blood/Venous Blood Culture - Preliminary
No Growth in 24 hours- Final report to follow
08/29/24 10:21 Blood/Venous Blood Culture - Preliminary
No Growth in 24 hours- Final report to follow
08/27/24 13:31 Blood/Venous Blood Culture - Final
S aureus-Methicillin Sensitive
08/27/24 13:31 Blood/Venous Gram Stain - Final
08/27/24 13:51 Urine Urine Culture - Final
NO GROWTH
08/27/24 10:30 Urine Urine Culture - Final
NO GROWTH
[2024-08-30] MEDS: HEPARIN 5000 UNITS SC ×2 (12:43→20:32)
--- NOTE | 2024-08-30 14:34 | CM ---
CM following re: discharge planning.
Discussed in Rounds, reviewed pt's chart, met with pt. Per Rounds meeting, weaning off vasopressors, continue supportive care, prognosis guarded.
Pt is [place] citizen, was staying with his spouse 2SH, 2 steps to enter in [facility], has 2 supportive children. Pt stated he has [place] insurance that does not work outside of [place]. Pt does not have PCP in [facility]. Pt's daughter and son left
yesterday to [place].
[facility] specialist following.
D/C plan: home with services when medically stable. Return back to [place] for ongoing treatment.
CM will follow with discharge plan updates as hospitalization progresses
[2024-08-30 15:23] LABS: Hematocrit 22.5 % (39.0-52.0); Hemoglobin 7.5 g/dL (13.0-18.0)
--- NOTE | 2024-08-30 16:00 | PTCARENOTE ---
Pt reassessed...no changes. Gregory gtt off...will monitor VS. PO lindy provided for mid back pain...pt sleeping comfortably at present. Call mcfarlane within reach.
--- NOTE | 2024-08-30 17:49 | W.PN.HOSP.TC ---
Today's Communication/Plan
-
MRI
continue Casodex
Assessment / Plan
Assessment / Plan
Septic Shock
continues to require Pressors, though has decreased Pressor requirements
Pt only doctor as outpatient is Nigel Winston of Cardiology at [facility]
Urine Cx neg
Blood Cx +Staph aureus. MSSA 2 out of 2 bottles
input of ID appreciated
1. AVERY/Rhabdo - suspect partly due to rhabdomyolysis but unsure given duration of being down and degree of cpk elevatin and AVERY there is possibly ongoing CKD whose etiology is unclear. Patient has h/o CHF but appears euvolemic today. Not currently
on diuretics and has borderline low BPs recently. No hydronephrosis or bladder retention obvious on CT scan.
- admit to imu
- stopped IV fluids NS
- monitor strict i/os
- trend cpk
- monitor for signs of overload and may initiate diuretics if SBP > 110
- phos level, urine protein/cr,
- nephrology consultation
Creat 4.4-->5.0-->2.4-->1.1-->1.5
2.AFIB RVR - known afib, was to be on apixaban but could not afford. On coreg 25 bid and aspirin. Rates in the 110s
- rehydration
- consider restart apixaban pending decision on biopsy
- hold on Beta Blockers due to hypotension
- diltiazem gtt if needed for rate control
- cardiology consult
3. Elevated T bili and alkphos - liver/billiary mets versus non liver elevation of alkphos - most likely bone related
- 64 ggt
-check direct bili
- RUQ u/s (non-con CT)
- consider abdominal mri w/o contrast
4. Metastatic dz - Suspect elevated alkphos is due to osseus lesions from Prostatic metastatic disease.
- oncology consult
- PSA >2000, cea 1.77, ca 19-9 17, afp 4
- additional imaging somewhat limited but lymph node or lesions may be biopsied
- patient prefers to complete w/u in [place] if possible
- PT evaluation. MRI of spine to be done now
5. Pt notes weak lower extremities
Bryson raises concern for metastatic disease to the spine and would like to check MRI.
Will request CM consult
6. Anemia
Acute blood loss anemia with baseline chronic anemia of chronic disease (most likely related to tumor burden)
Hgb 10.1-->9.3-->9.6-->8.9-->8.0-->7.7-->7.5-->7.5
will T&S for potential transfusion tomorrow
CHEST:
1. MULTIFOCAL BLASTIC OSSEOUS METASTATIC DISEASE involving the thoracic spine, ribs, and sternum.
2. Acute superior and inferior endplate fractures of T7 (either pathologic or traumatic in etiology).
3. Multiple acute and subacute right rib fractures (either pathologic or traumatic in etiology).
4. Moderate cardiomegaly.
5. Multiple small subcentimeter centrilobular pulmonary nodules in the right upper lobe which are most likely secondary to peripheral endobronchial infection. Pulmonary metastases are an alternative diagnostic possibility.
6. Minimal bilateral pleural effusions.
ABDOMEN and PELVIS:
1. SEVERE PROSTATE CANCER with extracapsular extension of malignancy and URINARY BLADDER OUTLET OBSTRUCTION.
2. Severely distended urinary bladder.
3. Moderate bilateral hydronephrosis.
4. VERY EXTENSIVE BLASTIC OSSEOUS METASTATIC DISEASE in the lumbar spine, pelvic bones, and proximal femurs.
5. Multiple pathologic fractures in the lower lumbar spine.
6. Extra osseous extension of malignancy from the sacrum and left pubic bone into the adjacent soft tissues.
7. SEVERE METASTATIC LYMPHADENOPATHY in the pelvis.
8. Moderate metastatic lymphadenopathy in the retroperitoneum.
9. Large amount of fecal material in the proximal colon.
10. Moderate splenomegaly.
DVT PPX - on admission, INR was 2.42/PTT 85.3-->2/3 1.85/61.3
most likely related to septic shock, Heparin resumed 5k q12h await further input from Heme/Onc
Very complex situation on multiple aspects
Code status - full code
Anticipated Discharge: > 48 hours
Subjective/Interval History
-
Date of Service: August 30, 2024
Still feels weak
Objective Data
-
Labs:
Laboratory Results
08/30/24 08/30/24
05:05 15:08
Hgb 7.5 L
Hct 22.5 L
Sodium 132 L
Potassium 4.0
Chloride 104
Carbon Dioxide 22
BUN 50 H
Creatinine 1.5 H
Glucose 131 H
Calcium 7.1 L
Vital Signs:
Vital Signs
Temp Pulse Resp BP Pulse Ox
98.2 F 91 17 102/53 96
08/30/24 15:38 08/30/24 16:15 08/30/24 16:15 08/30/24 16:00 08/30/24 16:15
I&O
08/29/24 08/30/24 08/31/24
06:59 06:59 06:59
Intake Total 3493.0 / 3794.8 3031.0 / 3054.0 404 / 404
Output Total 1625 / 1625 470 / 470
Balance 1868.0 / 2169.8 2561.0 / 2584.0 404 / 404
Review of Systems
-
History Source: Patient and Family (dgt and s-i-l in room)
Constitutional: Reports Fever (98.1-->102.1-->101.2-->100.9-->afebrile since 08/29 13:03)
EENT: Reports No Symptoms Reported
Respiratory: Reports No Symptoms
Cardiac: Denies Chest Pain
Abdomen/GI: Reports Constipated (no BM in 3 weeks)
Genitourinary: Reports Other (was not urinating, ordered hernandez, drained >1000 cc)
Physical Exam
-
General: Well Developed, Well Nourished and Other (appears much less ill than when initially admitted)
HEENT: Normocephalic and Atraumatic
Respiratory: Clear to Auscultation (on shallow respirations)
Cardiac: S1/S2 and Irregular Rhythm
GI: Soft, Nontender and Nondistended
Musculoskeletal: No Clubbing, No Cyanosis and No Edema
Skin: Warm and Dry
--- NOTE | 2024-08-30 20:00 | PTCARENOTE ---
Received pt. at 1900. Pt. currently awake, alert, and oriented. PRN medications are being given for pain, see MAR. Afebrile. Heart rhythm afib (known). Blood pressure normotensive. Currently on room air. Incontinent of bowel. Baeza catheter in place
per urology determination. Skin as documented. Discussed plan of care with patient. Vital signs stable at this time.
[2024-08-30] MEDS: DILAUDID 0.5 MG IV (23:50)
[2024-08-30] MEDS: SENOKOT PO (23:55)
[2024-08-31] VITALS (26 sets, daily range): BP systolic 88–119; BP diastolic 45–79; BMI 36.3
--- NOTE | 2024-08-31 | PTCARENOTE ---
Pt. assessment unchanged. MRI performed earlier in shift, pt. tolerated well. Currently sleeping. Appears comfortable. Vital signs stable at this time.
--- NOTE | 2024-08-31 02:35 | W.PN.UPDATE ---
Update Note
Progress Note Update
MRI showed compression of spinal cord T2 due to large tumor, Neurosurgical consent placed.
[2024-08-31] MEDS: SOLU-CORTEF 50 MG IV (03:44)
--- NOTE | 2024-08-31 04:00 | PTCARENOTE ---
Pt. assessment remains unchanged. AM labs drawn. Vital signs stable at this time.
[2024-08-31 04:18] LABS: Hematocrit 22.2 % (39.0-52.0); Hemoglobin 7.4 g/dL (13.0-18.0); Mean Corp Hgb Conc. 33.3 g/dL (33.0-37.0); Mean Corpuscular Hgb 30.7 pg (27.0-31.0); Mean Corpuscular Volume 92.1 fL (80.0-94.0); Platelet Count 175 10^3/uL (130-400); Red Blood Cell Count 2.41 10^6/uL (4.70-6.10); Red Cell Dist. Width 13.7 % (11.5-14.5); White Blood Cell Count 8.4 10^3/uL (4.8-10.8)
[2024-08-31 04:24] LABS: INR 1.39; PT 17.5 Sec (11.4-14.6)
[2024-08-31 04:25] LABS: APTT 37.4 Sec (23.4-35.0)
[2024-08-31 04:43] LABS: ALT (SGPT) 51 U/L (0-50); AST (SGOT) 128 U/L (17-59); Albumin 1.9 g/dl (3.5-5.0); Alkaline Phosphatase 1050 U/L (38-126); Blood Urea Nitrogen 61 mg/dl (9-20); Calcium 7.4 mg/dl (8.4-10.2); Carbon Dioxide 19 mmol/L (22-30); Chloride 101 mmol/L (98-107); Estimated Creatinine Clearance 35 ml/min; Glucose 135 mg/dl (70-99); Sodium 130 mmol/L (135-145); Total Bilirubin 0.7 mg/dl (0.2-1.3); Total Protein 4.1 g/dl (6.3-8.2); eGFR 24.43
[2024-08-31] MEDS: ANCEF 10 IV ×2 (05:07→13:07)
[2024-08-31] MEDS: CALCIUM GLUCONATE 100 IV (05:18)
[2024-08-31 07:10] LABS: % Basophils 0.1 % (0-2); % Immature Granulocytes 7.8 % (0-0.5); % Lymphocytes 20.5 % (20.5-51.1); % Monocytes 7.8 % (1.7-9.3); % Neutrophils 63.8 % (42.2-75.2); Absolute Immature Granulocytes 0.7 10^3/uL (0-0.05); Absolute Lymphocytes 1.7 10^3/uL (1.2-3.4); Absolute Monocytes 0.7 10^3/uL (0.1-0.6); Absolute Neutrophils 5.3 10^3/uL (1.4-6.5); Nucleated Red Blood Cells % 0 % (-)
[2024-08-31] MEDS: PROTONIX 40 MG PO (08:06)
[2024-08-31] MEDS: HEPARIN 5000 UNITS SC (08:07)
[2024-08-31] MEDS: CASODEX 50 MG PO (08:07)
--- NOTE | 2024-08-31 08:30 | PTCARENOTE ---
Received pt. at 0700. Pt. currently awake, alert, and oriented. Afebrile. Heart rhythm afib. Blood pressure normotensive. Currently on room air. Baeza catheter in place per urology determination. Skin as documented. Discussed plan of care with
patient. Vital signs stable at this time.
[2024-08-31] MEDS: LR 500 IV (09:13)
--- NOTE | 2024-08-31 09:39 | W.PN.CARDCBS ---
Today's Communication / Plan
-
Afib is rate controlled of AV argenis blockers, continue to monitor on tele
Impression / Plan
-
[facility]ocom[facility]
Impression:
- Septic shock
- Rhabdomyolysis
- AVERY
- Atrial fibrillation with rapid ventricular rate ( describes permanent atrial fibrillation)
- History of cardiomyopathy/heart failure with recovered ejection fraction
- Anemia
- Thrombocytopenia
- blastic bone metastases
- prostate cancer with bladder obstruction, extensive pelvic, retroperitoneal adenopathy
- bilateral hydronephrosis
-Possible spinal cord compression
Echo 08/28/2024: Dilated LV, EF 55-60%, possible basal and mid inferior akinesis, LVH, moderate mitral regurgitation, MAC, moderately dilated left atrium, mild to moderate tricuspid regurgitation, pulmonary artery pressure 46 mmHg above mean right
atrial pressure, normal RV
Plan:
He is getting evaluation for cord compression with met prostate cancer and MRI is pending
Steroids per primary service
Remains in rate controlled AFib of AV argenis blockers, goal HR <110 bpm
Given marginal BP would hold on resuming Coreg at this time, would eventually add back at a lower dose
With marginal BP and worsening renal function would hold off on diuresis for now and monitor BUN/Cr and UOP
Discussed with at bedside
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
Subjective
Date of Service: August 31, 2024
Per chart review concern for cord compression on MRI. Patient tells me sensation in his lower extremities is improving today.
No palpitations. No chest pain. Breathing is comfortable.
Objective
Labs:
08/31/24 03:51
08/31/24 03:51
Labs
Hgb 7.4 g/dL (13.0-18.0) L 08/31/24 03:51
Hct 22.2 % (39.0-52.0) L 08/31/24 03:51
Plt Count 175 10^3/uL (130-400) 08/31/24 03:51
PT 17.5 Sec (11.4-14.6) H 08/31/24 03:51
INR 1.39 08/31/24 03:51
APTT 37.4 Sec (23.4-35.0) H 08/31/24 03:51
Sodium 130 mmol/L (135-145) L 08/31/24 03:51
Potassium 4.0 mmol/L (3.5-5.1) 08/31/24 03:51
BUN 61 mg/dl (9-20) H 08/31/24 03:51
Creatinine 2.8 mg/dL (0.7-1.3) H 08/31/24 03:51
Glucose 135 mg/dl (70-99) H 08/31/24 03:51
Vital Signs and I&O:
Vital Signs
Temp Pulse Resp BP Pulse Ox
98.0 F 83 18 97/48 97
08/31/24 07:25 08/31/24 09:00 08/31/24 09:00 08/31/24 09:00 08/31/24 09:00
Vital Signs
Temp Pulse Resp BP Pulse Ox
98.0 F 83 18 97/48 97
08/31/24 07:25 08/31/24 09:00 08/31/24 09:00 08/31/24 09:00 08/31/24 09:00
Intake & Output
08/29/24 08/30/24 08/31/24 09/01/24
06:59 06:59 06:59 06:59
Intake Total 3493.0 / 3794.8 3031.0 / 3054.0 519 / 524
Output Total 1625 / 1625 470 / 470 105 / 105
Balance 1868.0 / 2169.8 2561.0 / 2584.0 414 / 419
Physical Exam
Physical Exam
Gen: NAD, AAOx3
HEENT: NC/AT, sclera anicteric
Neck: No JVD
CV: irregularly irregular, NL s1/s2
Lungs: CTAB on RA
Abd: S/ND
Ext: Nonpitting LE edema
Skin: Warm, dry
[2024-08-31] MEDS: NSS 1000 IV (10:00)
[2024-08-31] MEDS: DECADRON 8 MG IV (10:00)
--- NOTE | 2024-08-31 10:45 | W.PN.ID1 ---
Date of Service
Date of Service: August 31, 2024
Today's Communication
See below
Assessment / Plan
# Staph aureus (MSSA) bacteremia (2 of 2 bottles on 08/27/24); 08/29/24 bcx's x 2 negative
# Fever resolved
# s/p Septic shock, off 3 pressors
# New finding of prostate ca (likely stage IV) with extensive mets entire spine, pelvis, ribs lymph nodes
# T5-T6, T6 cord compression from extensive bony metastatic disease
# Bladder outlet obstruction from prostate ca, heranndez placed
# AVERY, recurred
# Afib with RVR
- Ucx neg.
- TTE no gross vege
- CXR no pneumonia
- 08/29/24 Repeat blood cx's x 2 neg tod ate
- MRI C/T/L spine wo and with contrast: T5-T6 cord compression from metastatic ca; no infectious discitis/osteo
On steroid.
Neurosurgery following
- Consider NAJMA for MSSA bacteremia of unclear source
- Continue cefazolin 2g IV q8h (d3)
Chief Complaint
-: Fever and Bacteremia
Subjective / Review of Systems
at bedside. Pt without complaints.
Vital Signs / Physical Exam
Vital Signs
Vital Signs
Temp Pulse Resp BP Pulse Ox
98.1 F 90 10 110/74 96
08/31/24 08:05 08/31/24 10:30 08/31/24 10:30 08/31/24 10:00 08/31/24 10:30
Physical Exam
Constitutional: No Acute Distress and Comfortable
Eyes: Sclera Anicteric
Cardiovascular: Irregular Rate and S1/S2
Pulmonary: Clear
Gastrointestinal: Soft, Non Tender, Non Distended and Normal Bowel Sounds
Genito-Urinary: Hernandez and Clear Urine
Neurological: AO x 3
Objective Data
Lab Data
Lab Results
08/31/24 03:51
08/31/24 03:51
ESR 93 mm/hour (0-20) H 08/30/24 05:05
PT 17.5 Sec (11.4-14.6) H 08/31/24 03:51
INR 1.39 08/31/24 03:51
APTT 37.4 Sec (23.4-35.0) H 08/31/24 03:51
Estimated Creat Clear 35 ml/min 08/31/24 03:51
Total Bilirubin 0.7 mg/dl (0.2-1.3) 08/31/24 03:51
GGT 64 U/L (15-73) 08/27/24 06:54
AST 128 U/L (17-59) H 08/31/24 03:51
ALT 51 U/L (0-50) H 08/31/24 03:51
Alkaline Phosphatase 1050 U/L (38-126) H 08/31/24 03:51
C-Reactive Protein 264.90 mg/L (0.0-10.00) H 08/29/24 04:47
Most recent labs reviewed.
Micro Results:
08/29/24 10:21 Blood Culture - Preliminary
Blood/Venous No Growth in 48 hours- Final report to follow
08/29/24 10:21 Blood Culture - Preliminary
Blood/Venous No Growth in 48 hours- Final report to follow
08/27/24 13:31 Blood Culture - Final
Blood/Venous S aureus-Methicillin Sensitive
Gram Stain - Final
08/27/24 13:51 Urine Culture - Final
Urine NO GROWTH
08/27/24 10:30 Urine Culture - Final
Urine NO GROWTH
08/26/24 23:57 Influenza Types A & B (WINTER) - Final
Nasal Swab Negative for Influenza A & B, NAAT
Negative results must be combined with clinical observations
and patient history.
Nucleic Acid Amplification test (NAAT)performed on the
[employer] NOW platform.
08/29/24 MRI C/T/L spine wo and with contrast: Evidence for extensive bony metastatic disease. There is epidural extension of bony metastatic disease which is greatest at the T5-6 and T6 levels. There is significant compression of the thoracic spinal
cord at this level. Evaluation for spinal cord signal intensity abnormality is somewhat limited by motion and artifact, but there appears to be some increased T2 and STIR signal within the thoracic spinal cord at this level, suggesting myelopathic
signal. 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 Anterior soft tissue extension of neoplastic disease involving the sacrum, extending into the
presacral space. Correlating with CT examination, there is also probably some sacral neural foraminal narrowing. Correlating with CT there is also evidence for metastatic disease involving the medial iliac bones bilaterally, left greater than right.
Areas of abnormal increased T2 and STIR signal and postcontrast enhancement within the cervical spine as described, very likely representing bony metastatic disease. There is no evidence for significant compression of the cervical spinal cord.
08/27/24 CT C-spine: MULTIFOCAL BLASTIC OSSEOUS METASTATIC DISEASE (C4 vertebral body, right C4 lateral mass, and posterior 3rd ribs bilaterally). Moderate to severe discogenic degenerative disease at C2/C3 with a moderate-sized disc-osteophyte
complex causing mild spinal cord compression and central canal stenosis.
08/27/24 CT c/a/p: SEVERE PROSTATE CANCER with extracapsular extension of malignancy and URINARY BLADDER OUTLET OBSTRUCTION.
2. Severely distended urinary bladder.
3. Moderate bilateral hydronephrosis.
4. VERY EXTENSIVE BLASTIC OSSEOUS METASTATIC DISEASE in the lumbar spine, pelvic bones, and proximal femurs.
5. Multiple pathologic fractures in the lower lumbar spine.
6. Extra osseous extension of malignancy from the sacrum and left pubic bone into the adjacent soft tissues.
7. SEVERE METASTATIC LYMPHADENOPATHY in the pelvis.
8. Moderate metastatic lymphadenopathy in the retroperitoneum.
08/27/24 CXR: Mild cardiomegaly. Midthoracic likely T7 partial vertebral compression fracture, incompletely evaluated on this study.
Care Review
Plan reviewed with: Physician (Dr. Guthrie)
[2024-08-31] MEDS: ROXICODONE 2.5 MG PO (11:13)
--- NOTE | 2024-08-31 11:28 | W.PN.INTV ---
Today's Communication / Plan
Recommendations
IV fluid
Renal to reevaluate
Dexamethasone for spinal mets/cord compression
Wait for neurosurgical evaluation-May need radiation oncology. Will wait for oncology to reevaluate today-defer.
Bedrest, fall precautions until cleared by neurosurgery
Antibiotics
Follow hemoglobin
Hold heparin subcu until cleared by neurosurgery
Poor prognosis
Hopefully can transfer to telemetry. If transferred to telemetry critical care team will sign off
Assessment
-
64-year-old male with history of atrial fibrillation, history of nonischemic cardiomyopathy follows cardiology at [facility], 100 pound weight loss over the past year, has not had a bowel movement for 3 weeks according to , found with mental
status changes, found down at least throughout the day. Upon arrival to [facility], found to be in acute renal failure, rhabdomyolysis, hypotensive. Imaging suggested old moderate size cortical stroke, metastatic lesions throughout the
sternum, ribs, spine, and significant adenopathy throughout the abdomen. Patient given IV fluids, IV antibiotics, required norepinephrine. Patient brought to ICU for further management.
Shock: Multiple mechanisms possibly septic initially/neurogenic cord compression from cancer
Hypotension, suspect urinary source
MSSA bacteremia-unclear source.
Acute renal insufficiency, creatinine 5.0-improved
Hematuria, 1 L post Baeza catheter placement
Rhabdomyolysis-improved
Lower extremity weakness: MRI with thoracic spine spine compression as well as sacral invasion of the spinal canal.
Anemia-blood loss and also bone marrow suppression from cancer.
Thrombocytopenia, Coagulopathy
100 pound weight loss-cachexia from malignancy
Elevated alkaline phosphatase greater than 2400
Constipation, no bowel movement x 3 weeks
Extensive suspected metastatic disease per imaging
Thoracic spine, ribs, sternum, sacrum, left pubic bone
Acute endplate fractures of T7
Multiple subacute, acute rib fractures
Severe metastatic adenopathy in the pelvis, retroperitoneum
Conditions present prior to admission
History of atrial fibrillation
History of nonischemic cardiomyopathy, myocarditis 20 years ago
Follows cardiology at [facility], details unclear
Family history of leukemia (brother)
History of binge alcohol, none for last year
Plan/recommendations
Hemodynamically improved
Vasopressor been discontinued since yesterday afternoon
Afebrile
Appears nontoxic
-
Shock has resolved. Off vasopressor since 08/30/2024
Shock, suspect multiple sources: Possibly septic, cannot rule out neurogenic as the patient now has lower extremity weakness.
Echocardiogram noted with normal LVEF. Normal RV function. No severe valvular disease.
No leukocytosis, afebrile.
Chest x-ray without infiltrates.
Urine culture negative
MSSA bacteremia x 1.
Repeat blood 08/29/2024: No growth to date.
Antibiotic transition to cefazolin per infectious disease. 08/29/2024. MRI of the spine without discitis or abscess.
ID correspondence reviewed to consider NAJMA.
-
Discussed with multiple reasons for shock. Including neurogenic, I am requesting an urgent MRI of the thoracic and lumbar spine-I have discussed the urgency with his multiple times since 08/28/2024. Including permanent damage if there is
either spinal infectious versus metastatic disease with cord compression.
She was concerned about financial status the patient is uninsured and he is from [place]. case management/social work to assist.
Finally she agreed-MRI was performed overnight and it demonstrated thoracic level cord compression and possible sacral canal narrowing/invasion-widely metastatic bony disease on vertebral.
Neurosurgery was consulted immediately-unlikely to be a surgical candidate for preliminary report and review. Formal consult to follow.
Defer further management to oncology-whether radiation is necessary or would be beneficial or not.
I have increased steroids to dexamethasone IV, unless not necessary per neurosurgery
-
With 100 pound weight loss. Possibly this patient has some degree of relative adrenal insufficiency.
Initially on hydrocortisone for shock on vasopressors.
Cortisol level not significantly decreased.
-
Acute renal failure with rhabdomyolysis, hematuria-hematuria improved.
1 L of bloody urine noted in the bladder post Baeza catheter placement
Suspect secondary to metastatic prostate cancer?
Significant pelvic and abdominal adenopathy noted on CT chest. Abdomen pelvis.
Maintain Baeza
Initially renal function improved with IV fluids and Baeza.
Creatinine back up -suspect prerenal
Baeza in place without blockage. Doubt obstructive
Fluid bolus was given by me to 01/13/2020 5 in the morning
Maintenance IV fluids at the patient has poor p.o. intake
Discussed with renal and will see patient again 08/31/2024.
CK levels improved. No need to follow anymore.
-
Atrial fibrillation/history of heart failure-heart rate controlled.
No evidence for volume overload.
Cardiology following
No diuresis for now
Echocardiogram: Noted with normal LVEF. Normal RV function. No severe valvular disease. Pulmonary hypertension noted
Patient also high risk for thromboembolic disease-anticoagulation on hold due to hematuria.
Unfortunately, given gross hematuria, falls, acute rib fractures, not ideal candidate for anticoagulation
-
DVT prophylaxis started 08/30/2024 heparin SQ every 12. High risk for thromboembolic disease-hold 08/31/2024 in view of the spinal metastatic disease wait for neurosurgical clearance.
No further hematuria.
-
Cancer related pain:
Patient also complaining of not feeling well, generalized pain. Suspect secondary to metastatic osseous disease
Dilaudid as needed for pain
Oncology following the patient to start therapy 08/29/2024.
Difficult situation. Patient will need to go back to [place] and skin oncology to get further care. Case discussed with oncology 08/30/2024.
Worsening anemia: Suspect acute blood loss after hematuria as well as bone marrow failure from cancer.
DVT prophylaxis: Continue SCDs. Follow hemoglobin closely.
Start heparin subcu 08/30/2024-hold today in view spinal mets..
GI prophylaxis: Continue Protonix
-
Dr. Massey updated and children at the bedside 08/28/2024 and 08/29/2024, 08/30/2024, 08/31/2024. Remains full code.
Case discussed with primary team, cardiology and oncology as well.
-
Difficult situation, patient is from [place]. He is uninsured here. Unclear whether his going to be able to continue with care in the [place]. Unable to be transferred to [place] as he is critically ill.
-
At this point no additional critical care needs. If there is no plan for surgical intervention transferred to telemetry.
If transferred to telemetry critical care team will sign off.
Please call pulmonary if any respiratory issues arise.
Subjective Dataa
Subjective Data
Date of Service:
Date of Service: August 31, 2024
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
Subjective:
Patient offers no new complaints
Continues to have lower extremity weakness
Denies nausea or vomiting
Denies shortness of breath at rest
Review of Systems
GI: Abdominal Pain (n) and Nausea (n)
Neuro: Headache (n) and Dizziness (n)
Objective Data
Data Reviewed
Vital Signs / I&O / Oxygen:
Vital Signs
Temp Pulse Resp BP Pulse Ox
98.1 F 78 12 112/65 96
08/31/24 08:05 08/31/24 11:00 08/31/24 11:00 08/31/24 11:00 08/31/24 11:00
Intake and Output
08/30/24 08/31/24 09/01/24
06:59 06:59 06:59
Intake Total 3031.0 / 3054.0 519 / 524 265 / 265
Output Total 470 / 470 105 / 105
Balance 2561.0 / 2584.0 414 / 419 265 / 265
SaO2 96
Physical Exam
General: Comfortable
HEENT: Normocephalic
Cardiovascular: S1-S2 and Peripheral Edema (Both extremities)
Respiratory: Non-Labored Respirations
GI: Soft and Non Distended
Neurology: Awake, AO x 3 and Other (Lower extremity weak 1/5. Decreased sensation.)
Skin: Warm
Labs/Micro/Reports
Lab Data
08/31/24 03:51
08/31/24 03:51
Laboratory Results
08/31/24
03:51
PT 17.5 H
INR 1.39
APTT 37.4 H
Microbiology
08/29/24 10:21 Blood/Venous Blood Culture - Preliminary
No Growth in 48 hours- Final report to follow
08/29/24 10:21 Blood/Venous Blood Culture - Preliminary
No Growth in 48 hours- Final report to follow
08/27/24 13:31 Blood/Venous Blood Culture - Final
S aureus-Methicillin Sensitive
08/27/24 13:31 Blood/Venous Gram Stain - Final
08/27/24 13:51 Urine Urine Culture - Final
NO GROWTH
08/27/24 10:30 Urine Urine Culture - Final
NO GROWTH
--- NOTE | 2024-08-31 11:53 | W.PN.NEPH.PH ---
Today's Communication / Plan
-
IVF, follow labs
if no improvement reimage kidneys to f/u on bilat hydro
Assessment/Plan
-
IMP:
AVERY
Bilat hydronephrosis with distended bladder-ALSTON
Hypotension
Rhabdomyolysis
AFIB RVR
Metastatic dz - likely prostate
Significantly elevated ALP likely from bone metastases
Anemia
Hyponatremia
Plan:
A/w found down
AVERY-severe with RHabdo and obst uropathy-bilat hydro on CT, s/p hernandez
cr birgit to 1.1 however now up trending to 2.8, anuria -nephro reconsulted
agree with IVF per ICU and repeat labs
if worse likely obtain imaging of kidneys to follow bilat hydro
BP stable off pressors
Hyponatremia -monitor
avoid nephrotoxins
peripheral edema likely from severe hypoalbuminemia
abx per ID -dose renally
follow h/h, prn transfusion
NS eval
d/w ICU and nursing
d/w
f
-
-
Date of Service: August 31, 2024
CC / HPI / ROS
-
Chief Complaint:
AVERY
History of Present Illness:
Creatinine up at 2.8, hb 7.4
sodium 130, bicarb 19
Hemodynamically stable off pressors
on ancef
Review of Systems:
anuric via Hernandez
tolerating diet
no cp or sob
sig edema
Labs
-
Labs:
WBC 8.4 10^3/uL (4.8-10.8) 08/31/24 03:51
RBC 2.41 10^6/uL (4.70-6.10) L 08/31/24 03:51
Hgb 7.4 g/dL (13.0-18.0) L 08/31/24 03:51
Hct 22.2 % (39.0-52.0) L 08/31/24 03:51
Plt Count 175 10^3/uL (130-400) 08/31/24 03:51
Sodium 130 mmol/L (135-145) L 08/31/24 03:51
Potassium 4.0 mmol/L (3.5-5.1) 08/31/24 03:51
Chloride 101 mmol/L (98-107) 08/31/24 03:51
Carbon Dioxide 19 mmol/L (22-30) L 08/31/24 03:51
BUN 61 mg/dl (9-20) H 08/31/24 03:51
Creatinine 2.8 mg/dL (0.7-1.3) H 08/31/24 03:51
eGFR 24.43 08/31/24 03:51
Glucose 135 mg/dl (70-99) H 08/31/24 03:51
Calcium 7.4 mg/dl (8.4-10.2) L 08/31/24 03:51
Phosphorus 3.8 mg/dl (2.5-4.5) 08/27/24 06:54
Ufn-R-Qilzokuomtq Pept 9920 pg/ml 08/27/24 06:54
Albumin 1.9 g/dl (3.5-5.0) L 08/31/24 03:51
Physical Exam
-
Vital Signs:
Vital Signs
Temp Pulse Resp BP Pulse Ox
98.1 F 78 12 112/65 96
08/31/24 08:05 08/31/24 11:00 08/31/24 11:00 08/31/24 11:00 08/31/24 11:00
Cardiovascular:: Regular rate and rhythm
Respiratory:: Bilateral: CTA
Lung Excursion:: Normal
Abdomen:: Nontender and Soft
Bowel Sounds:: Decreased
Extremity Edema:: +2: Bilateral:
Hernandez Catheter: Yes
--- NOTE | 2024-08-31 11:56 | W.PN.ONC ---
Today's Communication / Plan
-
Escalate dexamethasone dosing 8 mg every 6
Urgent XRT will discussed with Annalise RT and Radha RT may need transfer
He's been started on solumedrol for possible adrenal insufficiency (steroids are first line treatment for cord compression as well, though will need higher doses (and dexamethasone) if confirmed)
Started bicalutamide
Rec adding Lupron or similar in about ~2 weeks (details TBD)
Will continue to follow
Impression
Impression
- T5-6 cord compression
- rhabdomyolysis
- AVERY
- blastic bone metastases
- prostate cancer with bladder obstruction, extensive pelvic, retroperitoneal adenopathy; PSA > 2000, alk phos > 2400
- bilateral hydronephrosis
- leg weakness and hyperreflexia on exam
Plan
Plan
Had extensive conversation with patient regarding his goals of care and insurance difficulties due to him having no [employer] insurance.
Patient states he would like to improve from this acute illness and then return to [facility] for oncologic management. However, ultimately patient is agreeable to inpatient MRI, he understands the urgency and sever
Subjective/Objective
Subjective/Objective
Patient resting. No pain continued lower extremity weakness
Vital Signs:
Vital Signs
Temp Pulse Resp BP Pulse Ox
98.1 F 78 12 112/65 96
08/31/24 08:05 08/31/24 11:00 08/31/24 11:00 08/31/24 11:00 08/31/24 11:00
General: Comfortable
HEENT: Normocephalic
Cardiovascular: S1-S2 and Peripheral Edema (Both extremities)
Respiratory: Non-Labored Respirations
GI: Soft and Non Distended
Neurology: Awake, AO x 3 and Other (Lower extremity weak 1/5. Decreased sensation.)
Skin: Warm
Lab Results:
Laboratory Data
WBC 8.4 10^3/uL (4.8-10.8) 08/31/24 03:51
Hgb 7.4 g/dL (13.0-18.0) L 08/31/24 03:51
Plt Count 175 10^3/uL (130-400) 08/31/24 03:51
PT 17.5 Sec (11.4-14.6) H 08/31/24 03:51
INR 1.39 08/31/24 03:51
APTT 37.4 Sec (23.4-35.0) H 08/31/24 03:51
eGFR 24.43 08/31/24 03:51
--- NOTE | 2024-08-31 11:58 | PTCARENOTE ---
Minimal UOP. Bladder scan for 660cc. Deflated hernandez balloon, advanced cath 1 cm to hub and reinflated balloon with no change to UOP. Attempted to flush with significant resistance. Manager Of Construction notified. Pt without c/o of fullness or urge to void.
--- NOTE | 2024-08-31 12:37 | PTCARENOTE ---
Addendum entered by Beatriz Gomes RN 08/31/24 13:01:
22F placed.
Original Note:
Dr Duong to bedside. Hernandez removed. New hernandez placed with 925cc out.
--- NOTE | 2024-08-31 12:46 | PTCARENOTE ---
notified by Dr. Guthrie that Neurosurgery requesting Stat transport to [facility] for spinal radiation.
--- NOTE | 2024-08-31 12:49 | W.PN.URO.CBU ---
Today's Communication / Plan
-
new larger Baeza placed successfully
Assessment / Plan
-
presumed metastatic prostate cancer [PSA >2000] causing urinary retention/obstructive nephropathy/AVERY
Diagnosis
-
Date of Service: August 31, 2024
-
Patient Diagnosis:
suspected metastatic prostate cancer causing urinary retention/obstructive nephropathy/AVERY
Rec: keep Baeza
med tx of prostate cancer per Med Onc
recommend TURP later during month after stabilization of acute issues
Subjective
-
Baeza not draining per Dr Massey
Objective
-
Vital Signs
Temp Pulse Resp BP Pulse Ox
98.4 F 78 17 107/65 97
08/31/24 12:06 08/31/24 12:30 08/31/24 12:30 08/31/24 12:00 08/31/24 12:30
Intake and Output
08/30/24 08/31/24 09/01/24
06:59 06:59 06:59
Intake Total 3031.0 / 3054.0 519 / 524 565 / 565
Output Total 470 / 470 105 / 105 950 / 950
Balance 2561.0 / 2584.0 414 / 419 -385 / -385
Intake:
Oral fluids 740 / 740 340 / 340
IV fluids (Total) 1289.0 / 1312.0 174 / 179 315 / 315
IVF 535 / 540 60 / 65 315 / 315
Levo 109.0 / 109.0
Neosynephrine 579 / 597 114 / 114
Vaso 66 / 66
IV piggybacks 1002 / 1002 5 / 5
Blood Product Amount Infused ( 0 / 0 250 / 250
mL)
Packed Rbc Leukoreduced Unit 0 / 0 250 / 250
[id number]
Output:
Urine, Baeza 470 / 470 105 / 105 950 / 950
Laboratory Results
08/31/24 03:51
08/31/24 03:51
Physical Exam
-
existing Baeza removed; edematous phallus prepped then 22 Fr Baeza placed with return of anupama urine
--- NOTE | 2024-08-31 14:40 | W.PN.HOSP.TC ---
Today's Communication/Plan
-
dc to [facility]
Assessment / Plan
Assessment / Plan
Septic Shock
resolved, does not require Pressors,
Pt only doctor as outpatient is Ngiel Winston of Cardiology at [facility]
Urine Cx neg
Blood Cx +Staph aureus. MSSA 2 out of 2 bottles
input of ID appreciated
1. AVERY/Rhabdo - suspect partly due to rhabdomyolysis but unsure given duration of being down and degree of cpk elevatin and AVERY there is possibly ongoing CKD whose etiology is unclear. Patient has h/o CHF but appears euvolemic today. Not currently
on diuretics and has borderline low BPs recently. No hydronephrosis or bladder retention obvious on CT scan.
- admit to imu
- stopped IV fluids NS
- monitor strict i/os
- trend cpk
- monitor for signs of overload and may initiate diuretics if SBP > 110
- phos level, urine protein/cr,
- nephrology consultation
Creat 4.4-->5.0-->2.4-->1.1-->1.5
2.AFIB RVR - known afib, was to be on apixaban but could not afford. On coreg 25 bid and aspirin. Rates in the 110s
- rehydration
- consider restart apixaban pending decision on biopsy
- hold on Beta Blockers due to hypotension
- diltiazem gtt if needed for rate control
- cardiology consult
3. Elevated T bili and alkphos - liver/billiary mets versus non liver elevation of alkphos - most likely bone related
- 64 ggt
-check direct bili
- RUQ u/s (non-con CT)
- consider abdominal mri w/o contrast
4. Metastatic dz - Suspect elevated alkphos is due to osseus lesions from Prostatic metastatic disease.
- oncology consult
- PSA >2000, cea 1.77, ca 19-9 17, afp 4
- additional imaging somewhat limited but lymph node or lesions may be biopsied
- patient prefers to complete w/u in [place] if possible
- PT evaluation. MRI of spine with extensive disease: Extensive bony metastatic disease. 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
5. Pt notes weak lower extremities
Bryson raises concern for metastatic disease to the spine and would like to check MRI.
Will request CM consult
6. Anemia
Acute blood loss anemia with baseline chronic anemia of chronic disease (most likely related to tumor burden)
Hgb 10.1-->9.3-->9.6-->8.9-->8.0-->7.7-->7.5-->7.5
will T&S for potential transfusion tomorrow
CHEST:
1. MULTIFOCAL BLASTIC OSSEOUS METASTATIC DISEASE involving the thoracic spine, ribs, and sternum.
2. Acute superior and inferior endplate fractures of T7 (either pathologic or traumatic in etiology).
3. Multiple acute and subacute right rib fractures (either pathologic or traumatic in etiology).
4. Moderate cardiomegaly.
5. Multiple small subcentimeter centrilobular pulmonary nodules in the right upper lobe which are most likely secondary to peripheral endobronchial infection. Pulmonary metastases are an alternative diagnostic possibility.
6. Minimal bilateral pleural effusions.
ABDOMEN and PELVIS:
1. SEVERE PROSTATE CANCER with extracapsular extension of malignancy and URINARY BLADDER OUTLET OBSTRUCTION.
2. Severely distended urinary bladder.
3. Moderate bilateral hydronephrosis.
4. VERY EXTENSIVE BLASTIC OSSEOUS METASTATIC DISEASE in the lumbar spine, pelvic bones, and proximal femurs.
5. Multiple pathologic fractures in the lower lumbar spine.
6. Extra osseous extension of malignancy from the sacrum and left pubic bone into the adjacent soft tissues.
7. SEVERE METASTATIC LYMPHADENOPATHY in the pelvis.
8. Moderate metastatic lymphadenopathy in the retroperitoneum.
9. Large amount of fecal material in the proximal colon.
10. Moderate splenomegaly.
DVT PPX - on admission, INR was 2.42/PTT 85.3-->2/3 1.85/61.3
most likely related to septic shock, Heparin resumed 5k q12h await further input from Heme/Onc
Very complex situation on multiple aspects
will dc in transport
discussed with Dr. Vinson
reviewed with ZOILA Donovan
reviewed with CCM and Oncology
More than 30 minutes spent in discharge including
Final examination of the patient
Summarizing hospital stay
Instructions for continuing care to all relevant caregivers
Preparation of discharge records, prescriptions, and referral forms
Total time spent (in minutes): 65
Code status - full code
Anticipated Discharge: Today
Subjective/Interval History
-
Date of Service: August 31, 2024
Awake alert
Objective Data
-
Labs:
Laboratory Results
08/31/24
03:51
WBC 8.4
Hgb 7.4 L
Hct 22.2 L
Plt Count 175
PT 17.5 H
INR 1.39
APTT 37.4 H
Sodium 130 L
Potassium 4.0
Chloride 101
Carbon Dioxide 19 L
BUN 61 H
Creatinine 2.8 H
Glucose 135 H
Calcium 7.4 L
Total Bilirubin 0.7
AST 128 H
ALT 51 H
Alkaline Phosphatase 1050 H
Vital Signs:
Vital Signs
Temp Pulse Resp BP Pulse Ox
98.4 F 95 15 91/64 96
08/31/24 12:06 08/31/24 14:00 08/31/24 14:00 08/31/24 14:00 08/31/24 14:00
I&O
08/30/24 08/31/24 09/01/24
06:59 06:59 06:59
Intake Total 3031.0 / 3054.0 519 / 524 565 / 565
Output Total 470 / 470 105 / 105 1590 / 1590
Balance 2561.0 / 2584.0 414 / 419 -1025 / -1025
Review of Systems
-
History Source: Patient, Family, Physician and Coordinated Provider
Constitutional: Reports Fever (98.1-->102.1-->101.2-->100.9-->afebrile since 08/29 13:03)
EENT: Reports No Symptoms Reported
Respiratory: Reports No Symptoms
Cardiac: Denies Chest Pain
Abdomen/GI: Reports Constipated (no BM in 3 weeks)
Genitourinary: Reports Other (was not urinating, ordered hernandez, drained >1000 cc)
Physical Exam
-
General: Well Developed, Well Nourished and Other (appears much less ill than when initially admitted)
HEENT: Normocephalic and Atraumatic
Respiratory: Clear to Auscultation (on shallow respirations)
Cardiac: S1/S2 and Irregular Rhythm
GI: Soft, Nontender and Nondistended
Musculoskeletal: No Clubbing, No Cyanosis and No Edema
Skin: Warm and Dry
--- NOTE | 2024-08-31 14:48 | CM ---
Patient in ICU with metastatic prostate cancer with Dx T-5-6 cord compression. Room air. Receiving IV Abx, IV Steroids.
Notified by Dr Guthrie urgent transfer needed to [facility] for emergency radiation therapy. Met with Tomasz Guthrie & Torrey. A Dr Ward, radiation oncologist at [facility], agreed to transfer.
Spoke with Summer (ph [phone]) & Carleen (ph [phone]), [facility], [facility]; patient is accepted by Dr Ariadne Vinson, Hospitalist, to the Stepdown Unit, Room 2021, and they are ready to receive the patient. Carleen was
notified of 3:30pm transport time. for report [phone], fax [phone]. Faxed Carleen patient's face sheet as requested.
Met with patient and ;
patient with sleep mask in place who appeared to be sleeping.
agrees to transfer to [facility] today by ambulance.
was updated that [facility] has accepted him in transfer and ambulance was scheduled for 3:30 today.
Plan urgent transfer to [facility] today by ALS ambulance.
--- NOTE | 2024-08-31 14:48 | PTCARENOTE ---
Report given to Patricia at [facility]. Pt to go S ambulance to Room 2021.
--- NOTE | 2024-08-31 17:36 | W.DS.TRANS ---
DC Summary - [facility]
-
Discharge Instructions:
Sleep Apnea Risk Intermediate
Instructions:
Stand-Alone Forms:
Changes to Home Medications: Yes
Discharge Medications:
DC Medications w/original date entered in [email or web address]
aspirin 81 mg capsule 81 mg PO DAILY Blood Clot Prevention/Tx 08/27/24
carvedilol 25 mg tablet 25 mg PO BID Heart Disease/Condition 08/27/24
furosemide 40 mg tablet (Lasix) 40 mg PO DAILY Fluid Retention/Swelling 08/27/24
magnesium 250 mg tablet 250 mg PO DAILY Electrolyte Repletion 08/27/24
multivitamin 1 tab PO DAILY Supplement 08/27/24
Home Medication Changes
transfer medications to [facility] as per dictated note
Pending Results: No
== END 2024-08-31 16:03 | disposition short-term general hospital (02) | DRG 722 ==
LOC: ICU 04:21
PROVIDERS: Internal Medicine Critical Care Medicine; Physician Assistant Medical; ADMITTING PHYSICIAN Internal Medicine; ATTENDING PHYSICIAN Internal Medicine; CONSULT PHYSICIAN Internal Medicine; CONSULT PHYSICIAN Internal Medicine Cardiovascular Disease; CONSULT PHYSICIAN Internal Medicine Critical Care Medicine; CONSULT PHYSICIAN Internal Medicine Hematology & Oncology; CONSULT PHYSICIAN Internal Medicine Infectious Disease; CONSULT PHYSICIAN Specialist; EMERGENCY PHYSICIAN Student in an Organized Health Care Education/Training Program
PROC: 05HY33Z Insertion of Infusion Device into Upper Vein, Percutaneous Approach (ICD-10-PCS; 2024-08-27)
PROC: 30233N1 Transfusion of Nonautologous Red Blood Cells into Peripheral Vein, Percutaneous Approach (ICD-10-PCS; 2024-08-31)
DX: C61 Malignant neoplasm of prostate (principal); A41.01 Sepsis due to Methicillin susceptible Staphylococcus aureus; R65.21 Severe sepsis with septic shock; S22.41XA Multiple fractures of ribs, right side, initial encounter for closed fracture; S22.069A Unspecified fracture of T7-T8 vertebra, initial encounter for closed fracture; C79.51 Secondary malignant neoplasm of bone; N17.9 Acute kidney failure, unspecified; M62.82 Rhabdomyolysis; D62 Acute posthemorrhagic anemia; I50.32 Chronic diastolic (congestive) heart failure; I42.8 Other cardiomyopathies; N13.30 Unspecified hydronephrosis; D68.9 Coagulation defect, unspecified; E87.1 Hypo-osmolality and hyponatremia; C77.5 Secondary and unspecified malignant neoplasm of intrapelvic lymph nodes; N32.0 Bladder-neck obstruction; I48.91 Unspecified atrial fibrillation; D63.0 Anemia in neoplastic disease; Z79.82 Long term (current) use of aspirin; J45.909 Unspecified asthma, uncomplicated; Z80.42 Family history of malignant neoplasm of prostate; Z86.73 Personal history of transient ischemic attack (TIA), and cerebral infarction without residual deficits; D69.6 Thrombocytopenia, unspecified; K59.00 Constipation, unspecified; Z80.6 Family history of leukemia; I45.10 Unspecified right bundle-branch block; Z79.899 Other long term (current) drug therapy; J32.1 Chronic frontal sinusitis; Z80.0 Family history of malignant neoplasm of digestive organs; F10.10 Alcohol abuse, uncomplicated; Z91.199 Patient's noncompliance with other medical treatment and regimen due to unspecified reason; G89.29 Other chronic pain; I08.1 Rheumatic disorders of both mitral and tricuspid valves; I11.0 Hypertensive heart disease with heart failure; Z59.71 Insufficient health insurance coverage; Z91.148 Patient's other noncompliance with medication regimen for other reason; Z79.01 Long term (current) use of anticoagulants; Z11.52 Encounter for screening for COVID-19
CPT/HCPCS: 36600; 51702; 51798; 70450; 71045; 71250; 72125; 72156; 72157; 72158; 74176; 80048; 80053; 80202; 81003; 81015; 82077; 82105; 82140; 82248; 82306; 82378; 82533; 82550; 82570; 82607; 82805; 82977; 83880; 84100; 84156; 84300; 84443; 85014; 85018; 85025; 85027; 85379; 85384; 85610; 85652; 85730; 86140; 86301; 86850; 86900; 86901; 86920; 87040; 87086; 87150; 87186; 87205; 87502; 87811; 92610; 93005; 93306; 93970; 96361; 96365; 96366; 97163; 99291; A9575; G0103; P9016